=== PATIENT | male | born 1945 | race Caucasian/White ===

== ENCOUNTER 2021-12-06 07:00 | Inpatient (IN) ==
[2021-12-06] MEDS ORDERED: WATER, STERILE FOR INJ 10 ML VIAL ONE (07:02)
[2021-12-06] MEDS ORDERED: LIDOCAINE 1% LOCAL 20 ML VIAL ONE ×2 (07:02→17:00)
[2021-12-06] MEDS ORDERED: VANCOMYCIN HCL 1000MG/20ML VIAL ONE (07:02)
[2021-12-06] MEDS ORDERED: BUPIVACAINE 0.25% 30 ML VIAL ONE (07:02)
[2021-12-06] MEDS ORDERED: ceFAZolin 330 MG/ML 1 GM VIAL ONE (07:31)
[2021-12-06] MEDS ORDERED: fentaNYL citrate 100 MCG/2 ML VIAL ONE (07:32)
[2021-12-06] MEDS ORDERED: MIDAZOLAM HCL 5 MG/ML 1 ML VIAL ONE (07:32)
--- NOTE | 2021-12-06 07:57 | History & Physical Report ---
Date of Service December 06, 2021 Assessment & Plan (1) SSS (sick sinus syndrome): Plan: pt for a dual chamber ppm; re-discussed the procedure and potential risks of the procedure with the pt and consents signed History of Present Illness Chief Complaint: SOB Primary Care Provider: Raphael Garcias MD pt presents for an elective ppm today due to SSS +fatigue, SOB and foggy headedness with decreased activity Allergies Allergy/AdvReac Type Severity Reaction Status Date / Time No Known Allergies Allergy Unverified 01/09/15 17:54 Home Medications Medication Instructions Recorded Confirmed Type Glucosamine-Chondr (boswellia) PO 12/06/21 History calcium citrate 150 mg capsule mg PO 12/06/21 History diclofenac sodium 1 % topical gel 2 g TOPICAL QID 12/06/21 12/06/21 History ergocalciferol (vitamin D2) 10 mcg PO 12/06/21 History (400 unit) tablet geriatric multivitamin-min tab PO 12/06/21 History Most Recent Cardiac Tests: No Data to Display Past Med/Surg History Social History Smoking Status: Former smoker Hx Alcohol Use: Yes Alcohol type: beer Hx Substance Use: No Preferred Language: Singaporean Communication Ability: Effective User Experience Analyst Required: No Beliefs That Will Affect Care: None Current Living Situation: Spouse Other Information That Helps Us Care for You: No Feels Safe at Home: Yes Safety Concerns: Feels Safe At This Time Review of Systems All systems reviewed & are unremarkable except as noted in HPI & below Physical Exam Physical Exam: aaox3, NAD NC/AT, EOMI Supple No JVD Nrl S1/S2, No murmur CTA b/l no w/r/r soft nt/nd no LE edema b/l skin intact no focal deficits Results & Data ([facility]) Vital Signs (Past 12 Hours) Vital Signs Temp Pulse Resp BP Pulse Ox 12/06/21 07:18 36.6 C 45 L 16 142/70 H 98
--- NOTE | 2021-12-06 07:58 | Pre Anesthesia Assessment ---
Date of Service December 06, 2021 Pre Sedation Assessment Vital Signs Temp Pulse Resp BP Pulse Ox 12/06/21 07:18 36.6 C 45 L 16 142/70 H 98 Cardiovascular RRR, no murmur, no edema + bradycardic Respiratory normal respiratory effort, lungs clear to auscultation Pre-Sedation Airway Assessment Smoking Status: Former smoker Hx Sleep Apnea: No Hx Difficult Intubation: No Short, Thick Neck: No Thyromental Distance: < 3.5 Finger Breadths Oral Cavity: + WNL Mallampati Class: II ASA: ASA3 NPO Status Date of Last Intake of Fluids: 12/05/21 Date of Last Intake of Solid Food: 12/05/21 Procedure Planning Contraindications for Sedation: none Current Medications Reviewed: Yes Notes The planned sedation has been discussed with the patient. Informed Consent was obtained. I have identified the patient, determined the appropriateness of sedation and have assessed the patient immediately prior to the procedure. All medicine(s) and interventions are by my order.
--- NOTE | 2021-12-06 09:53 | Post Anesthesia Assessment ---
Date of Service December 06, 2021 Post Sedation Assessment Vital Signs Temp Pulse Resp BP Pulse Ox 12/06/21 07:18 36.6 C 45 L 16 142/70 H 98 Recovery Score Activity: Moves 4 extremities Respiration: Deep Breath/Cough Circulation: +/-20% PreAnes Value Consciousness: Fully Awake Oxygen Saturation: > 92% On Room Air Discharge Sedation Level of Care: Fast Track Phase II Post Sedation Plan On clinical assessment, the patient appears to have tolerated the sedation without complications. Patient is recovering as anticipated. Patient will continue to be monitored by nursing and may be discharged when sedation discharge criteria are met per below protocol. Upon Completions of procedure up to 15 minutes continue every 5 minute vital signs and the P.A.R. score; then discharge to a Phase I or Fast Track to Phase II per the following guidelines: * Discharge Patient to appropriate Phase II area if PAR is 8 or greater or return to pre- procedure baseline. The post - procedure orders will be as directed. * If PAR score is less than 8 or not return to pre-procedure baseline then patient will follow Phase I monitoring till PAR is reached for Phase II. The Phase I may be done in procedure room or may call to secure a Phase I area. * If naloxone or flumazenil are used for reversal, hold in Phase I for continued monitoring from when last reversal dose was given for a minimum of 60 minutes or longer pending the nurse and/or physician discretion of patient condition before discharge to Phase II. Please call the Sedation Physician to re-evaluate and complete post-note for discharge to Phase II area. Do NOT discharge from procedure sedation or Phase 1 until post- sedation evaluation note is complete by procedure /sedation MD Sedation Discharge Instructions to be given to the patient at discharge to home.
--- NOTE | 2021-12-06 09:54 | Operative Report ---
Post Operative Report Pre & Post Diagnosis SSS Operation Date: 12/06/21 08:00 dual chamber ppm HIS bundle EGMs peripheral venogram <No data on this case meets the specified criteria> I identified the patient and participated in the time-out.: Yes Procedure Operation Date: 12/06/21 08:00 <No data on this case meets the specified criteria> Surgeon Julia Henderson, DO Supervisor Dental Laboratory none Estimated Blood Loss 40 Findings Consistent with Post-Op Diagnosis Specimens none Description of Procedure see official report I attest to the content of the Intraoperative Record and any orders documented therein. Any exceptions are noted below.
--- NOTE | 2021-12-06 12:29 | XRay Report ---
SINGLE VIEW CHEST CLINICAL HISTORY: Status post pacemaker implantation. FINDINGS: An AP, portable, upright chest radiograph is compared to study dated 01/09/2015. A 2-lead car diac pacemaker has been placed and partially obscures the left upper chest. Leads project over the ri ght atrial appendage and the right ventricle. The heart is enlarged. The pulmonary vasculature is non congested. Chronic interstitial thickening is similar to previous. The lungs and pleural spaces are o therwise clear. There is a moderate left apical pneumothorax with approximate 4.5 cm of apical pleura l separation. The bony thorax is grossly intact. IMPRESSION: 1. A 2-lead cardiac pacemaker has been implanted as above. 2. There is a moderate left apical pneumothorax. 3. Cardiomegaly without radiographic evidence of congestive failure ACT 112: Negative or not required by law. Electronically signed by: Piter Salazar M.D. 12/06/2021 12:27 PM
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
--- NOTE | 2021-12-06 15:59 | XRay Report ---
XR chest 1V portable HISTORY: 76 years-old Male Left pneumothorax follow-up study in a patient with left-sided pneumothor ax COMPARISON: Chest radiograph of same day at 12:13 PM TECHNIQUE: AP view of the chest FINDINGS: The cardiac silhouette is enlarged. Left subclavian pacer redemonstrated. Large left-sided pneumothor ax is increased in size from the prior study, now with pleural separation of 9.3 cm at the left lung apex, previously 4.6 cm. Left lung volume loss. The right lung is clear. No pleural effusion, airspac e consolidation or overt pulmonary edema. The bones appear grossly intact. IMPRESSION: Large left-sided pneumothorax has increased in size from prior. Findings were discussed with physician assistant product manager Piter Cuevas on 12/06/2021 at 3:55 PM. ACT 112: Negative or not required by law. The above report was generated using voice recognition software. It may contain grammatical, syntax o r spelling errors. Electronically signed by: Ifeanyi Espinoza M.D. 12/06/2021 3:58 PM
[2021-12-06 16:25] LABS: Prothrombin Time 10.9 Seconds (9.0-12.0)
[2021-12-06 16:37] LABS: Basophils # (auto) 0.03 K/uL (0-0.2); Basophils % (auto) 0.3 %; Eosinophils # (auto) 0.12 K/uL (0-0.5); Eosinophils % (auto) 1.1 %; Hematocrit (blood only) 42.5 % (42-52); Hemoglobin 14.5 g/dL (14.0-18.0); Immature Granulocytes # (auto) 0.03 K/uL (0.00-0.02); Immature Granulocytes % (auto) 0.3 %; Lymphocytes # (auto) 1.25 K/uL (1.2-3.4); Lymphocytes % (auto) 11.3 %; Mean Corpuscular Hemoglobin 30.7 pg (25-34); Mean Corpuscular Hgb Conc 34.1 g/dL (32-36); Mean Corpuscular Volume 89.9 fL (80-100); Mean Platelet Volume 12.1 fL (7.4-10.4); Monocytes # (auto) 0.93 K/uL (0.11-0.59); Monocytes % (auto) 8.4 %; Neutrophils # (auto) 8.67 K/uL (1.4-6.5); Neutrophils % (auto) 78.6 %; Platelet Count 209 K/uL (130-400); RDW Coefficient of Variation 13.7 % (11.5-14.5); RDW Standard Deviation 45.7 fL (36.4-46.3); Red Blood Count 4.73 M/uL (4.7-6.1); White Blood Count 11.03 K/uL (4.8-10.8)
--- NOTE | 2021-12-06 17:33 | XRay Report ---
XR chest 1V portable HISTORY: chest tube placement COMPARISON: Chest 12/06/2021. FINDINGS: Interval placement of a left basilar chest tube. The large left pneumothorax has decreased in size. This demonstrates a pleural gap of 3.4 cm, previously measuring 9.3 cm. Left-sided dual-lloyd lesvia pacemaker is again noted. No mediastinal shift. The right lung is clear. There are few left mid t o lower lung zone linear densities suggesting residual atelectasis from reexpansion of the left lung. The heart remains mildly enlarged. IMPRESSION: Interval placement left-sided basilar chest tube with decrease in size in the left pneumothorax as de scribed above. ACT 112: Negative or not required by law. Electronically signed by: Rick Mata M.D. 12/06/2021 5:32 PM
--- NOTE | 2021-12-06 17:51 | Procedure Note ---
Procedure Note Date of Service December 06, 2021 Note PNEUMOTHORAX CATHETER PLACEMENT NOTE: Procedure: Pneumothorax catheter Chest Tube Placement Attending: Dr. Quesada APC: Piter Cuevas PA-C Indication: Enlarging left pneumothorax status post pacemaker placement Anesthesia: 15 mL lidocaine 1% Written consent was obtained by Piter Cuevas PA-C as delegated by Dr. Quesada and placed on the chart. Prior to procedure, chest x-ray films were reviewed by myself and demonstrated a large left pneumothorax greater than 9 cm. A time-out was completed verifying correct patient, procedure, site, positioning, and implant(s) or special equipment which revealed a left-sided cardiac pacemaker. Utilizing bedside ultrasound, chest wall was evaluated for location for optimal chest tube placement. Sliding lung was not identified above the fifth intercostal space. Location between the 5th and 6th left ribs were marked on the skin using gentle pressure with a thermometer probe cover. The left side chest wall was prepped with chlorhexidine and draped in the typical sterile fashion. 8mL of 1% Lidocaine without epinephrine was used to anesthetize the skin down to the dorsal surface. Air return heralded entry into the pleural space. Lidocaine was injected into the pleural space for increased anesthetization for a total of 15 mL of lidocaine. Scalpel was used to make small incision of the superficial tissue, parallel to the direction of the rib anatomy. Introducer needle with overlying catheter was inserted in perpendicular fashion taking care to ride just above the dorsal surface of the rib. Entry into the pleural space was heralded by air return into the syringe while under gentle aspiration. A stopcock was placed on the pigtail catheter and was immediately connected to pre-prepared HOWARD pleur-evac system. Pigtail was sutured securely in place using a 3-0 silk suture and Vaseline gauze was placed around the site and a sterile dressing was applied. Chest tube was placed to [id number] suction. Patient did have a vagal response to the completion of the procedure including diaphoresis and passing nausea. Otherwise, he tolerated the procedure well. There was no change in blood pressure, heart rate, respiratory rate, or oxygenation. SaO2 was above 90% for the entire procedure. Blood Loss: Minimal Complications: None Post procedure Chest X-ray was ordered and reviewed by myself which demonstrated low but adequate placement with a decrease in the pleural space to around 3-1/[address] Quesada was immediately notified by telephone with report of the procedure. Chest x-ray was then confirmed by radiology. The radiological report was reviewed and was consistent with my findings at the time of the placement. Coding CPT Codes Pulmonary/Thoracic - Pulmonary and Thoracic: 70856 Tube thoracostomy ([id number]) Pulmonary/Thoracic - Pulmonary and Thoracic: 87410 US, Chest, real time with imaging documentation ([id number]) [facility] Procedure Codes (Charges) Pulmonary/Thoracic Procedure 1: Pulmonary and Thoracic: 57937 Tube thoracostomy Procedure 2: Pulmonary and Thoracic: 73133 US, Chest, real time with imaging documentation
[2021-12-06] MEDS ORDERED: FLUTICASONE FUROATE 100MCG 14 PUFFS/INHALER INH SCH (21:00)
[2021-12-06] MEDS ORDERED: FLUTICASONE PROP HFA INH 44 MCG INHALER INH SCH (21:00)
[2021-12-07] MEDS ORDERED: ACETAMINOPHEN 325 MG TAB PO PRN (01:59)
--- NOTE | 2021-12-07 07:36 | XRay Report ---
XR chest 1V portable HISTORY: 76 years-old Male Ptx follow-up study in a patient with left-sided pneumothorax. COMPARISON: Chest radiograph 12/06/2021 TECHNIQUE: Portable AP view of the chest FINDINGS: Dual lead left subclavian pacer. The cardiac silhouette is enlarged. A left-sided chest tube projects over the lateral left lung base. There is decreased size of the left apical pneumothorax, now with p leural separation of approximately 5 mm. Mild bibasilar densities suggest atelectasis. Degenerative c hanges of the shoulders and spine. IMPRESSION: Left-sided chest tube in place with tiny residual left apical pneumothorax, decreased in size from prior. ACT 112: Negative or not required by law. The above report was generated using voice recognition software. It may contain grammatical, syntax o r spelling errors. Electronically signed by: Ifeanyi Espinoza M.D. 12/07/2021 7:34 AM
--- NOTE | 2021-12-07 09:20 | Pulmonology Progress Note ---
Date of Service December 07, 2021 Assessment & Plan (1) Pneumothorax, left: (2) S/P placement of cardiac pacemaker: Plan: Attending: Dr. Quesada Impression: 76-year-old male presented for elective pacemaker placement. During the procedure, patient had no complications, no hemodynamic shift, hypoxia, or any distress. Routine chest x-ray performed after the procedure revealed 4.6 cm left pleural separation. Repeat chest x-ray and 3- hour showed pleural separation of 9.5 cm. An 8 Belarusian pneumothorax catheter was placed in the midaxillary line on the left. Repeat chest x-ray this morning shows near resolution of the pneumothorax. Recommendations: 1. Left pneumothorax: * Iatrogenic status post left pacemaker placement. * 8 Belarusian pneumothorax catheter placed in the left mid axillary region late yesterday afternoon with immediate improvement to pneumothorax * Patient placed on suction with pneumothorax catheter last night at -20 mmHg. * Chest x-ray this morning with 5.6 mm of pleural separation * Chest tube was clamped at oh 8:30 AM this morning * Repeat chest x-ray at 11 AM * If no expansion of pneumothorax and no air leak, can remove chest tube * Probable discharge later today from a pulmonary perspective. Thank you for including us in the care of this patient. We will continue to follow along with you. Please feel free to call with any questions. Admission and Anticipated Discharge Date Admission Date: December 06, 2021 Supervising Physician Co-Signing Physician Notes Patient seen with PA-Art. Agree with assessment and plan. Chest tube removed at bedside. Minimal apical pneumothorax seen after clamping the chest tube for 4 hours. Patient informed to avoid lifting any heavy objects over 5 pounds for the next 10 days. Avoid flying in aircraft scuba diving for the next 4 to 6 weeks. Should he have any recurrence of chest pain or severe shortness of breath, he is to go to the ER. Subjective Attending: Dr. Quesada Patient seen and examined in room 240. Patient had iatrogenic pneumothorax yesterday status post pacemaker placement. Repeat chest x-ray showed expanding pneumothorax. An 8 Belarusian pneumothorax catheter was placed last evening and patient was placed on suction at -20 cm of water/millimeters of mercury. Patient did well overnight. On examination this morning, patient has no air leak. Repeat chest x-ray shows near resolution of left pneumothorax. Chest tube is clearly visualized and in place. On examination chest tube is secure. There is no drainage through the dressing. There is no pleural fluid or blood in the Pleur-evac. Patient reports some localized tenderness at the insertion site of the chest tube. He has no shortness of breath. No fever. No chest pain. No nausea or vomiting. He denies any acute changes. Some tenderness at the site of the pacemaker placement. Otherwise no acute complaints. Review of Systems Review of Systems: A total of 10 systems was reviewed and is negative other than as listed above in HPI. Physical Exam Physical Exam: GENERAL : No acute distress. Pleasant. Talkative. No conversational dyspnea EYES: No icterus, gaze conjugate NOSE: No evidence of epistaxis MOUTH: No lesions or candidiasis NECK: Supple LUNGS: CTA B/L, no wheezes, rales or rhonchi. Good breath sounds throughout. Breath sounds are equal bilaterally at the bases and at the apices. HEART: Regular, rate controlled ABDOMEN: Soft, NT, ND, BS Present EXTREMITIES: No LE edema, pedal pulses intact NEURO: A&OX3 Results & Data Results & Data ([facility]) Vital Signs (Past 12 Hours) Vital Signs Temp Pulse Pulse Resp BP BP Pulse Ox 12/07/21 07:35 36.9 C 60 18 133/76 94 12/07/21 03:50 36.9 C 65 16 132/73 96 12/07/21 00:00 60 12/06/21 23:39 36.8 C 64 20 104/64 95 Critical Care Results & Data Vital Signs (Past 12 Hours) Vital Signs Temp Pulse Pulse Resp BP BP Pulse Ox 12/07/21 07:35 36.9 C 60 18 133/76 94 12/07/21 03:50 36.9 C 65 16 132/73 96 12/07/21 00:00 60 12/06/21 23:39 36.8 C 64 20 104/64 95 Lab & Micro Results (Past 24 Hours) RBC 4.73 M/uL (4.7-6.1) 12/06/21 WBC 11.03 K/uL (4.8-10.8) H 12/06/21 Hgb 14.5 g/dL (14.0-18.0) 12/06/21 Hct 42.5 % (42-52) 12/06/21 MCV 89.9 fL (80-100) 12/06/21 MCH 30.7 pg (25-34) 12/06/21 MCHC 34.1 g/dL (32-36) 12/06/21 RDW Standard Deviation 45.7 fL (36.4-46.3) 12/06/21 RDW Coefficient of Variation 13.7 % (11.5-14.5) 12/06/21 Plt Count 209 K/uL (130-400) 12/06/21 MPV 12.1 fL (7.4-10.4) H 12/06/21 Neutrophils (%) (Auto) 78.6 % 12/06/21 Lymphocytes (%) (Auto) 11.3 % 12/06/21 Monocytes # (Auto) 0.93 K/uL (0.11-0.59) H 12/06/21 Eosinophils # (Auto) 0.12 K/uL (0-0.5) 12/06/21 Immature Granulocyte % (Auto) 0.3 % 12/06/21 Neutrophils # (Auto) 8.67 K/uL (1.4-6.5) H 12/06/21 Lymphocytes # (Auto) 1.25 K/uL (1.2-3.4) 12/06/21 Monocytes # (Auto) 0.93 K/uL (0.11-0.59) H 12/06/21 Eosinophils # (Auto) 0.12 K/uL (0-0.5) 12/06/21 Basophils # (Auto) 0.03 K/uL (0-0.2) 12/06/21 Immature Granulocyte # (Auto) 0.03 K/uL (0.00-0.02) H 12/06/21 No Data to Display Prothromb Time International Ratio 1.0 (0.9-1.1) 12/06/21 15:51 12/06/21 Diagnostic Findings (Past 24 Hours) Chest X-Ray 12/06/21 12:00 SINGLE VIEW CHEST CLINICAL HISTORY: Status post pacemaker implantation. FINDINGS: An AP, portable, upright chest radiograph is compared to study dated 01/09/2015. A 2-lead cardiac pacemaker has been placed and partially obscures the left upper chest. Leads project over the right atrial appendage and the right ventricle. The heart is enlarged. The pulmonary vasculature is noncongested. Chronic interstitial thickening is similar to previous. The lungs and pleural spaces are otherwise clear. There is a moderate left apical pneumothorax with approximate 4.5 cm of apical pleural separation. The bony thorax is grossly intact. IMPRESSION: 1. A 2-lead cardiac pacemaker has been implanted as above. 2. There is a moderate left apical pneumothorax. 3. Cardiomegaly without radiographic evidence of congestive failure ACT 112: Negative or not required by law. Electronically signed by: Piter Salazar M.D. 12/06/2021 12:27 PM Chest X-Ray 12/06/21 15:00 XR chest 1V portable HISTORY: 76 years-old Male Left pneumothorax follow-up study in a patient with left-sided pneumothorax COMPARISON: Chest radiograph of same day at 12:13 PM TECHNIQUE: AP view of the chest FINDINGS: The cardiac silhouette is enlarged. Left subclavian pacer redemonstrated. Large left-sided pneumothorax is increased in size from the prior study, now with pleural separation of 9.3 cm at the left lung apex, previously 4.6 cm. Left lung volume loss. The right lung is clear. No pleural effusion, airspace consolidation or overt pulmonary edema. The bones appear grossly intact. IMPRESSION: Large left-sided pneumothorax has increased in size from prior. Findings were discussed with physician admin assistant Piter Cuevas on 12/06/2021 at 3:55 PM. ACT 112: Negative or not required by law. The above report was generated using voice recognition software. It may contain grammatical, syntax or spelling errors. Electronically signed by: Ifeanyi Espinoza M.D. 12/06/2021 3:58 PM Chest X-Ray 12/06/21 17:07 XR chest 1V portable HISTORY: chest tube placement COMPARISON: Chest 12/06/2021. FINDINGS: Interval placement of a left basilar chest tube. The large left pneumothorax has decreased in size. This demonstrates a pleural gap of 3.4 cm, previously measuring 9.3 cm. Left-sided dual-chamber pacemaker is again noted. No mediastinal shift. The right lung is clear. There are few left mid to lower lung zone linear densities suggesting residual atelectasis from reexpansion of the left lung. The heart remains mildly enlarged. IMPRESSION: Interval placement left-sided basilar chest tube with decrease in size in the left pneumothorax as described above. ACT 112: Negative or not required by law. Electronically signed by: Rick Mata M.D. 12/06/2021 5:32 PM Chest X-Ray 12/07/21 08:00 XR chest 1V portable HISTORY: 76 years-old Male Ptx follow-up study in a patient with left-sided pneumothorax. COMPARISON: Chest radiograph 12/06/2021 TECHNIQUE: Portable AP view of the chest FINDINGS: Dual lead left subclavian pacer. The cardiac silhouette is enlarged. A left- sided chest tube projects over the lateral left lung base. There is decreased size of the left apical pneumothorax, now with pleural separation of approximately 5 mm. Mild bibasilar densities suggest atelectasis. Degenerative changes of the shoulders and spine. IMPRESSION: Left-sided chest tube in place with tiny residual left apical pneumothorax, decreased in size from prior. ACT 112: Negative or not required by law. The above report was generated using voice recognition software. It may contain grammatical, syntax or spelling errors. Electronically signed by: Ifeanyi Espinoza M.D. 12/07/2021 7:34 AM I & O Totals 24 Hours 12/06/21 12/07/21 12/08/21 06:59 06:59 06:59 Intake Total 555 / 555 Output Total 600 / 600 Balance -45 / -45 Cumulative 10/24/21 07:52 thru 12/07/21 05:58 Intake Total 555 Output Total 600 Balance -45 RT Ventilator Mngmt (Last Documented) Ventilator Ordered Settings Respiratory Rate 18 12/07/21 07:35 Ventilator - PT Measurements Respiratory Rate 18 PG Care Time/CCT Total # of Minutes Spent Total Time Spent with Patient: Total time spent is greater than 50% in coordination of care (as documented) at patient's floor/unit and/or counseling patient: 30 minutes Coding Level of Care Code 26820 Subseq Hosp Care Lvl 2 Diagnoses Pneumothorax, left J93.9 S/P placement of cardiac pacemaker Z95.0 Time Spent (min) 30
--- NOTE | 2021-12-07 11:58 | XRay Report ---
XR chest 1V portable HISTORY: 76 years-old Male Left pnx/chest tube up study in a patient with left-sided pneumothorax COMPARISON: Chest radiograph of same day at 7:06 AM TECHNIQUE: Portable AP view of the chest FINDINGS: Dual lead left subclavian pacer. The cardiac silhouette is enlarged. A left-sided chest tube projects over the lateral left lung base. There is unchanged size of the left apical pneumothorax with pleura l separation of approximately 5 mm. Mild bibasilar densities suggest atelectasis. Degenerative change s of the shoulders and spine. IMPRESSION: Left-sided chest tube in place with tiny residual left apical pneumothorax. ACT 112: Negative or not required by law. The above report was generated using voice recognition software. It may contain grammatical, syntax o r spelling errors. Electronically signed by: Ifeanyi Espinoza M.D. 12/07/2021 11:57 AM
--- NOTE | 2021-12-07 13:23 | Discharge Summary ---
Date of Service December 07, 2021 Admission HPI Per Admitting Provider pt presents for an elective ppm today due to SSS +fatigue, SOB and foggy headedness with decreased activity Admission Exam Per Admitting Provider aaox3, NAD NC/AT, EOMI Supple No JVD Bradycardic S1/S2, No murmur CTA b/l no w/r/r soft nt/nd no LE edema b/l skin intact no focal deficits Principal Diagnosis Iatrogenic Pneumothorax SSS s/p ppm Discharge Exam aaox3, NAD NC/AT, EOMI Supple No JVD Nrl S1/S2, No murmur CTA b/l no w/r/r soft nt/nd no LE edema b/l skin intact no focal deficits ENMT Mallampati Class: II Respiratory normal respiratory effort, lungs clear to auscultation Cardiovascular RRR, no murmur, no edema Rate/Rhythm: + bradycardic Discharge Data Allergies Allergy/AdvReac Type Severity Reaction Status Date / Time No Known Allergies Allergy Unverified 01/09/15 17:54 Consultations 12/06/21 12:42 Consult Pulmonology Routine Procedures Performed Chest tube on the left Operation Date: 12/06/21 08:00 Actual Procedures p Pacer with A/V Leads (Dual) - Julia Henderson DO s Lead LV (No Priopr Implant) - DO carlita Olivares Angio Extremity Unilateral - Julia Henderson DO Ordered Studies 12/06/21 07:00 EP Lab Images for PACS ONCE 12/06/21 07:02 CL Cath Imgs for PACS use only Routine 12/06/21 16:09 US point of care ultrasound Routine Hospital Course (1) SSS (sick sinus syndrome): pt underwent dual chamber ppm complicated with a left sided PTX that required a chest tube. His ppm was interrogated the day of discharge and was normal functioning. (2) Pneumothorax, left: s/p chest tube; it was removed and post CXR looks good; ok for discharge from pulmonary perspective Total Time Total Time Spent Total Time Spent (In Minutes): 30 Discharge Plan Discharge Items Patient Disposition: Home - Self-Care Reason For Visit: STATUS POST DEVICE IMPLANTATIONS,PNEUMOTHORAX Discharge Diagnosis: SSS Condition on Discharge: Good Activity: As commented below Activity Comment: do not raise the left elbow over the left shoulder for 1 week Lifting: No more than 10 pounds Lifting Comment: do not lift more than 10 pounds with the left arm for 2 weeks Bathing: Keep incision dry Bathing Comment: keep dressing on & dry until wound check next week Sexual Activity: After two weeks Driving/Machine Use: Resume 1 day after discharge Non-emergency contact: Child Care Teacher Call non-emergency contact if: you have any medication questions Follow-up/Referrals: Raphael Garcias MD [Primary Care Provider] - Diet: Heart Healthy [facility] Attending Provider Instructions: Device and wound check at [facility] Next week [facility] Weed Eradicator Provider Instructions: An 8 arabic chest tube was placed to treat your pneumothorax (collapsed lung). On the day of discharge you still had a very small residual separation of the pleural of 5mm. You had no air leak and no further hypoxia and the chest tube was removed without any complication at 12:10pm. You should leave your dressing on for 48 hours. If it falls off, you can cover the site with a band aid. You should avoid immersion of your surgical site in bathtub, hot tub, or other bodies of water for 2 weeks. You should also avoid activities with changes in pressure such as air travel, scuba diving, etc. If you develop sudden shortness of breath or chest pain, you should call 911 and report to the emergency room immediately for a chest xray. There is a small chance that the defect in your pleural lining (the lining around the lug) could still leak air into the space around your lung. You should avoid lifting more that 5 pounds for at least the next two weeks. If you have any question regarding the treatment for your pneumothorax, please feel free to call our office at [phone]. No outpatient follow up visits are needed with our office. Thank you for allowing us to participate in your care. [facility] , Pulmonary Department Pending Studies at Discharge: No Stand-Alone Forms: Anesthesia/Sedation, Adult, My [facility] Medications and DC Order Prescriptions: Continued Glucosamine-Chondr (boswellia) 1 tab PO DAILY RF: 0 geriatric multivitamin-min Tablet 1 tab PO DAILY RF: 0 diclofenac sodium 1 % Gel 2 g TOPICAL DAILY RF: 0 No Action cholecalciferol (vitamin D3) 25 mcg (1,000 unit) Tablet 25 mcg PO DAILY RF: 0 calcium citrate-vitamin D3 315 mg-6.25 mcg (250 unit) Tablet 1 tab PO DAILY RF: 0 Discharge Orders: Discharge Order (Routine); Ordered 12/06/21 Ordered By: Julia Henderson Admission Data Admit Date/Time: 12/06/21 12:43 Attending Provider: Dandre Mayer Admit Provider: Dandre Mayer Primary Care Provider: Raphael Garcias Other Providers: Piter Cuevas ; Germán Quesada ; Mino Moncada ; Carl Song Other Interventions: Discharge Summary Assessment (RN) Last Done: 12/06/21 12:10
--- NOTE | 2021-12-07 13:27 | Cardiology Progress Note ---
Date of Service December 07, 2021 Assessment & Plan (1) Pneumothorax, left: Plan: s/p chest tube removal and post cxr looks good; ok for discharge home from pulmonary perspective (2) SSS (sick sinus syndrome): Plan: ppm interrogated today and normal function; ok for discharge home; pt declines metoprolol it is ok to not be on it. Admission and Anticipated Discharge Date Admission Date: December 06, 2021 Subjective pt feels fine; no SOB ambulated without problems repeat CXR after chest tube removal looked good Review of Systems Review of Systems: All systems reviewed & are unremarkable except as noted in HPI & below Physical Exam Physical Exam: aaox3, NAD NC/AT, EOMI Supple No JVD Nrl S1/S2, No murmur CTA b/l no w/r/r soft nt/nd no LE edema b/l skin intact no focal deficits left pectoral incision intact, no hematoma or ecchymosis Results & Data ([facility]) Vital Signs (Past 12 Hours) Vital Signs Temp Pulse Resp BP Pulse Ox 12/07/21 11:29 36.7 C 61 18 144/75 H 95 12/07/21 07:35 36.9 C 60 18 133/76 94 12/07/21 03:50 36.9 C 65 16 132/73 96 Laboratory Results Abnormal Lab Results 12/06/21 12/06/21 15:51 15:51 WBC 11.03 H RBC 4.73 Hgb 14.5 Hct 42.5 MCV 89.9 MCH 30.7 MCHC 34.1 RDW Std Deviation 45.7 RDW Coeff of Rosa M 13.7 Plt Count 209 MPV 12.1 H Immature Gran % (Auto) 0.3 Neut % (Auto) 78.6 Lymph % (Auto) 11.3 Kidder % (Auto) 8.4 Eos % (Auto) 1.1 Baso % (Auto) 0.3 Neut # (Auto) 8.67 H Lymph # (Auto) 1.25 Kidder # (Auto) 0.93 H Eos # (Auto) 0.12 Baso # (Auto) 0.03 Immature Gran # (Auto) 0.03 H PT 10.9 INR 1.0 Diagnostic Findings repeat CXR post chest tube removal mild small residual ptx Medications Administered Current Inpatient Medications Acetaminophen (Acetaminophen 325 Mg Tab) 650 mg PO Q4H PRN PRN Reason: Pain Stop: 01/06/22 01:58 Last Admin: 12/07/21 02:10 Dose: 650 mg Documented by: Fluticasone Furoate (Fluticasone Furoate 100mcg 14 Puffs/Inhaler) 1 puffs INH HS DANIEL Stop: 01/05/22 20:59 Last Admin: 12/06/21 21:33 Dose: 1 puffs Documented by:
--- NOTE | 2021-12-08 08:56 | Electrocardiogram Report ---
Test Reason : Blood Pressure : / mmHG Vent. Rate : 060 BPM Atrial Rate : 060 BPM P-R Int : 198 ms QRS Dur : 080 ms QT Int : 414 ms P-R-T Axes : 013 028 -02 degrees QTc Int : 414 ms Atrial-paced rhythm Abnormal ECG When compared with ECG of 27-JAN-2014 09:23, Electronic atrial pacemaker has replaced Sinus rhythm T wave amplitude has decreased in Anterolateral leads Confirmed by Melquiades Adrian ([id number]) on 12/08/2021 8:56:07 AM Referred By: Julia Henderson Confirmed By:Melquiades Adrian
--- NOTE | 2021-12-19 11:22 | Operative Report (OR) ---
DATE OF PROCEDURE: 12/06/2021. PREOPERATIVE DIAGNOSIS: Sick sinus syndrome. POSTOPERATIVE DIAGNOSIS: Sick sinus syndrome. PROCEDURE: Dual-chamber rate responsive permanent pacemaker under fluoroscopic guidance along with peripheral venogram and intracardiac electrogram His bundle recording. SURGEON: Julia Henderson DO. EXTRACTION MACHINE OPERATOR: None. ANESTHESIA: Monitored conscious sedation administered under my supervision by Doe Elizabeth. Start time 08:30, end time 09:51. Total of 4 mg of Versed and 100 mcg of fentanyl. INTRAVENOUS FLUIDS: 60 mL. ANTIBIOTICS: 1 g of Ancef. BLOOD LOSS: 40 mL. CONTRAST: 17 mL. COMPLICATIONS: None. CONDITION: Stable. URINE OUTPUT: Not applicable. SPECIMENS: None. FINDINGS: See below. DRAINS: None. INDICATIONS: This is a 76-year-old gentleman with a past medical history for hyperlipidemia, mild aortic stenosis and aortic regurgitation, as well as mitral regurgitation. Carotid artery disease minimally bilaterally on a duplex from 09/2021, history of squamous cell skin cancer. He has had worsening symptoms of his sick sinus syndrome and was recommended a pacemaker. CONSENT: Consent was obtained prior to the patient going into electrophysiology lab. The patient was explained risks, benefits, and alternatives of procedure. Risks include, but not limited to, sudden cardiac , cardiac arrhythmias, cerebrovascular accident, myocardial infarction, injury to the blood vessels, chamber of the heart and lung, bleeding and infection. The patient understood these risks and agreed to the procedure as planned. Informed consent was obtained. DESCRIPTION OF PROCEDURE: The patient was brought into electrophysiology lab in a fasting state. He was connected to continuous cardiac monitoring. A time-out was performed to ensure patient identity and procedure correctly. He was prepped and draped over the left infraclavicular space in normal surgical standard fashion. Monitored conscious sedation was given throughout the procedure for patient's comfort level. Bandana precautions were maintained throughout the procedure. 10 mL of 1% lidocaine-bupivacaine mixture was given in the left deltopectoral groove. An incision was made in the left deltopectoral groove. Blunt dissection was performed down to the pectoralis muscle. Then, using blunt dissection over the pectoralis muscle within the pectoralis fascia, a pacemaker pocket was created. Then, a peripheral venogram was performed to identify the axillary vein. Venous axillary access was attempted, but I was having difficulty, so I then ended up doing a cut down to the cephalic. The cephalic vein was isolated using 0 silk ties and then nicked with an 11 blade and a guidewire was inserted without any resistance. A 7-Ethiopian sheath was inserted over the guidewire without any resistance. Dilator was removed and second guidewire was inserted through the sheath to allow for retained venous access. Sheath was removed, flushed, reinserted over the dilator, then reinserted over one of the guidewires, the guidewire and dilator removed. The His C315 sheath was advanced through the 7-Ethiopian sheath over a Glidewire into the right ventricle. The Glidewire and dilator removed. Then, the left bundle lead was advanced through the His C315 sheath and intracardiac electrogram His bundle recordings were performed, see below for results. Once I found out where the His was, I then moved my camera into [place] 30 and marked where this was on my fluoroscopy screen, then came down about 2 cm from this in a line that would extend out to the apex. We began to position my left bundle lead coming on and pacing in different areas to see if I had a W form pacing pattern in lead V1. Ultimately, I had decent signals so then I moved the camera to [place] 30 and started giving a series of clockwise turns to screw the lead into the septum. I did have to reposition the lead due to just not advancing as well and ultimately though I had a a good spot where it advanced into the septum and I developed a R1 in my V1 pacing complex . I then slit the His C315 sheath under fluoroscopic guidance. A second 7-Ethiopian sheath was inserted over the retained guidewire and the guidewire and dilator removed. The right atrial lead was then advanced into right atrium and positioned in atrial appendage under fluoroscopic guidance. Of note, I did have to reposition it one time, there was adequate pacing and sensing thresholds and no diaphragmatic stimulation with high output pacing. The 7-Ethiopian sheath around the right atrial lead was then peeled away and the lead was fixated to pectoralis muscle using 0 silk suture. The 7-Ethiopian sheath then, around the left bundle lead was peeled away and the lead was fixated to pectoralis muscle using 0 silk suture. The pocket was flushed with copious amounts of vancomycin and saline wash and inspected for hemostasis. Then, the leads were attached to the pulse generator making sure the pins were in appropriate position, passed set screws, and set screws were all tightened. Pulse generator was then placed in the antibiotic pouch followed then by being placed in the pocket, making sure the leads were lying flat beneath the device. The incision was closed in a 3-layer fashion using 2-0 Vicryl interrupted suture followed by 3-0 Vicryl interrupted suture, followed by a 4-0 Monocryl running stitch and Dermabond was applied followed by Telfa and Tegaderm dressing. EQUIPMENT: 1. The pulse generator is a Medtronic Myra XT DR JD Olivo [id number], serial number [id number]. 2. TYRX pouch, reference [id number], lot number [id number] . 3. Right atrial lead, Medtronic 5076-52 cm, serial number [id number]. 4. Left bundle lead, Medtronic 3830-69 cm, serial number [id number]. INTRAOPERATIVE FINDINGS: 1. Intracardiac electrogram His bundle recordings, AH 112 milliseconds, HV 35 milliseconds. 2. Right atrial lead, P waves 4.4 millivolts, impedance 597 ohms, threshold 0.9 volts at 0.4 milliseconds. 3. Left bundle lead, R waves 5.6 millivolts, impedance 1100 ohms, threshold 0.4 volts at 0.4 milliseconds. FINAL MEASUREMENTS THROUGH THE DEVICE. 1. Right atrial lead, P waves 4.3 millivolts, impedance 475 ohms, threshold 0.5 volts at 0.4 milliseconds. 2. Left bundle lead, R waves 5 millivolts, impedance 912 ohms, threshold 0.5 volts at 0.4 milliseconds. IMPRESSION: Successful dual chamber rate responsive permanent pacemaker under fluoroscopic guidance along with peripheral venogram secondary to sick sinus syndrome. PLAN: Monitor the patient post-procedure. A 12-lead ECG, chest x-ray and recheck the device. If everything looks fine, he can go home later that day. He is not to raise the left elbow or left shoulder for 1 month. He cannot lift the left wrist more than 10 pounds with left arm for 2 weeks. He is to keep the dressing on and dry until his wound check next week. Job ID: [id number] [facility]
== END 2021-12-07 14:09 | disposition home or self-care (01) | DRG 243 ==
LOC: EP 07:00 → 2S 12:43

== ENCOUNTER 2024-08-04 17:06 | Inpatient (IN) ==
--- NOTE | 2024-08-04 18:18 | XRay Report ---
Clinical History: Chest pain Technique: A frontal view of the chest was obtained Comparison is made to the prior examination dated 12/07/2021 Findings: There are mild interstitial opacities in the right upper lobe and left lower lobe. The heart size is within normal limits. No left pleural effusion or pneumothorax is seen. There is a small right pleural effusion. No fracture is noted. There is a left chest wall pacemaker device Impression: 1. Small right pleural effusion 2. Possible mild bilateral bronchopneumonia Electronically signed by Franck Mckee 08-04-2024 6:15 PM
[2024-08-04 18:51] LABS: Basophils # (auto) 0.04 K/uL (0.00-0.20); Basophils % (auto) 0.4 %; Eosinophils # (auto) 0.03 K/uL (0.00-0.50); Eosinophils % (auto) 0.3 %; Hematocrit (blood only) 35.5 % (42.0-52.0); Hemoglobin 12.4 g/dl (14.0-18.0); Immature Granulocytes # (auto) 0.04 K/uL (0.01-0.20); Immature Granulocytes % (auto) 0.4 %; Lymphocytes # (auto) 1.05 K/uL (1.20-3.40); Lymphocytes % (auto) 9.6 %; Mean Corpuscular Hemoglobin 28.9 pg (25.0-34.0); Mean Corpuscular Hgb Conc 34.9 g/dL (32.0-36.0); Mean Corpuscular Volume 82.8 fL (80.0-100.0); Monocytes % (auto) 10.1 %; Neutrophils # (auto) 8.65 K/uL (1.40-6.50); Neutrophils % (auto) 79.2 %; Platelet Count 291 K/uL (130-400); RDW Coefficient of Variation 12.8 % (11.5-14.5); Red Blood Count 4.29 M/uL (4.70-6.10); White Blood Count 10.91 K/ul (4.8-10.8)
[2024-08-04 19:06] LABS: Albumin Globulin Ratio 1.1 (0.9-2); Albumin Level 3.7 gm/dl (3.4-5.0); BUN Creatinine Ratio 18.2 (10-20); Bilirubin,Total 0.8 mg/dl (0.2-1.0); Calcium 8.8 mg/dl (8.6-10.3); Creatinine Clr Calc Pharmacy 93.7 ml/min; Globulin 3.5 gm/dl (2.5-4.0); Potassium 4.2 mmol/L (3.5-5.1); Total Protein 7.2 gm/dl (6.0-8.3)
[2024-08-04 19:12] LABS: Troponin I High Sensitivity 39.1 pg/ml (0-20)
[2024-08-04 19:20] LABS: INR 1.1 (0.9-1.1); Partial Thromboplastin Ratio 1.1; Partial Thromboplastin Time 30 Seconds (21-31); Prothrombin Time 11.4 Seconds (9.0-12.0)
[2024-08-04 19:32] LABS: Adenovirus PCR Not Detected (NotDetected); Bordetella parapertussis PCR Not Detected (NotDetected); Bordetella pertussis PCR Not Detected (NotDetected); Chlamydia pneumoniae PCR Not Detected (NotDetected); Coronavirus 229E PCR Not Detected (NotDetected); Coronavirus CoV-2 (COVID19)PCR Not Detected (NotDetected); Coronavirus HKU1 PCR Not Detected (NotDetected); Coronavirus NL63 PCR Not Detected (NotDetected); Coronavirus OC43PCR Not Detected (NotDetected); Human Metapneumovirus PCR Not Detected (NotDetected); Influenza A PCR Not Detected (NotDetected); Influenza B PCR Not Detected (NotDetected); Mycoplasma pneumoniae PCR Not Detected (NotDetected); Parainfluenza Virus 1 PCR Not Detected (NotDetected); Parainfluenza Virus 2 PCR Not Detected (NotDetected); Parainfluenza Virus 3 PCR Not Detected (NotDetected); Parainfluenza Virus 4 PCR Not Detected (NotDetected); Respiratory Syncytial VirusPCR Not Detected (NotDetected); Rhinovirus/Enterovirus PCR Not Detected (NotDetected)
[2024-08-04] MEDS: SODIUM CHLORIDE 0.9% 500 ML IV ONE (19:33)
[2024-08-04 20:19] LABS: Magnesium 1.8 mg/dl (1.7-2.4)
[2024-08-04 20:34] LABS: Thyroid Stimulating Hormone 0.891 uIu/ml (0.300-4.500)
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
[2024-08-04] MEDS: DOXYCYCLINE HYCLATE 100 MG CAP PO STA (21:08)
[2024-08-04] MEDS: cefTRIAXone SODIUM 2,000 MG/50 ML BAG IV STA (21:08)
[2024-08-04] MEDS: ALBUT/IPRATROP 3MG/0.5MG NEB 3 ML VIAL NEB STA (21:09)
--- OUTSIDE RECORDS SUMMARY | 2024-08-04 23:16 | External Medical Summary | Summary of Care ---
Author Name Unknown Organization [facility] Address [address] [place] [address] Phone [phone] Care Team Providers Care Fitness Sales Consultant Name Role Phone Raphael Reed MD Primary Care Provider + Reason for Visit * Reason Comments Follow Up Patient here for a s kin check, hx of NMSC and AK. He is not aware of any new or changing skin lesions. 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 [address] [place] [address] Referral ID Status Reason Start Date Expiration Date Visits Requested Visits Authorized [id number] Authorized Specialty Services Required 01/16/2024 [id number] Encounter Details Date Type Department Care Team (Late st Contact Info) Description 04/28/2024 1:45 PM EDT Office Visit Dermatology State Nicki Ortiz [address] [place] [address] Raphael Cortes MD [address] [facility] [place] [address] Actinic skin damage*; Seborrheic keratoses; Hx of squamous cell carcinoma; Scar; Actinic keratosis; Skin neoplasm Allergies No known active allergiesdocumented as of this encounter (statuses as of 04/28/2024) Medications Medication Sig Dispensed Refills Start Date End Date Status Osxz-Qiybv-KIE-Boswelli a-Vit D (GLUCOSAMINE CHONDROITIN COMPLX) TABS Take by mouth. 05/04/2017 Active Multiple Vitamins-Minerals (MULTIVITAMIN MEN 50+) TABS Take 1 Tab by mouth daily. Active Acetaminophen 500 MG Oral Tablet (TYLENOL) Take 2 Tablets by mouth every 8 hours as needed (pain). 06/29/2020 Active Vitamin D 25 MCG (1000 UT) Oral Tablet Take by mouth. Activ e Calcium Citrate-Vitamin D3 315-6.25 MG-MCG Oral Tablet Take by mouth 1 Tablet daily . Active Rosuvastatin Calcium 10 MG Oral Tablet (Crestor)Indications:Mi xed hyperlipidemia TAKE 1 TABLET BY MOUTH EVERY DAY IN THE MORNING 90 Tablet 1 12/25/2023 Active Sertraline HCl 50 MG Oral Tablet (Zoloft)Indications:Mod erate depressive disorder,KARIME (generalized anxiety disorder) TAKE 1 TABLET BY MOUTH EVERY DAY 90 Tablet 1 02/23/2024 Active Fluorouracil 5 % External Cream (Efudex) Apply thin layer to scalp twice daily for 3 weeks 40 g 04/28/2024 Active documented as of this encounter (statuses as of 04/28/2024) Active Problems Problem Noted Date Diagnosed Date Generalized anxiety disorder 07/11/2023 Moderate depressive disorder 07/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 Sick sinus syndrome 12/16/2021 S/P placement of cardiac pacemaker 12/16/2021 Mild aortic stenosis 07/22/2021 Mild mitral regurgitation 07/22/2021 Mild aortic valve regurgitation 09/01/2019 History of squamous cell carcinoma of skin 06/24 Chronic sinus bradycardia 06/24/2019 Squamous cell carcinoma in s itu (SCCIS) of skin of left cheek 07/11/2018 Hyperlipidemia 05/20/2013 Overview: Diet controlled ICD-10 update of inactive term documented as of this encounter (statuses as of 04/28/2024) Resolved Problems Problem Noted Date Diagnosed Date Resolved Date Encounter for examination fo r normal comparison and control in clinical research program 06/12/2019 09/28/2020 Overview: PERT (Performance of Epi proColon in Repeated Testing in the Intended Use Population) Epi proColon is an FDA approved blood test designed to detect Colon Cancer. The object of this study is to evaluate longitudinal performance of Epi proColon with respect to test positivity, longitudinal adherence to Epi proColon screening, adherence to follow-up colonoscopy and diagnostic yield, as well as assay failure rates. Contacts: PI: Dr. Joyce Bliss-Jacqui Castrejon [facility]- Ofelia Lewis ([phone]) [facility]- Oliva Santacruz ([phone]) [facility]- Melissa Castellon ([phone]) Diagnosis changed due to Research Module. Go to Snapshot for study details. documented as of this encounter (statuses as of 04/28/2024) Immunizations Name Administration Dates Next Due COVID-19 mRNA, LNP-s, No Pre serve, 2-Dose Series (Moderna) 10/03/2020,08/30/2020 DTP Vaccine 01/09/2015 Pneumococcal Conjugate Vacc, 13 Valent (Prevnar) 11/03/2015 Pneumococcal Polysaccharide PPV23 (Pneumovax) RSV Vac., Recomb, Adjuvant, PF,0.5 Ml (Arexvy) 1 Season Influenza, Quad, PF, Adjuvanted, 65+ Yrs, IM (FLUAD) 04/23/2020 Seasonal Influenza, High Dos e, Trivalent, PF, IM (Fluzone HD) 05/03/2022,05/08/2019 Seasonal Influenza, PF, 6 M & above, IM , (FluLaval or Fluzone) 05/06/2018,05/04/2017 Seasonal Influenza, Quadrivalent Hd (Fluzone Hd) 05/09/2023,05/12/2021 Seasonal Influenza, Quadrivalent, No Preserve, I M 05/18/2016,06/04/2015 Seasonal Influenza, Trivalen t, (IIV3), with Preserv, (Fluzone) 05/20/2014,05/20/2013 TDAP (age 10 and older)(Boostrix) 01/25/2023 TDAP, Age 7 and older, IM (Adacel) 10/18/2012 Varicella Zoster Vaccine (Adult) 05/20/2010 Zoster Vaccine Recombinant (Shingrix) 05/06/2019 ,12/26/2018 documented as of this encounter Social History Tobacco Use Types Packs/Day Years Used Date Smoking Tobacco: Former Cigarettes 1 20 0 08/06/1962 - 08/06/1982 Smokeless Tobacco: Never Alcohol Use Standard Drinks/Week Comments Yes 14 (1 standard drink = 0.6 oz pu re alcohol) PHQ-2 Answer Date Recorded PHQ Adult Total Score 0 07/11/2023 Hunger Vital Sign Answer Date Recorded Within the past 12 months, y ou worried that your food would run out before you got the money to buy more. Never true 07/05/20 22 Within the past 12 months, t he food you bought just didn't last and you didn't have money to get more. Never true 07/05/2022 Utilities Answer Date Recorded Do you have trouble paying y our heating, water, or electric bill? (Adult - for ages 18 years and over) Not on file 01/22/2024 Is your family able to pay t he heat, water, or electric bill? (Household - for ages 0-17 years) Not on file 01/22/2024 Does your family have access to good internet? (Household - for ages 0-17 years) Not on file 01/22/2024 Social Connections Answer Date Recorded How often do you feel lonely or isolated from those around you? (Adult - for ages 18 years and over) Not on file 01/22/2024 Sex and Gender Information Value Date Recorded Sex Assigned at Male 06/24/2019 8:12 AM EST Gender Identity Male 06/24/2019 8:12 AM EST Sexual Orientation Straight 06/24/2019 8: 12 AM EST Job Start Date Occupation Industry Not on file Not on file Not on file documented as of this encounter Progress Notes * Raphael Cortes MD - 04/28/2024 1:46 PM EDT SUBJECTIVE: Chief Complaint: Chief Complaint Patient presents with Follow Up Patient here for a skin check, hx of NMSC and AK. He is not aware of any new or changing skin lesions. HPI: Jorge Chaves is a 79 year old male seen for a full skin check for history of nonmelanoma skin cancer. No spots of concern today Originally from [place]. Retired from [employer]. Lived all over the severance DERMATOLOGIC HISTORY: 2016 - SCCis, left cheek Actinic keratoses REVIEW OF SYSTEMS: CONSTITUTIONAL: negative SKIN: No new or changing moles or rashes other than those noted in HPI HEME/LYMPH: No new or enlarging lumps or bumps OBJECTIVE: GEN: Healthy, alert, no distress, appears oriented, pleasant, and cooperative SKIN: Detailed exam of hair, face, trunk, arms, and legs A. Right nasal tip - red/pink papule, telangiectasias - inflammatory? R/o bcc Scalp with diffuse gritty erythematous macules/papules Well-healed scar(s) at primary site(s) without evidence of recurrence Scattered on face, chest, back - diffuse mottled hypopigmented and hyperpigmented macules without significant irregularity. Associated telangiectasias At the trunk and extremities are several scattered mesa/brown hyperkeratotic stuck on appearing waxypapules. ASSESSMENT/PLAN: Skin neoplasm(s) - Shave biopsy of the following lesion(s) A. Right nasal tip - red/pink papule, telangiectasias - inflammatory? R/o bcc Procedure - Tangential biopsy of skin Biopsy by shave was recommended for the lesion(s) noted above to establish and confirm diagnosis. The procedure, risks, benefits, alternatives and expected outcomes were discussed with the patient and consent was obtained. Time out called. Patient identified, procedure verified, site(s) identified and verified. Patient and staff present in agreement. Area prepped with alcohol and anesthetized using 0.5% lidocaine with epinephrine at 1:200,000 concentration. Biopsy of lesion(s) performed. 20% AlCl and bandaging applied. Specimen(s) sent to pathology. Patient instructed in routine post-op care. Actinic Keratoses - The patient was counseled on the premalignant nature of these lesions. - Discussed observation only, cryotherapy and topical Efudex. Patient opted for topical efudex. Will treat with efudex 5% cream twice daily for 3 weeks to be applied to scalp. Patient advised that local skin reactions such as erythema (redness), blistering, irritation, itch, burning, and pain is expected with use of this medication and that individuals with brisk inflammatory response often obtain the best clinical response. Patient to stop if significant ulceration or irritation develops and is intolerable. Scar(s), History of Nonmelanoma Skin Cancer - Well healed scar(s) with no evidence of recurrence - Recommended periodic skin exams and instructed to call clinic if patient notices any changing lesions, including rapid enlargement, changes in color or shape or symptoms, bleeding, or other concerns. The common features and behavior of non-melanoma skin cancers (e.g. basal cell carcinoma/squamouscell carcinoma) as well as the features of melanoma were also reviewed. -Daily sun protection recommended including physical (i.e. clothing) and chemical blockers. Broad spectrum sunscreens with at least SPF 30 for UVA and UVA protection were recommended. Chronic Actinic Damage - Discussed that skin changes are due to chronic sun exposure. - Daily sun protection recommended as discussed above Seborrheic keratoses - The benign nature of these lesions was discussed with the patient and that no treatment is indicated today. Raphael Cortes MD REF: R[address]HA[address] RE[address] [place], [place] [address] (office) [phone] (fax) PCP: RAPHA[address] RE[address] Dr [place] [address] [phone] documented in this encounter Nursing Notes * Nilda Goodrich LPN - 04/28/2024 1:39 PM EDT Chief Complaint Patient presents with Follow Up Patient here for a skin check, hx of NMSC and AK. He is not aware of any new or changing skin lesions. documented in this encounter Plan of Treatment Upcoming Encounters Date Type Department Care Team (Latest Contact Info) Description 05/05/2024 9:30 AM EDT Hospital Encounter ENDO [facility], Endoscopy Room [facility] [address] [place] [id number] Doe Candelaria MD [address] [place] [address] 05/05/2024 9:30 AM EDT - 05/05/2024 10:00 AM EDT Surgery ENDO [facility], Endoscopy Room [facility] [address] [place] [id number] Doe Candelaria MD [address] [place] [address] COLONOSCOPY FLEXIBLE PROXIMAL DIAGNOSTIC 08/27/2024 2:40 PM EST Office Visit General Internal Medicine [facility] [address] [facility] [place] [address] Raphael Reed MD [address] [facility] [place], [place] [address] Scheduled Procedures Name Priority Associated Diagnoses Date/Ti me COLONOSCOPY FLEXIBLE PROXIMAL DIAGNOSTIC History of colonic polyps 05/05/2024 9:30 AM EDT Health Maintenance Due Date Last Done Comments Adult Wellness Visit 04/12/2018 04/12/2017 COVID-19 Vaccine ( season) 2024 09/26/2023, 10/03/2020, 08/30/2020 Influenza Vaccine (FLU shot) (#1) 2024 05/22/2023, 05/09/2023, 05/03/2022, Additional history exists Depression Monitoring 07/11/2024 07/11/2023 DTap/Tdap Vaccines (4 - Td or Tdap) 01/25/2033 01/25/2023, 01/09/2015, 10/18/2012 Pneumococcal Vaccine: 65+ Years Completed 11/03/2015, 10/18/2012 Fecal Occult Blood Test Discontinued 03/01/2017, 07/08 Zoster Vaccines Completed 05/06/2019, 12/05, 05/20/2010 Cologuard Discontinued 10/01/2020, 09/07, 09/28/2020 Colonoscopy Discontinued 10/31/2023, 10/31/2023 Colorectal Cancer Screening Discontinued FOBT ANNUALLY,AGES 18-90 Discontinued 024, 10/31/2023, 03/01/2017, Additional history exists RETIRED - COLONOSCOPY-ANNUAL AGES 18-100 Discontinued 10/31/2023, 10/31/2023 HPV (Gardasil) Vaccine Aged Out No lo nger eligible based on patient's age to complete this topic Hepatitis B Vaccine Aged Out No longe r eligible based on patient's age to complete this topic MENINGOCOCCAL (MENACTRA/MENVEO) Aged Out No longer eligible based on patient's age to complete this topic Sigmoidoscopy Discontinued documented as of this encounter Medical Devices Implanted Type Area Newspaper Deliverer Device Identifier Shelf Expiration Date Model / Serial / Lot Hemostatic Clip Res 235cm - [id number] Implanted:Qty: 2 on 10/31/2023 by Doe Candelaria MD at ENDOSCOPY [facility] [employer] : ENDOSCOPY 02/15/2026 [id number] / / Hemostatic Clip Res 235cm - [id number] Implanted:Qty: 4 on 10/31/2023 by Doe Candelaria MD at ENDOSCOPY [facility] [employer] : ENDOSCOPY 04/02/2026 [id number] / / documented as of this encounter Visit Diagnoses Diagnosis Actinic skin damage- Primary Other dermatitis due to solar radiation Seborrheic keratoses Hx of squamous cell carcinoma Personal history of malignant neoplasm of other site Scar Scar condition and fibrosis of skin Actinic keratosis Skin neoplasm Neoplasm of unspecified nature of bone, soft tissue, and skin History of colonic polyps Personal history of colonic polyps documented in this encounter Care Teams Fitness Sales Consultant Relationship Specialty Start Date End Date Raphael Reed MD [address] [place] [address] PCP - General Internal Medicine 06/17/13 documented as of this encounter
--- OUTSIDE RECORDS SUMMARY | 2024-08-04 23:16 | External Medical Summary ---
Author Name Unknown Address Unknown Organization K01:[facility] [place] [address] [facility] [address] Laboratory Report Ordering Provider Test Date Status JENIFFER KHALIL 08/02/2024 13:14:02 Final Observation Date Value Abnormality Reference (Units ) Status Adenovirus DNA [Presence] in Nasopharynx by KENNY with non-probe detection 08/02/2024 13:14:02 Negative Negative Final Human coronavirus 229E RNA [Presence] in Nasopharynx by KENNY with non-probe detection 08/02/2024 13:14:02 Negative Negative Final Human coronavirus HKU1 RNA [Presence] in Nasopharynx by KENNY with non-probe detection 08/02/2024 13:14:02 Negative Negative Final Human coronavirus NL63 RNA [Presence] in Nasopharynx by KENNY with non-probe detection 08/02/2024 13:14:02 Negative Negative Final Human coronavirus OC43 RNA [Presence] in Nasopharynx by KENNY with non-probe detection 08/02/2024 13:14:02 Negative Negative Final SARS-CoV-2 (COVID-19) RNA [Presence] in Nasopharynx by KENNY with non-probe detection 08/02/2024 13:14:02 Negative Negative Final Human metapneumovirus RNA [Presence] in Nasopharynx by KENNY with non-probe detection 08/02/2024 13:14:02 Negative Negative Final Rhinovirus+Enterovirus RNA [Presence] in Nasopharynx by KENNY with non-probe detection 08/02/2024 13:14:02 Negative Negative Final Influenza virus A RNA [Presence] in Nasopharynx by KENNY with non-probe detection 08/02/2024 13:14:02 Negative Negative Final Influenza virus B RNA [Presence] in Nasopharynx by KENNY with non-probe detection 08/02/2024 13:14:02 Negative Negative Final Parainfluenza virus 1 RNA [Presence] in Nasopharynx by KENNY with non-probe detection 08/02/2024 13:14:02 Negative Negative Final Parainfluenza virus 2 RNA [Presence] in Nasopharynx by KENNY with non-probe detection 08/02/2024 13:14:02 Negative Negative Final Parainfluenza virus 3 RNA [Presence] in Nasopharynx by KENNY with non-probe detection 08/02/2024 13:14:02 Negative Negative Final Parainfluenza virus 4 RNA [Presence] in Nasopharynx by KENNY with non-probe detection 08/02/2024 13:14:02 Negative Negative Final Respiratory syncytial virus RNA [Presence] in Nasopharynx by KENNY with non-probe detection 08/02/2024 13:14:02 Negative Negative Final Bordetella pertussis.pertussis toxin promoter region [Presence] in Nasopharynx by KENNY with non-probe detection 08/02/2024 13:14:02 Negative Negative Final Chlamydophila pneumoniae DNA [Presence] in Nasopharynx by KENNY with non-probe detection 08/02/2024 13:14:02 Negative Negative Final Mycoplasma pneumoniae DNA [Presence] in Nasopharynx by KENNY with non-probe detection 08/02/2024 13:14:02 Negative Negative Final Bordetella parapertussis [id number] DNA [Presence] in Nasopharynx by KENNY with non-probe detection 08/02/2024 13:14:02 Negative Negative Final The primers that detect Rhin ovirus may cross react with some Enterorviruses. The validation of bronchial specimens, tracheal aspirates, and throats for this assay was developed and performance characteristics determined by [employer]. The validation of alternate specimen types has not been cleared or approved by the U.S. Food and Drug Administration (FDA). It has been determined that such clearance or approval is not necessary. Performing Location [facility] [place] [facility] [address] [facility] [address] [address]
--- OUTSIDE RECORDS SUMMARY | 2024-08-04 23:16 | External Medical Summary | Summary of Care ---
Author Name Unknown Organization [facility] Address [address] [place] [address] Phone [phone] Care Team Providers Care Batching Operator Name Role Phone Raphael Garcias MD Primary Care Provider + Reason for Visit * Reason Comments Cold Symptoms Encounter Details Date Type Department Care Team (Latest Contact Info) Description 08/02/2024 1:00 PM EST Convenient Care Visit [facility] [address] [place] [address] Aurora Bell PA-C [address] [place] [address] LRTI (lower respiratory tract infection)*; Acute cough Allergies No known active allergiesdocumented as of this encounter (statuses as of 08/02/2024) Medications Rsun-Wyjvc-VGN-Emory swellia-Vit D (GLUCOSAMINE CHONDROITIN COMPLX) TABS Take by mouth. 017 Active Multiple Vitamins-Minerals (MULTIVITAMIN MEN 50+) TABS Take 1 Tab by mouth daily. Active Acetaminophen 500 MG Oral Tablet (TYLENOL) Take 2 Tablets by mouth every 8 hours as needed (pain). 020 Active Vitamin D 25 MCG (1000 UT) Oral Tablet Take by mouth. Activ e Calcium Citrate-Vitamin D3 315-6.25 MG-MCG Oral Tablet Take by mouth 1 Tablet daily . Active Sertraline HCl 50 MG Oral Tablet (Zoloft)Indicatio ns:Moderate depressive disorder,KARIME (generalized anxiety disorder) TAKE 1 TABLET BY MOUTH EVERY DAY 90 Tablet 1 Active Fluorouracil 5 % External Cream (Efudex) Apply thin layer to scalp twice daily for 3 weeks 40 g Active Additional Information Patient not taking.Reported on 05/05/2024 Rosuvastatin Calcium 10 MG Oral Tablet (Crestor)Indicati ons:Mixed hyperlipidemia TAKE 1 TABLET BY MOUTH EVERY DAY IN THE MORNING 90 Tablet 3 Active Benzonatate 100 MG Oral Capsule (Tessalon Perles)Indication s:Acute cough Take 1 Capsule by mouth 3 times a day as needed for Cough. Do not cut, crush, or chew. 50 Capsule 1 Active predniSONE 20 MG Oral Tablet (Deltasone)Indica tions:LRTI (lower respiratory tract infection) Take 1 Tablet by mouth in the morning for 7 days. 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 Contacts: PI: Dr. Joyce Castrejon [facility]- Ofelia eLwis ([phone]) [facility]- Oliva Santacruz ([phone]) [facility]- Melissa Castellon ([phone]) Diagnosis changed due to Research Module. Go to Snapshot for study details. documented as of this encounter (statuses as of 08/02/2024) Immunizations Name Administration Dates Next Due COVID-19 mRNA, LNP-s, No Pre serve, 2-Dose Series (Moderna) 10/03/2020,08/30/2020 DTP Vaccine 01/09/2015 Pneumococcal Conjugate Vacc, 13 Valent (Prevnar) 11/03/2015 Pneumococcal Polysaccharide PPV23 (Pneumovax) RSV Vac., Recomb, Adjuvant, PF,0.5 Ml (Arexvy) 1 Season Influenza, Quad, PF, Adjuvanted, 65+ Yrs, IM (FLUAD) 04/23/2020 Seasonal Influenza Vac., MDV, IM, 0.5 mL (Fluzon e) 05/20/2014,05/20/2013 Seasonal Influenza, High Dos e, Trivalent, PF, IM (Fluzone HD) 05/03/2022,05/08/2019 Seasonal Influenza, PF, 6 M & above, IM , (FluLaval or Fluzone) 05/06/2018,05/04/2017 Seasonal Influenza, Quadrivalent Hd (Fluzone Hd) 05/09/2023,05/12/2021 Seasonal Influenza, Quadrivalent, No Preserve, I M 05/18/2016,06/04/2015 TDAP (age 10 and older)(Boostrix) 01/25/2023 TDAP, Age 7 and older, IM (Adacel) 10/18/2012 Varicella Zoster Vaccine (Adult) 05/20/2010 Zoster Vaccine Recombinant (Shingrix) 05/06/2019 ,12/26/2018 documented as of this encounter Social History Tobacco Use Types Packs/Day Years Used Date Smoking Tobacco: Former Cigarettes 1 20 0 08/06/1962 - 08/06/1982 Smokeless Tobacco: Never Tobacco Cessation:Counseling Given: Yes Alcohol Use Standard Drinks/Week Comments Yes 14 [...] money to get more. Never true 07/05/2022 Sex and Gender Information Value Date Recorded Sex Assigned at Male 06/24/2019 8:12 AM EST Legal Sex Male 9:38 AM EDT Gender Identity Male 06/24/2019 8:12 AM EST Sexual Orientation Straight 06/24/2019 8: 12 AM EST Occupation Industry Job Start Date Job End Date retired Not on file Not on file Not on file [facility] [employer] Not on file Not on file Not on file documented as of this encounter Last Filed Vital Signs Vital Sign Reading Time Taken Comments Blood Pressure 134/80 08/02/2024 12:44 PM EST Pulse 72 08/02/2024 12:44 PM EST Temperature 37.2 C (98.9 F) 08/02/2024 12:[address] Respiratory Rate 16 08/02/2024 12:44 PM EST Oxygen Saturation 98% 08/02/2024 12:44 PM EST Inhaled Oxygen Concentration - - Weight 83.5 kg (184 lb) 08/02/2024 12:44 PM EST Height - - Body Mass Index 27.17 05/05/2024 9:01 AM EDT documented in this encounter Patient Instructions * Patient Instructions* Aurora Bell PA-C - 08/02/2024 1:12 PM EST Discussed this is viral infection and will need to treat symptoms, let it run its course, Discussedacetaminophen motrin toggle Fluids, time Can take a few days but sometimes up to a couple weeks and mild cough can last even longer If symptoms worsen a lot, any SOB, wheezing, return, if severe, go to ER documented in this encounter Progress Notes * Aurora Bell PA-C - 08/02/2024 12:55 PM EST Subjective: Nursing Notes: Leda Fabby Howell, SONYA 08/02/24 1300 Signed Jorge Chaves is a 79 year old male who presents to clinic today for... Main Symptoms: uri symptoms for two weeks, coughing to point of pain, headache and body aches. Did home covid test, was negative. How long: two weeks Tried: tylenol, otc congestion med Pt accompanied by: spouse Sx are cold and severe cough symptoms x 2 weeks for a few days then resoivled then symptoms came back on [place] but this time cough is worsening to point of chest pain, negative covid test 2 weeksago and yesterday Chest congestion is the worse, greenish yellow and sxs x 3 weeks SOB at times, Hard to do PT now due to having had Lyme Dx: legs are weak Traveled recently for a week over [place], returned yesteday no sick contacts at home. Sig med hx/risk factors: multiple cardiac issues had flu shot this year. Review of Systems Constitutional: Positive for activity change, appetite change and fatigue. Negative for fever. HENT: Positive for congestion, postnasal drip, rhinorrhea and sore throat (raw). Negative for ear pain, sinus pressure, sinus pain and voice change. Eyes: Negative for discharge and redness. Respiratory: Positive for cough, chest tightness, shortness of breath and wheezing (occ). Increased respiration Cardiovascular: Negative for chest pain. Gastrointestinal: Positive for diarrhea (a little). Negative for abdominal pain, nausea and vomiting. Musculoskeletal: Positive for myalgias. Negative for arthralgias, neck pain and neck stiffness. Allergic/Immunologic: Negative for environmental allergies. Neurological: Positive for headaches. Negative for dizziness. Hematological: Negative for adenopathy. 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 Multiple Vitamins-Minerals (MULTIVITAMIN MEN 50+) TABS Take 1 Tab by mouth daily. Vitamin D 25 MCG (1000 UT) Oral Tablet Take by mouth. Calcium Citrate-Vitamin D3 315-6.25 MG-MCG Oral Tablet Take by mouth 1 Tablet daily . Sertraline HCl 50 MG Oral Tablet (Zoloft) TAKE 1 TABLET BY MOUTH EVERY DAY 90 Tablet 1 Rosuvastatin Calcium 10 MG Oral Tablet (Crestor) TAKE 1 TABLET BY MOUTH EVERY DAY IN THE MORNING 90Tablet 3 predniSONE 20 MG Oral Tablet (Deltasone) Take 1 Tablet by mouth in the morning for 7 days. 7 Tablet0 Benzonatate 100 MG Oral Capsule (Tessalon Perles) Take 1 Capsule by mouth 3 times a day as needed for Cough. Do not cut, crush, or chew. 50 Capsule 1 Acetaminophen 500 MG Oral Tablet (TYLENOL) Take 2 Tablets by mouth every 8 hours as needed (pain). Fluorouracil 5 % External Cream (Efudex) Apply thin layer to scalp twice daily for 3 weeks (Patientnot taking: Reported on 05/05/2024) 40 g 0 No current facility-administered medications for this visit. Past Medical History: Diagnosis Date Chronic sinus bradycardia 06/24/2019 History of squamous cell carcinoma of skin 06/24/2019 Hyperlipidemia LDL goal < 130 05/20/2013 Diet controlled Mild aortic stenosis 07/22/2021 Mild aortic valve regurgitation 09/01/2019 Mild mitral regurgitation 07/22/2021 S/P placement of cardiac pacemaker 12/16/2021 Past Surgical History: Procedure Laterality Date COLONOSCOPY, DIAGNOSTIC (RECTUM) 10/31/2023 biopsies show adenomatous polyps/recall 6 months/COLONOSCOPY FLEXIBLE PROXIMAL DIAGNOSTIC performedby Doe Candelaria MD at ENDOSCOPY [facility] COLONOSCOPY, DIAGNOSTIC (RECTUM) 05/05/2024 diverticulosis/hemorrhoids/biopsies show adenoamtous, hyperplastic polyps/recall 5 years/COLONOSCOPY FLEXIBLE PROXIMAL DIAGNOSTIC performed by Doe Candelaria MD at ENDOSCOPY [facility] EXTRACTION,ERUPTED TOOTH OR EXPOSED ROOT 02/2020 Dr. Engroff PACEMAKER INSERTION PER 12/06/2021 VASECTOMY 08/06/1982 Review of patient's allergies indicates: No Known Allergies Objective: BP 134/80 | Pulse 72 | Temp 37.2 C (98.9 F) | Resp 16 | Wt 83.5 kg (184 lb) | SpO2 98% | BMI 27.17 kg/m | BSA 2.02 m Physical Exam Constitutional: Appearance: Normal appearance. He is normal weight. HENT: Head: Normocephalic. Right Ear: Tympanic membrane, ear canal and external ear normal. Left Ear: Tympanic membrane, ear canal and external ear normal. Nose: Rhinorrhea present. No congestion. Mouth/Throat: Pharynx: No oropharyngeal exudate or posterior oropharyngeal erythema. Eyes: Extraocular Movements: Extraocular movements intact. Conjunctiva/sclera: Conjunctivae normal. Cardiovascular: Rate and Rhythm: Normal rate and regular rhythm. Heart sounds: Normal heart sounds. Pulmonary: Effort: Pulmonary effort is normal. Breath sounds: Normal breath sounds. No wheezing or rhonchi. Comments: Cough noted, no wheezing or rhonchi noted today Musculoskeletal: General: Normal range of motion. Cervical back: Normal range of motion. No rigidity or tenderness. No muscular tenderness. Lymphadenopathy: Cervical: Cervical adenopathy present. Skin: Findings: No rash. Neurological: Mental Status: He is alert and oriented to person, place, and time. Psychiatric: Mood and Affect: Mood normal. Thought Content: Thought content normal. Judgment: Judgment normal. ASSESSMENT/PLAN: LRTI (lower respiratory tract infection) (Primary) - RESPIRATORY PATHOGEN PANEL, PCR - predniSONE 20 MG Oral Tablet (Deltasone); Take 1 Tablet by mouth in the morning for 7 days. - XR CHEST 2 VIEWS Acute cough - RESPIRATORY PATHOGEN PANEL, PCR - Benzonatate 100 MG Oral Capsule (Tessalon Perles); Take 1 Capsule by mouth 3 times a day as needed for Cough. Do not cut, crush, or chew. Patient Instructions Discussed this is viral infection and will need to treat symptoms, let it run its course, Discussedacetaminophen motrin toggle Fluids, time Can take a few days but sometimes up to a couple weeks and mild cough can last even longer If symptoms worsen a lot, any SOB, wheezing, return, if severe, go to ER Return instruction reviewed with pt in detail. Reasons to report to the ED were also reviewed. Voiced understanding Advised to follow up if no improvement in 3-5days. Aurora Bell PA-C documented in this encounter Nursing Notes * Fabby Tompkins LPN - 08/02/2024 12:43 PM EST Jorge Chaves is a 79 year old male who presents to clinic today for... Main Symptoms: uri symptoms for two weeks, coughing to point of pain, headache and body aches. Did home covid test, was negative. How long: two weeks Tried: tylenol, otc congestion med Pt accompanied by: spouse documented in this encounter Miscellaneous Notes * Addendum Note - Aurora Bell PA-C - 08/02/2024 1:55 PM ESTAddended by: AURORA BELL on: 08/02/2024 01:55 PM Modules accepted: Orders documented in this encounter Plan of Treatment Upcoming Encounters Date Type Department Care Team (Late st Contact Info) Description 08/27/2024 2:40 PM EST Office Visit General Internal Medicine [facility] [address] [place] [address] Raphael Garcias MD [address] [place] [address] Pending Results Name Type Priority Associated Diagnoses Date /Time RESPIRATORY PATHOGEN PANEL, PCR Lab Routine Acute cough LRTI (lower respiratory tract infection) 08/02/2024 1:14 PM EST Scheduled Procedures Name Priority Associated Diagnoses Date/Ti me COLONOSCOPY FLEXIBLE PROXIMA L DIAGNOSTIC Recall History of colonic polyps Health Maintenance Due Date Last Done Comments Adult Wellness Visit 04/12/2018 04/12/2017 Depression Monitoring 07/11/2024 07/11/2023 Colonoscopy 05/05/2029 05/05/2024, 04/08, 10/31/2023, Additional history exists DTap/Tdap Vaccines (4 - Td or Tdap) 01/25/2033 01/25/2023, 01/09/2015, 10/18/2012 Pneumococcal Vaccine: 50+ Years Completed 11/03/2015, 10/18/2012 Fecal Occult Blood Test Discontinued 03/01/2017, 07/08 Zoster Vaccines Completed 05/06/2019, 12/05, 05/20/2010 Cologuard Discontinued 10/01/2020, 09/07, 09/28/2020 COVID-19 Vaccine Completed 04/02/2024, , 10/03/2020, Additional history exists Influenza Vaccine (FLU shot) Completed 04/02/2024, 05/22/2023, 05/09/2023, Additional history exists FOBT ANNUALLY,AGES 18-90 Discontinued 024, 05/05/2024, 10/31/2023, Additional history exists RETIRED - COLONOSCOPY-ANNUAL AGES 18-100 Discontinued 05/05/2024, 05/05/2024, 10/31/2023, Additional history exists HPV (Gardasil) Vaccine Aged Out No lo nger eligible based on patient's age to complete this topic Hepatitis B Vaccine Aged Out No longe r eligible based on patient's age to complete this topic MENINGOCOCCAL (MENACTRA/MENVEO) Aged Out No longer eligible based on patient's age to complete this topic documented as of this encounter Medical Devices Implanted Type Area Weather Anchor Device Identifier Shelf Expiration Date Model / Serial / Lot Hemostatic Clip Res 235cm - [id number] Implanted:Qty: 2 on 10/31/2023 by Doe Candelaria MD at ENDOSCOPY [facility] : ENDOSCOPY 02/15/2026 [id number] / / Hemostatic Clip Res 235cm - [id number] Implanted:Qty: 4 on 10/31/2023 by Doe Candelaria MD at [facility] : ENDOSCOPY 04/02/2026 [id number] / / documented as of this encounter Visit Diagnoses Diagnosis LRTI (lower respiratory tract infection)- Primary Other diseases of respiratory system, not elsewhere classified Acute cough documented in this encounter Additional Health Concerns Infection Onset Date Last Indicated Resolved Time Respiratory Rule-Out 08/02/2024 08/02/2024 documented as of this encounter Care Teams Batching Operator Relationship Specialty Start Date End Date Raphael Garcias MD [address] [place] [address] PCP - General Internal Medicine 06/17/13 documented as of this encounter"
--- OUTSIDE RECORDS SUMMARY | 2024-08-04 23:16 | External Medical Summary | Summary of Care ---
Author Name Unknown Organization [facility] Address [address] [place] [address] Phone [phone] Care Team Providers Care Consulting Database Administrator Name Role Phone Raphael Garcias MD Primary Care Provider + Reason for Visit * Reason Comments Cold Symptoms Encounter Details Date Type Department Care Team (Latest Contact Info) Description 08/02/2024 1:00 PM EST Convenient Care Visit [facility] [address] [place] [address] Aurora Bell PA-C [address] [place] [address] LRTI (lower respiratory tract infection)*; Acute cough Allergies No known active allergiesdocumented as of this encounter (statuses as of 08/02/2024) Medications Ousl-Kagcx-COA-Emory swellia-Vit D (GLUCOSAMINE CHONDROITIN COMPLX) TABS Take [...] failure rates. Contacts: PI: Dr. Joyce Castrejon [facility]- Ofelia Lewis ([phone]) [facility]- Oliva Santacruz ([phone]) [facility]- Melissa Castellon ([phone]) Diagnosis changed due to Research Module. Go [...] file Not on file Not on file [facility] [employer] Not on file Not on file [...] then resoivled then symptoms came back on [place] but this time cough is worsening to point of chest pain, negative covid test 2 weeksago and yesterday Chest congestion is the worse, greenish yellow and sxs x 3 weeks SOB at times, Hard to do PT now due to having had Lyme Dx: legs are weak Traveled recently for a week over [place], returned yesteday no sick contacts at home. [...] Current Outpatient Medications Medication Sig Dispense Refill Xzxf-Ygdsl-WFS-Boswellia-Vit D (GLUCOSAMINE CHONDROITIN COMPLX) TABS Take by [...] DIAGNOSTIC performedby Doe Candelaria MD at ENDOSCOPY [facility] COLONOSCOPY, DIAGNOSTIC (RECTUM) 05/05/2024 diverticulosis/hemorrhoids/biopsies show adenoamtous, hyperplastic polyps/recall 5 years/COLONOSCOPY FLEXIBLE PROXIMAL DIAGNOSTIC performed by Doe Candelaria MD at ENDOSCOPY [facility] EXTRACTION,ERUPTED TOOTH OR EXPOSED ROOT 02/2020 [...] PM EST Office Visit General Internal Medicine [facility] [address] [place] [address] Raphael Garcias MD [address] [facility] [place] [address] Pending Results Name Type Priority Associated Diagnoses [...] this encounter Medical Devices Implanted Type Area Dinkey Locomotive Operator Device Identifier Shelf Expiration Date Model / Serial / Lot Hemostatic Clip Res 235cm - [id number] Implanted:Qty: 2 on 10/31/2023 by Doe Candelaria MD at [facility]COPY [facility] : ENDOSCOPY 02/15/2026 [id number] / / Hemostatic Clip Res 235cm - [id number] Implanted:Qty: 4 on 10/31/2023 by Doe Candelaria MD at [facility]COPY [facility] : ENDOSCOPY 04/02/2026 [id number] / / documented as of this encounter Visit Diagnoses Diagnosis LRTI (lower respiratory tract infection)- Primary Other diseases of respiratory system, not elsewhere classified Acute cough documented in this encounter Additional Health Concerns Infection Onset Date Last Indicated Resolved Time Respiratory Rule-Out 08/02/2024 08/02/2024 documented as of this encounter Care Teams Consulting Database Administrator Relationship Specialty Start Date End Date Raphael Garcias MD [address] [facility] [place] [address] PCP - General Internal Medicine 06/17/13 documented as of this encounter"
--- OUTSIDE RECORDS SUMMARY | 2024-08-04 23:16 | External Medical Summary ---
Author Name Unknown Address Unknown Organization [id number] [address] [place] [address] Laboratory Report Ordering Provider Test Date Status BRIANNA ARTEAGA 06/25/2024 07:25:55 Final Observation Date Value Abnormality Reference (Units ) Status WBC, Total 06/25/2024 07:25:55 5.19 4.00-10.8 0 (K/uL) Final RBC 06/25/2024 07:25:55 4.84 4.50-5.25 (M/uL) Final Hemoglobin 06/25/2024 07:25:55 14.5 14.0-16.8 (g/dL) Final HCT 06/25/2024 07:25:55 42.9 40.0-48.4 (%) Final MCV 06/25/2024 07:25:55 88.6 82.0-99.5 (fL) Final MCH 06/25/2024 07:25:55 30.0 27.0-34.0 (pg) Final MCHC 06/25/2024 07:25:55 33.8 32.0-36.0 (g/dL) Final RDW 06/25/2024 07:25:55 14.8 11.5-15.5 (%) Final Platelets 06/25/2024 07:25:55 215 140-400 (K /uL) Final MPV 06/25/2024 07:25:55 11.5 6.6-11.1 ( fL) Final Performing Location [facility] [address] [place] [id number]
--- OUTSIDE RECORDS SUMMARY | 2024-08-04 23:16 | External Medical Summary ---
Author Name Unknown Address Unknown Organization [facility] [address] [place] [address] Laboratory Report Ordering Provider Test Date Status BRIANNA ARTEAGA 06/25/2024 07:25:55 Final Observation Date Value Abnormality Reference (Units ) Status SYNC LEUKOCYTES IN BLOOD BY AUTOMATED COUNT 06/25/2024 07:25:55 5.19 4.00-10.80 (K/uL) Final Segs 06/25/2024 07:25:55 49.7 40.0-75.0 (%) Final Lymphs % 06/25/2024 07:25:55 31.6 18.0-42.0 (%) Final Monos 06/25/2024 07:25:55 11.9 Above high normal 1.0-11.0 (%) Final Eosinophils 06/25/2024 07:25:55 6.0 0.0-6.0 (%) Final Basos 06/25/2024 07:25:55 0.8 0.0-2.0 (%) Final Absolute Segs 06/25/2024 07:25:55 2.58 1.80-7.70 (K/uL) Final Lymphs, absolute 06/25/2024 07:25:55 1.64 1.00-4.80 (K/ul) Final Monos, Abs 06/25/2024 07:25:55 0.62 0.00-1.10 (K/uL) Final Eos, Abs 06/25/2024 07:25:55 0.31 0.00-0.70 (K/uL) Final Basos, Abs 06/25/2024 07:25:55 0.04 0.00-0.20 (K/uL) Final Performing Location [facility] [address] [place] [address]
--- OUTSIDE RECORDS SUMMARY | 2024-08-04 23:16 | External Medical Summary | Summary of Care ---
Author Name Unknown Organization [facility] Address [address] [place] [address] Phone [phone] Care Team Providers Care Mint Machine Operator Name Role Phone Raphael Garcias MD [...] of squamous cell carcinoma of skin Raphael Garcias MD [address] [facility] [address] [facility] [place] [address] Referral ID Status Reason Start Date Expiration Date Visits Requested Visits Authorized [id number] Authorized Specialty Services Required 01/16/[phone] Encounter Details Date Type Department Care Team (Late st Contact Info) Description 04/28/2024 1:45 PM EDT Office Visit Dermatology State Nicki Ortiz [address] [place] [address] Raphael White MD [address] [facility] [place] [address] Actinic skin damage*; Seborrheic keratoses; Hx of squamous cell carcinoma; Scar; Actinic keratosis; Skin neoplasm Allergies No known active allergiesdocumented as of this encounter (statuses as of 04/28/2024) Medications Medication Sig Dispensed Refills Start Date End Date Status Khvj-Rjrob-FAS-Boswelli a-Vit D (GLUCOSAMINE CHONDROITIN COMPLX) TABS Take [...] rates. Contacts: PI: Dr. Joyce Bliss-Jacqui Castrejon [facility]- Ofelia Lewis ([phone]) [facility]- Oliva Santacruz ([phone]) [facility]- Melissa Castellon ([phone]) Diagnosis changed due to Research Module. Go [...] of this encounter Progress Notes * Raphael White MD - 04/28/2024 1:46 PM EDT SUBJECTIVE: [...] No spots of concern today Originally from [place]. Retired from [employer]. 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 Raphael White MD REF: RAPHAEL GARCIAS Dr [place], [place] [address] (office) [phone] (fax) PCP: RAPHAEL GARCIAS Dr [place] [address] [phone] documented in this encounter Nursing Notes * Nilda Goodrich LPN - 04/28/2024 1:39 PM EDT Chief Complaint Patient presents with Follow Up Patient here for a skin check, hx of NMSC and AK. He is not aware of any new or changing skin lesions. documented in this encounter Miscellaneous Notes * Addendum Note - Raphael White MD - 04/28/2024 3:39 PM EDTAddended by: RAPHAEL WHITE on: 04/28/2024 03:39 PM Modules accepted: Orders documented in this encounter Plan of Treatment Upcoming Encounters Date Type Department Care Team (Latest Contact Info) Description 05/05/2024 9:30 AM EDT Hospital Encounter ENDO [facility], Endoscopy Room [facility] [address] [place] [phone] Doe Candelaria MD [address] [place] [address] 05/05/2024 9:30 AM EDT - 05/05/2024 10:00 AM EDT Surgery ENDO [facility], Endoscopy Room [facility] [address] [place] [id number] Doe Candelaria MD [address] [place] [address] COLONOSCOPY FLEXIBLE PROXIMAL DIAGNOSTIC 08/27/2024 2:40 PM EST Office Visit General Internal Medicine State Nicki Ortiz [address] [place] [address] Raphael Garcias MD [address] [facility] [place] [address] Pending Results Name Type Priority Associated Diagnoses Date /Time SURGICAL PATHOLOGY Pathology Routine Skin neoplasm 04/28/2024 3:38 PM EDT Scheduled Procedures Name Priority Associated Diagnoses Date/Ti me COLONOSCOPY FLEXIBLE PROXIMAL DIAGNOSTIC History of colonic polyps 05/05/2024 9:30 AM EDT Health Maintenance Due Date Last Done Comments Adult Wellness Visit 04/12/2018 04/12/2017 COVID-19 Vaccine (4 - season) 2024 09/26/2023, 10/03/2020, 08/30/2020 Influenza Vaccine [...] this encounter Medical Devices Implanted Type Area Barge Hand Device Identifier Shelf Expiration Date Model / Serial / Lot Hemostatic Clip Res 235cm - [id number] Implanted:Qty: 2 on 10/31/2023 by Doe Candelaria MD at ENDOSCOPY [facility] : ENDOSCOPY 02/15/2026 [id number] / / Hemostatic Clip Res 235cm - [id number] Implanted:Qty: 4 on 10/31/2023 by Doe Candelaria MD at ENDOSCOPY [facility] : ENDOSCOPY 04/02/2026 [id number] / / documented as of this encounter [...] polyps documented in this encounter Care Teams Mint Machine Operator Relationship Specialty Start Date End Date Raphael Garcias MD 200 [place] [address] PCP - General Internal Medicine 06/17/13 documented as of this encounter
--- OUTSIDE RECORDS SUMMARY | 2024-08-04 23:16 | External Medical Summary | Summary of Care ---
Author Name Unknown Organization [facility] Address [address] [place] [address] Phone [phone] Care Team Providers Care Agency Owner Name Role Phone Raphael Garcias MD Primary Care Provider + Reason for Visit * Auth/Cert Specialty Diagnoses / Procedures Referred By Michell chiang Referred To Contact Diagnoses History of colonic polyps History of colonic polyps [Z86.010] Procedures COLONOSCOPY, DIAGNOSTIC (RECTUM) COLONOSCOPY FLEXIBLE PROXIMAL DIAGNOSTIC Doe Candelaria MD [address] [place] [address] End[facility] [address] [place] [phone] Referral ID Status Reason Start Date Expiration Date Visits Re quested Visits Authorized [id number] Encounter Details Date Type Department Care Team (Latest Contact Info) Description 05/05/2024 8:46 AM EDT - 05/05/2024 11:10 AM EDT Hospital Encounter ENDO [facility], Endoscopy Room [facility] [address] [place] [phone] Doe Candelaria MD [address] [place] [address] Colonoscopy Discharge Disposition: Home - Self Care Allergies No known active allergiesdocumented as of this encounter (statuses as of 05/05/2024) Medications Medication Sig Dispensed Refills Start Date End Date Status Ntws-Ofdnz-XFK-Boswel kerri-Vit D (GLUCOSAMINE CHONDROITIN COMPLX) TABS Take by mouth. 05/04/2017 Active Multiple Vitamins-Minerals (MULTIVITAMIN MEN 50+) TABS Take 1 Tab by mouth daily. Active Acetaminophen 500 MG Oral Tablet (TYLENOL) Take 2 Tablets by mouth every 8 hours as needed (pain). 06/29/2020 Active Vitamin D 25 MCG (1000 UT) Oral Tablet Take by mouth. Active Calcium Citrate-Vitamin D3 315-6.25 MG-MCG Oral Tablet Take by mouth 1 Tablet daily . Active Rosuvastatin Calcium 10 MG Oral Tablet (Crestor)Indications: Mixed hyperlipidemia TAKE 1 TABLET BY MOUTH EVERY DAY IN THE MORNING 90 Tablet 1 12/25/2023 Active Sertraline HCl 50 MG Oral Tablet (Zoloft)Indications:M oderate depressive disorder,KARIME (generalized anxiety disorder) TAKE 1 TABLET BY MOUTH EVERY DAY 90 Tablet 1 02/23/2024 Active Fluorouracil 5 % External Cream (Efudex) Apply thin layer to scalp twice daily for 3 weeks 40 g 04/28/2024 Active Additional Information Patient not taking.Reported on 05/05/2024 documented as of this encounter (statuses as of 05/05/2024) Active Problems Problem Noted Date Diagnosed Date [...] as of this encounter (statuses as of 05/05/2024) Resolved Problems Problem Noted Date Diagnosed Date [...] rates. Contacts: PI: Dr. Joyce Bliss-Jacqui Castrejon [facility]- Ofelia Lewis ([phone]) [facility]- Oliva Santacruz ([phone]) [facility]- Melissa Castellon ([phone]) Diagnosis changed due to Research Module. Go to Snapshot for study details. documented as of this encounter (statuses as of 05/05/2024) Immunizations Name Administration Dates Next Due COVID-19 [...] Sign Reading Time Taken Comments Blood Pressure 134/86 05/05/2024 10:42 AM EDT Pulse 62 05/05/2024 10:42 AM EDT Temperature 36.2 C (97.2 F) 05/05/2024 10:42 AM E DT Respiratory Rate 18 05/05/2024 10:42 AM EDT Oxygen Saturation 100% 05/05/2024 10:42 AM EDT Inhaled Oxygen Concentration - - Weight 78 kg (172 lb) 05/05/2024 9:01 AM EDT Height 175.3 cm (5' 9") 05/05/2024 9:01 AM EDT Body Mass Index 25.4 05/05/2024 9:01 AM EDT documented in this encounter H&P Notes * Doe Candelaria MD - 05/05/2024 10:02 AM EDT Endoscopy Pre-Procedure Assessment Name: Jorge Chaves Date: 05/05/2024 Time: 10:02 AM Procedure: Colonoscopy; with Indication(s) of colon polyp surveillance Endoscopy Pre-Procedure Assessment: Prior to the procedure, the patient was identified. The patient's history, medications and allergies were reviewed as per the Anesthesia Assessment. The patient is competent. The risks and benefits of the proposed procedure and the planned sedation were discussed with the patient. All questions were answered and informed consent for the procedure was obtained. This patient has undergone a preprocedural evaluation. A determination has been made to proceed with the planned procedure under [facility] procedural guidelines and the [facility] Non-Emergent, Elective Medical Services and Treatment Recommendations (published on 11-11-19). The community and hospital prevalence of COVID-19 has been discussed as well as this patient's specific risks associated with SARS-CoV-19 infection. Based upon the clinical acuity and patient-specific care considerations, this procedure is deemed a Tier II - Intermediate acuity treatment or service with either progression or the threat of progressive disease related to the delay in treatment. Not providing the service has the potential for increasing morbidity or mortality. BP 153/94 | Pulse 66 | Temp 35.9 C (96.6 F) (Tympanic) | Resp 17 | Ht 1.753 m (5' 9") | Wt 78 kg (172 lb) | SpO2 99% | BMI 25.40 kg/m | BSA 1.95 m Prior to Admission medications Medication Sig Last Dose Discont. Sertraline HCl 50 MG Oral Tablet (Zoloft) TAKE 1 TABLET BY MOUTH EVERY DAY 05/04/2024 Rosuvastatin Calcium 10 MG Oral Tablet (Crestor) TAKE 1 TABLET BY MOUTH EVERY DAY IN THE MORNING 05/04/2024 Acetaminophen 500 MG Oral Tablet (TYLENOL) Take 2 Tablets by mouth every 8 hours as needed (pain). Past Week Multiple Vitamins-Minerals (MULTIVITAMIN MEN 50+) TABS Take 1 Tab by mouth daily. 05/03/2024 Sxmw-Tccls-GTI-Boswellia-Vit D (GLUCOSAMINE CHONDROITIN COMPLX) TABS Take by mouth. 05/03/2024 Fluorouracil 5 % External Cream (Efudex) Apply thin layer to scalp twice daily for 3 weeks Patient not taking: Reported on 05/05/2024 Not Taking Calcium Citrate-Vitamin D3 315-6.25 MG-MCG Oral Tablet Take by mouth 1 Tablet daily . Over 30 Days Vitamin D 25 MCG (1000 UT) Oral Tablet Take by mouth. Patient not taking: Reported on 04/29/2024 Not Taking Review of patient's allergies indicates: No Known Allergies Physical Exam: Mental Status Examination: alert and oriented. General: nad, calm Airway Examination: normal oropharyngeal airway and neck mobility. CV: no JVD Respiratory Examination: symmetrical excursion Abd:soft/ntd ASA Grade: III - A patient with severe systemic disease. After reviewing the risks and benefits, the patient was deemed in satisfactory condition to undergothe procedure. The anesthesia plan was to use general anesthesia. Doe Candelaria MD 05/05/2024 documented in this encounter Procedure Notes * Raphael Garcias MD - 05/05/2024 9:47 AM EDTAssociated Order(s): COLONOSCOPY [facility] Patient Name: Jorge Chaves Procedure Date: 05/05/2024 9:47 AM Date of : 1945 Admit Type: Outpatient Note Status: Finalized Date of : 1945 Admit Type: Outpatient Age: 79 Room: [facility] 2 Gender: Male Note Status: Finalized Procedure: Colonoscopy Indications: High risk colon cancer surveillance: Personal history of adenoma (10 mm or greater in size) Providers: Doe Candelaria MD (Doctor) Referring MD: Raphael Garcias MD (Referring MD) Medicines: Propofol per Anesthesia Complications: No immediate complications. Estimated blood loss: None. Procedure: Pre-Anesthesia Assessment: - - Prior to the procedure, a History and Physical was performed, patient medications, allergies and sensitivities were reviewed. The patient's tolerance of previous anesthesia was reviewed. See [facility] for further details. - The risks, benefits, and alternatives of the procedure including the sedation options and risks were discussed with the patient. All questions were answered and informed consent was obtained. - Patient identification and proposed procedure were verified prior to the procedure by the physician and the nurse. The procedure was verified in the procedure room. - See [facility] for documentation of the pre-procedure assessment including ASA status. - After I obtained informed consent, the scope was carefully and meticulously passed under direct vision only when the lumen was definitively identified. CO2 insufflation was utilized throughout the entire procedure exclusively. After I obtained informed consent, the scope was passed under direct vision. All instruments were visually inspected immediately before and after removal from the patient to ensure they are fully intact. Throughout the procedure, the patient's blood pressure, pulse, and oxygen saturations were monitored continuously. The colonoscopy was performed without difficulty. The patient tolerated the procedure well. The quality of the bowel preparation was good. The [id number] Colonoscope ([id number]) was introduced through the anus and advanced to the cecum, identified by appendiceal orifice and ileocecal valve. Findings & Specimens: The terminal ileum appeared normal. A 1 mm polyp was found in the ascending colon. The polyp was sessile. The polyp was removed with a jumbo cold forceps. Resection and retrieval were complete. The pathology specimen was placed into Bottle Number 1. A 3 mm polyp was found in the rectum. The polyp was sessile. The polyp was removed with a cold snare. Resection and retrieval were complete. The pathology specimen was placed into Bottle Number 2. Multiple small-mouthed diverticula were found in the sigmoid colon. Internal hemorrhoids were found during retroflexion. The exam was otherwise without abnormality on direct and retroflexion views. Impression: - The examined portion of the ileum was normal. - One 1 mm polyp in the ascending colon, removed with a jumbo cold forceps. Resected and retrieved. - One 3 mm polyp in the rectum, removed with a cold snare. Resected and retrieved. - Diverticulosis in the sigmoid colon. - Internal hemorrhoids. - The examination was otherwise normal on direct and retroflexion views. Recommendation: - Discharge patient to home (with escort). - Repeat colonoscopy for surveillance based on pathology results. - Return to referring physician as previously scheduled. - Patient has a contact number available for emergencies. The signs and symptoms of potential delayed complications were discussed with the patient. Return to normal activities tomorrow. Written discharge instructions were provided to the patient. Doe Candelaria MD 05/05/2024 10:24:22 AM This report has been signed electronically. documented in this encounter Nursing Notes * Deb Andrea RN - 05/05/2024 11:09 AM EDT Patient is alert, pain free, passing flatus and tolerating po fluids prior to discharge. Patient has been visited by Dr. Candelaria. Patient has received and demonstrates understanding of discharge instructions. Patient is transported via walking to private auto accompanied by endo staff. * Deb Andrea RN - 05/05/2024 10:27 AM EDT Patient drowsy but easily awakens tolerated anesthesia and procedure well. * Jeremy Pemberton RN - 05/05/2024 10:25 AM EDT See anesthesia record for medication administered during procedure. Jeremy Pemberton RN Specimen(s) and location(s) verified with physician post procedure 10:25 AM Jeremy Pemberton RN Pt jose elias colonoscopy w/ polypectomies well. No Abd pressure applied to assist w/ advancement of the scope. Abd soft post proc. To recovery lying on L side. Pre cleaning of scope at the bedside started by field support technician. * Nina Snachez RN - 05/05/2024 8:54 AM EDT The following pt discharge instructions reviewed with pt prior to prodedure: No driving today. No alcohol today. No signing of legal documents. Rest as much as possible today and can return to normal activities tomorrow. No operating any heavy equipment today. Diet as tolerated. Pt verbalized understanding. documented in this encounter Plan of Treatment Upcoming Encounters Date Type Department Care Team (Late st Contact Info) Description 08/27/2024 2:40 PM EST Office [facility] [address] [facility] [place] [place] [address] Raphael Garcias MD [address] [facility] [address] Pending Results Name Type Priority Associated Diagnoses Date /Time SURGICAL PATHOLOGY Pathology Routine History of colonic polyps 05/05/2024 10:25 AM EDT Scheduled Orders Name Type Priority Associated Diagnoses Orde r Schedule SURGICAL PATHOLOGY Pathology Routine History of colonic polyps Release Upon Ordering for 1 Occurrences starting 05/05/2024, 1 completed Scheduled Procedures Name Priority Associated Diagnoses Date/Ti me COLONOSCOPY FLEXIBLE PROXIMAL DIAGNOSTIC History of colonic polyps 05/05/2024 10:01 AM EDT Health Maintenance Due Date Last [...] Cologuard Discontinued 10/01/2020, 09/07, 09/28/2020 Colonoscopy Discontinued 05/05/2024, 10/05, 10/31/2023 Colorectal Cancer Screening Discontinued FOBT ANNUALLY,AGES 18-90 Discontinued 024, 10/31/2023, 10/31/2023, Additional history exists RETIRED - COLONOSCOPY-ANNUAL AGES 18-100 Discontinued 05/05/2024, 10/31/2023, 10/31/2023 HPV (Gardasil) Vaccine Aged Out No lo nger eligible based on patient's age to complete this topic Hepatitis B Vaccine Aged Out No longe r eligible based on patient's age to complete this topic MENINGOCOCCAL (MENACTRA/MENVEO) Aged Out No longer eligible based on patient's age to complete this topic Sigmoidoscopy Discontinued documented as of this encounter Medical Devices Implanted Type Area Head Of Quality Device Identifier Shelf Expiration Date Model / Serial / Lot Hemostatic Clip Res 235cm - [id number] Implanted:Qty: 2 on 10/31/2023 by Doe Candelaria MD at ENDOSCOPY [facility] : ENDOSCOPY 02/15/2026 [id number] / / Hemostatic Clip Res 235cm - [id number] Implanted:Qty: 4 on 10/31/2023 by Doe Candelaria MD at ENDOSCOPY [facility] : ENDOSCOPY 04/02/2026 [id number] / / documented as of this encounter Procedures Procedure Name Priority Date/Time Associated Diagnosis Comments COLONOSCOPY 05/05/2024 9:47 AM EDT documented in this encounter Results * COLONOSCOPY (05/05/2024 9:47 AM EDT) 05/05/2024 9:47 AM EDT Narrative Procedure Note Raphael Garcias MD - 05/05/2024 9:47 AM EDT [facility] Patient Name: Jorge Chaves Procedure Date: 05/05/2024 9:47 AM Date of : 1945 Admit Type: Outpatient Note Status:Finalized Date of : 1945 Admit Type: Outpatient Age: 79 Room: [facility] 2 Gender: Male Note Status: Finalized Procedure: Colonoscopy Indications: High risk colon cancer surveillance: Personalhistory of adenoma (10 mm or greater in size) Providers: Doe Candelaria MD (Doctor) Referring MD: Raphael Garcias MD (Referring MD) Medicines: Propofol per Anesthesia Complications: No immediate complications. Estimated blood loss:None. Procedure: Pre-Anesthesia Assessment: - - Prior to the procedure, a History and Physicalwas performed, patient medications, allergies and sensitivities were reviewed. Thepatient's tolerance of previous anesthesia was reviewed. See [facility] for furtherdetails. - The risks, benefits, and alternatives of theprocedure including the sedation options and risks were discussed with the patient.All questions were answered and informed consent was obtained. - Patient identification and proposed procedurewere verified prior to the procedure by the physician and the nurse. The procedure wasverified in the procedure room. - See [facility] for documentation of the pre-procedureassessment including ASA status. - After I obtained informed consent, the scope wascarefully and meticulously passed under direct vision only when the lumen wasdefinitively identified. CO2 insufflation was utilized throughout the entire procedureexclusively. After I obtained informed consent, the scope waspassed under direct vision. All instruments were visually inspected immediatelybefore and after removal from the patient to ensure they are fully intact. Throughout the procedure, the patient's bloodpressure, pulse, and oxygen saturations were monitored continuously. The colonoscopy wasperformed without difficulty. The patient tolerated the procedure well. The qualityof the bowel preparation was good. The [id number] Colonoscope ([id number]) was introducedthrough the anus and advanced to the cecum, identified by appendiceal orifice andileocecal valve. Findings & Specimens: The terminal ileum appeared normal. A 1 mm polyp was found in the ascending colon. The polyp was sessile.The polyp was removed with a jumbo cold forceps. Resection and retrieval were complete. Thepathology specimen was placed into Bottle Number 1. A 3 mm polyp was found in the rectum. The polyp was sessile. Thepolyp was removed with a cold snare. Resection and retrieval were complete. The pathology specimen wasplaced into Bottle Number 2. Multiple small-mouthed diverticula were found in the sigmoid colon. Internal hemorrhoids were found during retroflexion. The exam was otherwise without abnormality on direct and retroflexionviews. Impression: - The examined portion of the ileum was normal. - One 1 mm polyp in the ascending colon, removedwith a jumbo cold forceps. Resected and retrieved. - One 3 mm polyp in the rectum, removed with a coldsnare. Resected and retrieved. - Diverticulosis in the sigmoid colon. - Internal hemorrhoids. - The examination was otherwise normal on directand retroflexion views. Recommendation: - Discharge patient to home (with escort). - Repeat colonoscopy for surveillance based onpathology results. - Return to referring physician as previouslyscheduled. - Patient has a contact number available foremergencies. The signs and symptoms of potential delayed complications were discussed withthe patient. Return to normal activities tomorrow. Written discharge instructionswere provided to the patient. Doe Candelaria MD 05/05/2024 10:24:22 AM This report has been signed electronically. Raphael Garcias MD [facility] documented in this encounter Visit Diagnoses Diagnosis History of colonic polyps Personal history of colonic polyps documented in this encounter Administered Medications Inactive Administered Medications - up to 3 most recent administrations Medication Order MAR Action Action Date Dose Rate Site isolyte-S pH 7.4 infusion Intravenous, at 100 mL/hr, Plasma-LYTE 148, isolyte-S, and isolyte-S pH 7.4 are considered equivalent - including for MAR barcode scanning., PRN, Starting on Sun05/05/24 at 0852, Until Sun05/05/24 at 1151, Pre-Op Restarted 05/05/2024 10:25 AM EDT Continue from Pre-Op 05/05/2024 9:58 AM EDT 100 mL/hr New Bag 05/05/2024 9:11 AM EDT 100 mL/hr documented in this encounter Active and Recently Administered Medications Times are shown in EDT. PRN Medication Order 05/03/2024 05/04/2024 05/05/2024 isolyte-S pH 7.4 infusion Intravenous, at 100 mL/hr, Plasma-LYTE 148, isolyte-S, and isolyte-S pH 7.4 are considered equivalent - including for MAR barcode scanning., PRN, Starting on Sun05/05/24 at 0852, Until Sun05/05/24 at 1151, Pre-Op 0911 (New Bag - Prov ider: Nina Sanchez RN)0958 (Continue from Pre-Op - Provider: Zhanna Ruby CRNA)1024 (Paused - Provider: Zhanna Ruby CRNA - Comment: Switch to gravity)1025 (Restarted - Provider: Zhanna Ruby CRNA) documented in this encounter Care Teams Agency Owner Relationship Specialty Start Date End Date Raphael Garcias MD [address] [facility] [place] [address] PCP - General Internal Medicine 06/17/13 documented as of this encounter
--- OUTSIDE RECORDS SUMMARY | 2024-08-04 23:16 | External Medical Summary | Summary of Care ---
Author Name Unknown Organization [facility] Address [address] [place] [address] Phone [phone] Care Team Providers Care Alignment Technician Name Role Phone Raphael Reed MD Primary Care Provider + Reason for Visit * Reason Comments eRx-Medication Refill Encounter Details Date Type Department Care Team (Late st Contact Info) Description 06/18/2024 Refill General Internal Medicine [facility] [place] 200 [facility] [place] [address] Raphael Reed MD 200 [place] [address] Mixed hyperlipidemia Allergies No known active allergiesdocumented as of this encounter (statuses as of 06/19/2024) Medications Tiey-Nnakv-ZKR-Emory swellia-Vit D (GLUCOSAMINE CHONDROITIN COMPLX) TABS Take [...] twice daily for 3 weeks 40 g 024 Active Additional Information Patient not taking.Reported on 05/05/2024 Rosuvastatin Calcium 10 MG Oral Tablet (Crestor)Indicati ons:Mixed hyperlipidemia TAKE 1 TABLET BY MOUTH EVERY DAY IN THE MORNING 90 Tablet 3 Active Rosuvastatin Calcium 10 MG Oral Tablet (Crestor)Indicati ons:Mixed hyperlipidemia TAKE 1 TABLET BY MOUTH EVERY DAY IN THE MORNING 90 Tablet 1 024 2023 Discontinued documented as of this encounter (statuses as of 06/19/2024) Active Problems Problem Noted Date Diagnosed Date [...] as of this encounter (statuses as of 06/19/2024) Resolved Problems Problem Noted Date Diagnosed Date [...] failure rates. Contacts: PI: Dr. Joyce Castrejon [facility]- Ofelia Lewis ([phone]) [facility]- Oliva Martineztodd ([phone]) [facility]- Melissa Castellon ([phone]) Diagnosis changed due to Research Module. Go to Snapshot for study details. documented as of this encounter (statuses as of 06/19/2024) Immunizations Name Administration Dates Next Due COVID-19 [...] file Not on file Not on file [facility] Not on file Not on file Not on file documented as of this encounter Miscellaneous Notes * Telephone Encounter - Shelbie Ramírez RPh - 06/19/2024 1:42 PM EST Signed Prescriptions: Disp Refills Rosuvastatin Calcium 10 MG Oral Tablet (Cr*90 Tab*3 Sig: TAKE 1 TABLET BY MOUTH EVERY DAY IN THE MORNINGAuthorizing Provider: RAPHAEL REED User: SHELBIE RAMÍREZ documented in this encounter Plan of Treatment Upcoming Encounters Date Type Department Care Team (Late st Contact Info) Description 08/27/2024 2:40 PM EST Office Visit General Internal Medicine State Nicki Ortiz [address] [place] [address] Raphael Reed MD 200 [place] [facility] [place] [address] Scheduled Procedures Name Priority Associated Diagnoses Date/Ti [...] this encounter Medical Devices Implanted Type Area Communications Tower Climber Device Identifier Shelf Expiration Date Model / Serial / Lot Hemostatic Clip Res 235cm - [id number] Implanted:Qty: 2 on 10/31/2023 by Doe Candelaria MD at ENDOSCOPY [facility] [employer] : ENDOSCOPY 02/15/2026 [id number] / / Hemostatic Clip Res 235cm - [id number] Implanted:Qty: 4 on 10/31/2023 by Doe Candelaria MD at ENDOSCOPY [facility] [employer] : ENDOSCOPY 04/02/2026 [id number] / / documented as of this encounter Visit Diagnoses Diagnosis Mixed hyperlipidemia documented in this encounter Care Teams Alignment Technician Relationship Specialty Start Date End Date Raphael Reed MD 200 [place] [address] PCP - General Internal Medicine 06/17/13 documented as of this encounter
--- OUTSIDE RECORDS SUMMARY | 2024-08-04 23:16 | External Medical Summary | Summary of Care ---
Author Name Unknown Organization [facility] Address [address] [place] [address] Phone [phone] Care Team Providers Care Lung Puller Name Role Phone Raphael Garcias MD Primary Care Provider + Encounter Details Date Type Department Care Team (Late st Contact Info) Description 05/07/2024 Result Scan Unspecified Department Julia Henderson, DO 400 [facility] [place] [id number] <No scans attached> Allergies No known active allergiesdocumented as of this encounter (statuses as of 05/07/2024) Medications Medication Sig Dispensed Refills Start Date End Date Status Lslv-Fbvwx-HLK-Boswel kerri-Vit D (GLUCOSAMINE CHONDROITIN COMPLX) TABS Take [...] as of this encounter (statuses as of 05/07/2024) Active Problems Problem Noted Date Diagnosed Date [...] as of this encounter (statuses as of 05/07/2024) Resolved Problems Problem Noted Date Diagnosed Date [...] failure rates. Contacts: PI: Dr. Joyce Castrejon [facility]- Ofelia Lewis ([phone]) [facility]- Oliva Santacruz ([phone]) [facility] Chaudhrys [facility]- Melissa Castellon ([phone]) Diagnosis changed due to Research Module. Go to Snapshot for study details. documented as of this encounter (statuses as of 05/07/2024) Immunizations Name Administration Dates Next Due COVID-19 [...] on file documented as of this encounter Plan of Treatment Upcoming Encounters Date Type Department Care Team (Late st Contact Info) Description 08/27/2024 2:40 PM EST Office Visit General Internal Medicine [place] [address] [place] [address] Raphael Garcias MD 200 [facility] [place] [address] Health Maintenance Due Date Last Done Comments Adult Wellness Visit 04/12/2018 04/12/2017 COVID-19 Vaccine (2023- season) 2024 09/26/2023, 10/03/2020, 08/30/2020 Influenza Vaccine [...] this encounter Medical Devices Implanted Type Area District Loss Prevention Manager Device Identifier Shelf Expiration Date Model / Serial / Lot Hemostatic Clip Res 235cm - [id number] Implanted:Qty: 2 on 10/31/2023 by Doe Candelaria MD at ENDOSCOPY [facility] [employer] : ENDOSCOPY 02/15/2026 [id number] / / Hemostatic Clip Res 235cm - [id number] Implanted:Qty: 4 on 10/31/2023 by Doe Candelaria MD at ENDOSCOPY [facility] : ENDOSCOPY 04/02/2026 [id number] / / documented as of this encounter Procedures Procedure Name Priority Date/Time Associated Diagnosis Comments CARDIOLOGY SCANNED RESULT 05/07/2024 documented in this encounter Results * CARDIOLOGY SCANNED RESULT (05/07/2024) 05/07/2024 Julia Henderson DO OTHER documented in this encounter Care Teams Lung Puller Relationship Specialty Start Date End Date Raphael Garcias MD 200 [facility] [place] [address] PCP - General Internal Medicine 06/17/13 documented as of this encounter
--- OUTSIDE RECORDS SUMMARY | 2024-08-04 23:17 | External Medical Summary | Summary of Care ---
Author Name Unknown Organization [facility] Address [address] [place] [address] Phone [phone] Care Team Providers Care Cuprous Chloride Helper Name Role Phone Raphael Reed MD Primary Care Provider + Reason for Visit * Reason Comments eRx-Medication Refill Encounter Details Date Type Department Care Team (Late st Contact Info) Description 02/23/2024 Refill General Internal Medicine [facility] 200 [facility] [place] [address] Raphael Reed MD 200 [facility] [place] [address] Moderate depressive disorder; KARIME (generalized anxiety disorder) Allergies No known active allergiesdocumented as of this encounter (statuses as of 02/23/2024) Medications Medication Sig Dispensed Refills Start Date End Date Status Dkxl-Qggbv-XTT-Boswe llia-Vit D (GLUCOSAMINE CHONDROITIN COMPLX) TABS Take by [...] Active Rosuvastatin Calcium 10 MG Oral Tablet (Crestor)Indications :Mixed hyperlipidemia TAKE 1 TABLET BY MOUTH EVERY DAY IN THE MORNING 90 Tablet 1 12/25/2023 Active Sertraline HCl 50 MG Oral Tablet (Zoloft)Indications: Moderate depressive disorder,KARIME (generalized anxiety disorder) TAKE 1 TABLET BY MOUTH EVERY DAY 90 Tablet 1 02/23/2024 Active Sertraline HCl 50 MG Oral Tablet (Zoloft)Indications: Moderate depressive disorder,KARIME (generalized anxiety disorder) 1 pill by mouth daily 90 Tablet 1 07/11/2023 4 Discontinued documented as of this encounter (statuses as of 02/23/2024) Active Problems Problem Noted Date Diagnosed Date [...] as of this encounter (statuses as of 02/23/2024) Resolved Problems Problem Noted Date Diagnosed Date [...] PI: Dr. Joyce Castrejon [facility]- Ofelia Lewis ([phone]) [facility]- Oliva Santacruz ([phone]) [facility]- Melissa Castellon ([phone]) Diagnosis changed due to Research Module. Go to Snapshot for study details. documented as of this encounter (statuses as of 02/23/2024) Immunizations Name Administration Dates Next Due COVID-19 mRNA, LNP-s, No Pre serve, 2-Dose Series (Moderna) 10/03/2020,08/30/2020 DTP Vaccine 01/09/2015 Pneumococcal Conjugate Vacc, 13 Valent (Prevnar) 11/03/2015 Pneumococcal Polysaccharide PPV23 (Pneumovax) RSV Vac., Recomb, Adjuvant, PF,0.5 Ml (Arexvy) 1 Season Influenza, Quad, PF, Adjuvanted, 65+ Yrs, IM (FLUAD) 04/23/2020 Seasonal Influenza, PF, 6 M & above, IM , (FluLaval or Fluzone) 05/06/2018,05/04/2017 Seasonal Influenza, Quadrivalent Hd (Fluzone Hd) 05/09/2023,05/12/2021 Seasonal Influenza, Quadrivalent, No Preserve, I M 05/18/2016,06/04/2015 Seasonal Influenza, Split, IIV3, With Preserve, Inj 05/20/2014,05/20/2013 Seasonal Influenza, Trivalen t, High Dose, No Preserve, IM 05/03/2022,05/08/2019 TDAP (age 10 and older)(Boostrix) 01/25/2023 TDAP, [...] encounter Miscellaneous Notes * Telephone Encounter - Glenn Stroud RPh - 02/23/2024 10:08 AM EDTSigned Prescriptions: Disp Refills Sertraline HCl 50 MG Oral Tablet (Zoloft) 90 Tab*1 Sig: TAKE 1 TABLET BY MOUTH EVERY DAYAuthorizing Provider: RAPHAEL REED User: GLENN STROUD documented in this encounter Plan of Treatment Upcoming Encounters Date Type Department Care Team (Latest Contact Info) Description 04/28/2024 1:45 PM EDT Office Visit Dermatology [place] Nicki Ortiz [address] [place] [address] Raphael Cortes MD [address] [place] [address] 05/05/2024 9:30 AM EDT Hospital Encounter ENDO [facility], Endoscopy Room [facility] [address] [place] [phone] Doe Candelaria MD [address] [place] [address] 05/05/2024 9:30 AM EDT - 05/05/2024 10:00 AM EDT Surgery ENDO [facility], Endoscopy Room [facility] [address] [place] [address] Doe Candelaria MD [address] [place] [address] COLONOSCOPY FLEXIBLE PROXIMAL DIAGNOSTIC 08/27/2024 2:40 PM EST Office Visit General Internal Medicine [facility] 200 [facility] [address] Raphael Reed MD 200 [facility] [place] [address] Scheduled Procedures Name Priority Associated Diagnoses Date/Ti me COLONOSCOPY FLEXIBLE PROXIMAL DIAGNOSTIC History of colonic polyps 05/05/2024 9:30 AM EDT Health Maintenance Due Date Last Done Comments COVID-19 Vaccine ( - 2022- season) 2024 09/26/2023, 10/03/2020, 08/30/2020 Influenza Vaccine (FLU shot) (#1) 2024 05/22/2023, 05/09/2023, 05/03/2022, Additional history exists Depression Monitoring 07/11/2024 07/11/2023 DTaP,Tdap,and Td Vaccines (4 - Td or Tdap) 01/25/2033 [...] this encounter Medical Devices Implanted Type Area Blemish Remover Device Identifier Shelf Expiration Date Model / Serial / Lot Hemostatic Clip Res 235cm - [id number] Implanted:Qty: 2 on 10/31/2023 by Doe Candelaria MD at ENDOSCOPY [facility] : ENDOSCOPY 02/15/2026 [id number] / / Hemostatic Clip Res 235cm - [id number] Implanted:Qty: 4 on 10/31/2023 by Doe Candelaria MD at ENDOSCOPY [facility] : ENDOSCOPY 04/02/2026 [id number] / / documented as of this encounter Visit Diagnoses Diagnosis Moderate depressive disorder Depressive disorder, not elsewhere classified KARIME (generalized anxiety disorder) Generalized anxiety disorder History of colonic polyps Personal history of colonic polyps documented in this encounter Care Teams Cuprous Chloride Helper Relationship Specialty Start Date End Date Raphael Reed MD [address] [place] [address] PCP - General Internal Medicine 06/17/13 documented as of this encounter
--- OUTSIDE RECORDS SUMMARY | 2024-08-04 23:17 | External Medical Summary | Summary of Care ---
Author Name Unknown Organization [facility] Address [address] [place] [address] Phone [phone] Care Team Providers Care Supervisor Hydrochloric Area Name Role Phone Raphael Garcias MD Primary Care Provider + Encounter Details Date Type Department Care Team (Late st Contact Info) Description 03/23/2024 Result Scan Unspecified Department Julia Henderson, DO [address] [facility] [id number] <No scans attached> Allergies No known active allergiesdocumented as of this encounter (statuses as of 03/23/2024) Medications Medication Sig Dispensed Refills Start Date End Date Status Lfjb-Bwzaf-DVI-Boswelli a-Vit D (GLUCOSAMINE CHONDROITIN COMPLX) TABS Take [...] EVERY DAY 90 Tablet 1 02/23/2024 Active documented as of this encounter (statuses as of 03/23/2024) Active Problems Problem Noted Date Diagnosed Date [...] as of this encounter (statuses as of 03/23/2024) Resolved Problems Problem Noted Date Diagnosed Date [...] rates. Contacts: PI: Dr. Joyce Bliss-Jacqui Castrejon [facility]- Ofelia Lewis ([phone]) [facility]- Oliva Santacruz ([phone]) [facility]- Melissa Castellon ([phone]) Diagnosis changed due to Research Module. Go to Snapshot for study details. documented as of this encounter (statuses as of 03/23/2024) Immunizations Name Administration Dates Next Due COVID-19 [...] 04/28/2024 1:45 PM EDT Office Visit Dermatology [place] 200 [facility] [place] [address] Raphael Cortes MD 200 [facility] [place] [address] 05/05/2024 9:30 AM EDT Hospital Encounter ENDO [facility], Endoscopy Room [facility] [address] [place] [phone] Doe Candelaria MD [address] [place] [address] 05/05/2024 9:30 AM EDT - 05/05/2024 10:00 AM EDT Surgery ENDO [facility], Endoscopy Room [facility] [address] [place] [phone] Doe Candelaria MD [address] [place] [address] COLONOSCOPY FLEXIBLE PROXIMAL DIAGNOSTIC 08/27/2024 2:40 PM EST Office Visit General Internal Medicine [place] 200 [facility] [place] [address] Raphael Garcias MD 200 [facility] [place] [address] Scheduled Procedures Name Priority Associated Diagnoses Date/Ti me COLONOSCOPY FLEXIBLE PROXIMAL DIAGNOSTIC History of colonic polyps 05/05/2024 9:30 AM EDT Health Maintenance Due Date Last Done Comments Adult Wellness Visit 04/12/2018 04/12/2017 COVID-19 Vaccine (4 - 2022- season) 2024 09/26/2023, 10/03/2020, 08/30/2020 [...] this encounter Medical Devices Implanted Type Area Manager Traffic Device Identifier Shelf Expiration Date Model / Serial / Lot Hemostatic Clip Res 235cm - [id number] Implanted:Qty: 2 on 10/31/2023 by oDe Candelaria MD at ENDOSCOPY [facility] : ENDOSCOPY 02/15/2026 [id number] / / Hemostatic Clip Res 235cm - [id number] Implanted:Qty: 4 on 10/31/2023 by Doe Candelaria MD at ENDOSCOPY [facility] [employer] : ENDOSCOPY 04/02/2026 [id number] / / documented as of this encounter Procedures Procedure Name Priority Date/Time Associated Diagnosis Comments CARDIOLOGY SCANNED RESULT 03/23/2024 documented in this encounter Results * CARDIOLOGY SCANNED RESULT (03/23/2024) 03/23/2024 Julia WEEKS documented in this encounter Care Teams Supervisor Hydrochloric Area Relationship Specialty Start Date End Date Raphael Garcias MD 200 [facility], [place] [phone] PCP - General Internal Medicine 06/17/13 documented as of this encounter
--- OUTSIDE RECORDS SUMMARY | 2024-08-04 23:17 | External Medical Summary | Summary of Care ---
Author Name Unknown Organization [facility] Address [address] [place] [address] Phone [phone] Care Team Providers Care Testing Tech Name Role Phone Raphael Garcias MD Primary Care Provider + Reason for Visit * Reason Onset Date Comments Appointment 02/15/2024 [facility] appointment Encounter Details Date Type Department Care Team (Late st Contact Info) Description 02/15/2024 Telephone Cardiology, [facility] 132 [place] [address] [facility] 132 [place] [address] Appointment ([facility] appointment ) Allergies No known active allergiesdocumented as of this encounter (statuses as of 02/15/2024) Medications Medication Sig Dispensed Refills Start Date End Date Status Ponv-Ouwca-PGY-Boswelli a-Vit D (GLUCOSAMINE CHONDROITIN COMPLX) TABS Take [...] (Zoloft)Indications:Mod erate depressive disorder,KARIME (generalized anxiety disorder) 1 pill by mouth daily 90 Tablet 1 07/11/2023 Active Rosuvastatin Calcium 10 MG Oral Tablet (Crestor)Indications:Mi xed hyperlipidemia TAKE 1 TABLET BY MOUTH EVERY DAY IN THE MORNING 90 Tablet 1 12/25/2023 Active documented as of this encounter (statuses as of 02/15/2024) Active Problems Problem Noted Date Diagnosed Date [...] as of this encounter (statuses as of 02/15/2024) Resolved Problems Problem Noted Date Diagnosed Date [...] PI: Dr. Joyce Castrejon [facility]- Ofelia Lewis ([phone]) [facility]- Oliva Santacruz ([phone]) [facility]- Melissa Castellon ([phone]) Diagnosis changed due to Research Module. Go to Snapshot for study details. documented as of this encounter (statuses as of 02/15/2024) Immunizations Name Administration Dates Next Due COVID-19 [...] encounter Miscellaneous Notes * Telephone Encounter - Angelic Marin LPN - 02/15/2024 1:15 PM EDT [employer] message sent to patient regarding cancellation of [facility] appointment 03/07/2024,. Patient is monitored remotely. IOC not indicated at this time. documented in this encounter Plan of Treatment Upcoming Encounters Date Type Department Care Team (Latest Contact Info) Description 03/07/2024 10:00 AM EDT Cardiac Studies Cardiology, [facility] 132 [facility] [place] [address] [facility] 132 [facility] [place] [address] 04/28/2024 1:45 PM EDT Office Visit Dermatology [place] [address] [place] [address] Raphael Cortes MD [address] [place] [address] 05/05/2024 9:30 AM EDT Hospital Encounter ENDO [facility], Endoscopy Room [facility] 132 [facility] [place] [phone] Doe Candelaria MD [address] [place] [address] 05/05/2024 9:30 AM EDT - 05/05/2024 10:00 AM EDT Surgery ENDO [facility], Endoscopy Room [facility] [address] [place] [phone] Doe Candelaria MD [address] [place] [address] COLONOSCOPY FLEXIBLE PROXIMAL DIAGNOSTIC 08/27/2024 2:40 PM EST Office Visit General Internal Medicine [facility] [place] 200 [facility] [place] [address] Raphael Garcias MD 200 [facility] [place] [address] Scheduled Procedures Name Priority Associated Diagnoses Date/Ti me COLONOSCOPY FLEXIBLE PROXIMAL DIAGNOSTIC History of colonic polyps 05/05/2024 9:30 AM EDT Health Maintenance Due Date Last Done Comments COVID-19 Vaccine (2022- season) 2024 09/26/2023, 10/03/2020, 08/30/2020 Influenza Vaccine [...] this encounter Medical Devices Implanted Type Area Animal Taxonomist Device Identifier Shelf Expiration Date Model / Serial / Lot Hemostatic Clip Res 235cm - [id number] Implanted:Qty: 2 on 10/31/2023 by Doe Candelaria MD at ENDOSCOPY [facility] : ENDOSCOPY 02/15/2026 [id number] / / Hemostatic Clip Res 235cm - [id number] Implanted:Qty: 4 on 10/31/2023 by Doe Candelaria MD at ENDOSCOPY [facility] : ENDOSCOPY 04/02/2026 [id number] / / documented as of this encounter Care Teams Testing Tech Relationship Specialty Start Date End Date Raphael Garcias MD 200 [place] [address] PCP - General Internal Medicine 06/17/13 documented as of this encounter
[2024-08-04] MEDS ORDERED: AMPICILLIN/SULBACTAM SOD 3,000 MG/100 ML BAG IV STA (23:25)
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
--- NOTE | 2024-08-04 23:38 | CT Scan Report ---
Exam(s): CT HEAD Without Contrast EXAM: CT Head Without Intravenous Contrast CLINICAL HISTORY: Reason for exam: stone, hyponatremia, htn. TECHNIQUE: Axial computed tomography images of the head/brain without intravenous contrast. CTDI is 36.18 mGy and DLP is 624.41 mGy-cm. Automated exposure control was utilized for the study. A dose lowering technique was utilized adhering to the principles of ALARA. COMPARISON: MRI brain 01/29/14 FINDINGS: Brain: Age-related parenchymal volume loss. Mild chronic small vessel ischemic change. Dominguez-white matter differentiation maintained. No hemorrhage, mass effect, parenchymal edema, or midline shift. Ventricles: Unremarkable. No hydrocephalus. Bones/joints: Unremarkable. No acute fracture. Soft tissues: Unremarkable. Vasculature: Intracranial atherosclerosis. Sinuses: Trace thickening in the ethmoids. Mastoid air cells: Unremarkable as visualized. No mastoid effusion. IMPRESSION: No acute intracranial process. Electronically signed by: Janie Joseph M.D. 08/04/24 23:38 PM
[2024-08-04] MEDS ORDERED: Ativan IV Alcohol Withdrawal--Active Protocol IV PRN (23:48)
[2024-08-04] MEDS ORDERED: GABAPENTIN 1200MG ALCOHOL WITHDRAWAL LOAD PO STA (23:48)
[2024-08-04] MEDS ORDERED: LORazepam 2 MG/1 ML VIAL IV PRN ×3 (23:48)
[2024-08-04] MEDS ORDERED: PROMETHAZINE 6.25 MG/50.25 ML BAG IV PRN (23:50)
[2024-08-04 23:56] LABS: Appearance Urine Clear (Clear); Bacteria Urine Automated None Seen (None Seen); Bilirubin Urine Negative (Negative); Blood Urine Trace (Negative); Cast Urine Automated 0-2 /lpf (0-2); Color Urine Yellow; Epithelial Cell Urine Auto 0-2 /hpf (0-2); Glucose Urine UA Negative (Negative); Ketones Urine 3+ (Negative); Leukocyte Esterase Urine Negative (Negative); Nitrite Urine Negative (Negative); Protein Urine 2+ (Negative); Specific Gravity Urine 1.024 (1.000-1.030); Urobilinogen Urine Negative (Negative); WBC Urine Automated 0-5 /hpf (0-5)
[2024-08-05 00:32] LABS: Adenovirus F 40/41 PCR Not Detected (NotDetected); Astrovirus PCR Not Detected (NotDetected); Campylobacter PCR Not Detected (NotDetected); Cryptosporidium PCR Not Detected (NotDetected); Cyclospora cayetanensis PCR Not Detected (NotDetected); Entamoeba histolytica PCR Not Detected (NotDetected); Enteroaggregative E.coli(EAEC) Not Detected (NotDetected); Enteropathogenic E.coli (EPEC) Not Detected (NotDetected); Enterotoxigenic E.coli (ETEC) Not Detected (NotDetected); Giardia lamblia PCR Not Detected (NotDetected); Norovirus GI/GII PCR Not Detected (NotDetected); Plesiomonas shigelloides PCR Not Detected (NotDetected); Rotavirus A PCR Not Detected (NotDetected); Salmonella PCR Not Detected (NotDetected); Sapovirus PCR Not Detected (NotDetected); Shiga-like Toxin E.coli (STEC) Not Detected (NotDetected); Shigella/Enteroinvasive E.coli Not Detected (NotDetected); Vibrio cholerae PCR Not Detected (NotDetected); Vibrio species PCR Not Detected (NotDetected); Yersinia enterocolitica PCR Not Detected (NotDetected)
--- OUTSIDE RECORDS SUMMARY | 2024-08-05 00:42 | External Medical Summary | Summary of Care ---
Author Name Unknown Organization [facility] Address [address] [place] [address] Phone [phone] Care Team Providers Care Cloth Stock Sorter Name Role Phone Raphael Garcias MD Primary Care Provider + Encounter Details Date Type Department Care Team (Late st Contact Info) Description 08/04/2024 12:40 PM EST Telemedicine [facility] [address] [place] [phone] Michael Cardenas MD [address], [place] [id number] Bronchitis, complicated* Allergies No known active allergiesdocumented as of this encounter (statuses as of 08/04/2024) Medications Ieam-Xiqqn-MTG-Rickey wellia-Vit D (GLUCOSAMINE CHONDROITIN COMPLX) TABS Take by mouth. 05/04/20 17 Active Multiple Vitamins-Minerals (MULTIVITAMIN MEN 50+) TABS Take 1 Tab by mouth daily. Active Acetaminophen 500 MG Oral Tablet (TYLENOL) Take 2 Tablets by mouth every 8 hours as needed (pain). 06/29/20 20 Active Vitamin D 25 MCG (1000 UT) Oral Tablet Take by mouth. Activ e Calcium Citrate-Vitamin D3 315-6.25 MG-MCG Oral Tablet Take by mouth 1 Tablet daily . Active Sertraline HCl 50 MG Oral Tablet (Zoloft)Indication s:Moderate depressive disorder,KARIME (generalized anxiety disorder) TAKE 1 TABLET BY MOUTH EVERY DAY 90 Tablet 1 02/23/20 24 Active Fluorouracil 5 % External Cream (Efudex) Apply thin layer to scalp twice daily for 3 weeks 40 g 04/28/20 24 Active Additional Information Patient not taking.Reported on 05/05/2024 Rosuvastatin Calcium 10 MG Oral Tablet (Crestor)Indicatio ns:Mixed hyperlipidemia TAKE 1 TABLET BY MOUTH EVERY DAY IN THE MORNING 90 Tablet 3 06/19/20 24 Active Benzonatate 100 MG Oral Capsule (Tessalon Perlbelen)Indications :Acute cough Take 1 Capsule by mouth 3 times a day as needed for Cough. Do not cut, crush, or chew. 50 Capsule 1 08/02/20 24 Active Doxycycline Hyclate 100 MG Oral CapsuleIndications :Bronchitis, complicated Take 1 Capsule by mouth in the morning and 1 Capsule before bedtime. Do all this for 10 days. Until gone.. 20 Capsule 08/04/20 24 025 Active documented as of this encounter (statuses as of 08/04/2024) Active Problems Problem Noted Date Diagnosed Date [...] as of this encounter (statuses as of 08/04/2024) Resolved Problems Problem Noted Date Diagnosed Date [...] PI: Dr. Joyce Bliss-Jacqui Castrejon CRC- Ofelia Brasherkim ([phone]) [facility] CRC- Oliva Santacruz ([phone]) [facility] CRC- Melissa Castellon ([phone]) Diagnosis changed due to Research Module. Go to Snapshot for study details. documented as of this encounter (statuses as of 08/04/2024) Immunizations Name Administration Dates Next Due COVID-19 [...] file Not on file Not on file fed government Not on file Not on file Not on file documented as of this encounter Progress Notes * Michael Cardenas MD - 08/04/2024 12:57 PM EST Patient location: HOME. I was in a hospital or clinic location. After connecting through televideo,patient was verified with two unique identifiers. Patient (or authorized legal accounts receivable representative) was then informed that this was a Telemedicine visit and being conducted confidentially over secure lines. Methods to assure confidentiality were taken. Patient acknowledged consent and understanding of pr ivacy and security of the Telemedicine visit. The patient agreed to participate. Subjective: Jorge Chaves is a 79 year old male. No chief complaint on file. HPI: 79-year-old seen via video because of systems in worsening cough. His symptoms began 2 weeks ago with a cough and sore throat. After about a week symptoms were notably improved but not resolved.He traveled to [place] between July 23 and July 31. Because of worsening symptoms he was seen at Urgent Care 2 days ago. PCR respiratory panel was completely negative - negative for influenza, COVID 18, RSV as well as other respiratory pathogens. Now notes some generalized weakness and decreased appetite. He has some watery diarrhea. Some short of breath with activity (including walking in his home) although not short of breath at rest. He is not aware of fever. Patient Active Problem List Diagnosis Hyperlipidemia Squamous [...] Current Outpatient Medications Medication Sig Dispense Refill Fpbs-Qprfw-VYE-Boswellia-Vit D (GLUCOSAMINE CHONDROITIN COMPLX) TABS Take by mouth. Multiple Vitamins-Minerals (MULTIVITAMIN MEN 50+) TABS Take 1 Tab by mouth daily. Acetaminophen 500 MG Oral Tablet (TYLENOL) Take 2 Tablets by mouth every 8 hours as needed (pain). Vitamin D 25 MCG (1000 UT) Oral Tablet Take by mouth. Calcium Citrate-Vitamin D3 315-6.25 MG-MCG Oral Tablet Take by mouth 1 Tablet daily . Sertraline HCl 50 MG Oral Tablet (Zoloft) TAKE 1 TABLET BY MOUTH EVERY DAY 90 Tablet 1 Fluorouracil 5 % External Cream (Efudex) Apply thin layer to scalp twice daily for 3 weeks (Patientnot taking: Reported on 05/05/2024) 40 g 0 Rosuvastatin Calcium 10 MG Oral Tablet (Crestor) TAKE 1 TABLET BY MOUTH EVERY DAY IN THE MORNING 90Tablet 3 Benzonatate 100 MG Oral Capsule (Tessalon Perles) Take 1 Capsule by mouth 3 times a day as needed for Cough. Do not cut, crush, or chew. 50 Capsule 1 No current facility-administered medications for this visit. Review of patient's allergies indicates: No Known Allergies Objective: There were no vitals taken for this visit. Physical Exam: CONST: alert, pleasant, no acute distress ASSESSMENT/PLAN: Probable complicated bronchitis although pneumonia certainly a possibility. Stressed the importanceof staying well hydrated. Given diarrhea and addition of doxycycline, he is to eliminate dairy products as much as possible. Switch to low-fiber diet till diarrhea improved. Add doxycycline 100 mg twice a day for 10 days Chest x-ray to be done [facility] Emergency Room if he develops fever 101 or higher or shortness of breath at rest. Addendum: CXR not read by radiology but my interpretation: diffuse vascular congestion vs patchy infiltrates/ borderline to slight cardiomegaly. I spoke with Pt and and recommended he go to [facility] ER for further eval.and treatment They agree to go. Michael Cardenas MD documented in this encounter Plan of Treatment Upcoming Encounters Date Type Department Care Team (Late st Contact Info) Description 08/27/2024 2:40 PM EST Office Visit General Internal Medicine [facility] [place] [address] [facility] [place], [place] [address] Raphael Garcias MD [address] [facility] [place], [place] [address] Pending Results Name Type Priority Associated Diagnoses Date /Time XR CHEST 2 VIEWS Medical Imaging Routine Bronchitis, complicated 08/04/2024 1:55 PM EST Scheduled Orders Name Type Priority Associated Diagnoses Orde r Schedule XR CHEST 2 VIEWS Medical Imaging Routine Bronchitis, complicated Expected: 08/04/2024, Expires: 09/04/2024 Scheduled Procedures Name Priority Associated Diagnoses Date/Ti [...] this encounter Medical Devices Implanted Type Area Chisel Trimmer Device Identifier Shelf Expiration Date Model / Serial / Lot Hemostatic Clip Res 235cm - [id number] Implanted:Qty: 2 on 10/31/2023 by Doe Candelaria MD at ENDOSCOPY [facility] [employer] : ENDOSCOPY 02/15/2026 [id number] / / Hemostatic Clip Res 235cm - [id number] Implanted:Qty: 4 on 10/31/2023 by Doe Candelaria MD at ENDOSCOPY [facility] [employer] : ENDOSCOPY 04/02/2026 [id number] / / documented as of this encounter Visit Diagnoses Diagnosis Bronchitis, complicated- Primary Bronchitis, not specified as acute or chronic documented in this encounter Care Teams Cloth Stock Sorter Relationship Specialty Start Date End Date Raphael Garcias MD [address] [place] [address] PCP - General Internal Medicine 06/17/13 documented as of this encounter
--- OUTSIDE RECORDS SUMMARY | 2024-08-05 00:42 | External Medical Summary | Summary of Care ---
Author Name Unknown Organization [facility] Address [address] [place] [address] Phone [phone] Care Team Providers Care Motel Food Service Supervisor Name Role Phone Raphael Garcias MD Primary Care Provider + Encounter Details Date Type Department Care Team (Late st Contact Info) Description 08/04/2024 12:40 PM EST Telemedicine [facility] [address] [place] [phone] Michael Cardenas MD [address] [place], [place] [phone] Bronchitis, complicated* Allergies No known active allergiesdocumented as of this encounter (statuses as of 08/04/2024) Medications Vxqk-Wkgqr-SSG-Rickey wellia-Vit D (GLUCOSAMINE CHONDROITIN COMPLX) TABS Take [...] Dr. Joyce Bliss-Jacqui Castrejon CRC- Ofelia Brasherkim ([phone]) [facility] CRC- Oliva Santacruz ([phone]) [facility] CRC- Melissa Castellon ([phone]) Diagnosis changed due to Research Module. Go [...] two unique identifiers. Patient (or authorized legal energy conservation representative) was then informed that this was [...] notably improved but not resolved.He traveled to [place] between July 23 and July 31. Because of worsening symptoms he was seen at Urgent Care 2 days ago. PCR respiratory panel was completely negative - negative for influenza, COVID 18, RSV as well as other respiratory pathogens. Now notes some generalized weakness and decreased appetite. He has some watery diarrhea. Some short of breath with activity although not short of breath at rest. [...] Current Outpatient Medications Medication Sig Dispense Refill Ockl-Uvuan-DEL-Boswellia-Vit D (GLUCOSAMINE CHONDROITIN COMPLX) TABS Take by [...] 10 days Chest x-ray to be done [facility] Emergency Room if he develops fever 101 or higher or shortness of breath at rest. Michael Cardenas MD documented in this encounter Plan of Treatment Upcoming Encounters Date Type Department Care Team (Late st Contact Info) Description 08/04/2024 1:40 PM EST Laboratory Laboratory, [facility] [place] [address] [place] [phone] Kendrick Racquel Berta [address] [place] [address] Arrived 08/27/2024 2:40 PM EST Office Visit General Internal Medicine [facility] [place] [address] [facility] [place] [address] Raphael Garcias MD [address] [facility] [place] [address] Scheduled Orders Name Type Priority Associated Diagnoses [...] this encounter Medical Devices Implanted Type Area National Dedicated Truck Driver Device Identifier Shelf Expiration Date Model / Serial / Lot Hemostatic Clip Res 235cm - [id number] Implanted:Qty: 2 on 10/31/2023 by Doe Candelaria MD at ENDOSCOPY [facility] [employer] : ENDOSCOPY 02/15/2026 [id number] / / Hemostatic Clip Res 235cm - [id number] Implanted:Qty: 4 on 10/31/2023 by Doe Candelaria MD at ENDOSCOPY [facility] [employer] : ENDOSCOPY 04/02/2026 [id number] / / documented as of this encounter Visit Diagnoses Diagnosis Bronchitis, complicated- Primary Bronchitis, not specified as acute or chronic documented in this encounter Care Teams Motel Food Service Supervisor Relationship Specialty Start Date End Date Raphael Garcias MD [address] [place] [address] PCP - General Internal Medicine 06/17/13 documented as of this encounter
--- OUTSIDE RECORDS SUMMARY | 2024-08-05 00:42 | External Medical Summary | Summary of Care ---
Author Name Unknown Organization [facility] Address [address] [place] [address] Phone [phone] Care Team Providers Care Metallurgical Analyst Name Role Phone Raphael Garcias MD Primary Care Provider + Reason for Visit * Reason Comments Outpatient Testing Encounter Details Date Type Department Care Team (Late st Contact Info) Description 08/04/2024 1:40 PM EST Laboratory Laboratory, [facility] [address] [place] [id number] [facility] [address] [place] [address] Arrived Allergies No known active allergiesdocumented as of this encounter (statuses as of 08/04/2024) Medications Zlia-Yapyv-IOC-Rickey wellia-Vit D (GLUCOSAMINE CHONDROITIN COMPLX) TABS Take [...] PI: Dr. Joyce Bliss-Jacqui Castrejon CRC- Ofelia Joshua ([phone]) [facility] CRC- Oliva Santacruz ([phone]) [facility] CRC- Melissa Castellon ([phone]) Diagnosis changed due to Research Module. Go [...] Office Visit General Internal Medicine [facility] [address] [address] [place] [address] Raphael Garcias MD [address] [facility] [place] [address] Scheduled Procedures Name Priority Associated Diagnoses Date/Ti [...] this encounter Medical Devices Implanted Type Area Household Assistant Device Identifier Shelf Expiration Date Model / Serial / Lot Hemostatic Clip Res 235cm - [id number] Implanted:Qty: 2 on 10/31/2023 by Doe Candelaria MD at END[facility]COPY [facility] : ENDOSCOPY 02/15/2026 [id number] / / Hemostatic Clip Res 235cm - [id number] Implanted:Qty: 4 on 10/31/2023 by Doe Candelaria MD at ENDOSCOPY [facility] : ENDOSCOPY 04/02/2026 [id number] / / documented as of this encounter Care Teams Metallurgical Analyst Relationship Specialty Start Date End Date Raphael Garcias MD [address] [place] [address] PCP - General Internal Medicine 06/17/13 documented as of this encounter
[2024-08-05] MEDS ORDERED: ACETAMINOPHEN 325 MG TAB PO PRN (00:57)
[2024-08-05 01:02] LABS: Hematocrit (blood only) 34.3 % (42.0-52.0); Reticulocyte % 0.93 % (0.50-2.00); Reticulocytes # 0.04 10^6/uL (0.020-0.100)
[2024-08-05 01:39] LABS: Ferritin 386.9 ng/ml (8-388)
[2024-08-05] MEDS: ACETAMINOPHEN 325 MG TAB PO STA (01:57)
[2024-08-05] MEDS: THIAMINE HCL 100 MG in SYRINGE 9 ML IV STA (01:58)
[2024-08-05] MEDS ORDERED: BENZONATATE 100 MG CAPSULE PO PRN (02:17)
[2024-08-05 02:43] LABS: Folate (Folic Acid),Ser orPlas 19.06 ng/ml (>5.38)
[2024-08-05] MEDS: AMPICILLIN/SULBACTAM SOD 3,000 MG/100 ML BAG IV SCH (02:45)
[2024-08-05] MEDS: FUROSEMIDE INJ 20 MG/2 ML VIAL IV ONE (03:04)
[2024-08-05] MEDS: GABAPENTIN 600 MG TAB PO STA (03:10)
[2024-08-05 05:00] LABS: Basophils # (auto) 0.04 K/uL (0.00-0.20); Basophils % (auto) 0.5 %; Eosinophils # (auto) 0.03 K/uL (0.00-0.50); Eosinophils % (auto) 0.3 %; Hemoglobin 11.3 g/dl (14.0-18.0); Immature Granulocytes # (auto) 0.05 K/uL (0.01-0.20); Immature Granulocytes % (auto) 0.6 %; Lymphocytes # (auto) 0.99 K/uL (1.20-3.40); Lymphocytes % (auto) 11.2 %; Mean Corpuscular Hgb Conc 35.3 g/dL (32.0-36.0); Mean Corpuscular Volume 82.3 fL (80.0-100.0); Mean Platelet Volume 10.9 fL (9.4-12.4); Monocytes # (auto) 0.99 K/uL (0.11-0.59); Monocytes % (auto) 11.2 %; Neutrophils # (auto) 6.72 K/uL (1.40-6.50); Neutrophils % (auto) 76.2 %; Platelet Count 284 K/uL (130-400); RDW Coefficient of Variation 13.1 % (11.5-14.5); RDW Standard Deviation 39.2 fL (36.4-46.3); Red Blood Count 3.89 M/uL (4.70-6.10); White Blood Count 8.82 K/ul (4.8-10.8)
[2024-08-05 05:18] LABS: BUN Creatinine Ratio 17.1 (10-20); Calcium 8.1 mg/dl (8.6-10.3); Creatinine Clr Calc Pharmacy 88.4 ml/min; Potassium 3.7 mmol/L (3.5-5.1)
[2024-08-05] MEDS: TRIMETHOPRIM/POLYMYXIN B OPB SCH (06:04)
[2024-08-05] MEDS: LORazepam 2 MG/1 ML VIAL IV STA (06:05)
[2024-08-05] MEDS: THIAMINE HCL 100 MG TAB PO SCH (09:30)
[2024-08-05] MEDS: ENOXAPARIN INJ 40 MG/0.4 ML SYR SQ SCH (09:30)
[2024-08-05] MEDS: GABAPENTIN 600 MG TAB PO SCH ×2 (09:30→23:35)
[2024-08-05] MEDS: ROSUVASTATIN CALCIUM 10 MG TAB PO SCH (09:30)
[2024-08-05] MEDS: FOLIC ACID 1 MG TAB PO SCH (09:30)
[2024-08-05] MEDS: DOXYCYCLINE HYCLATE 100 MG CAP PO SCH (09:30)
[2024-08-05] MEDS: CEROVITE ADV FORMULA TAB PO SCH (09:30)
[2024-08-05] MEDS: MULTIVITAMIN TAB PO SCH (09:30)
--- NOTE | 2024-08-05 10:08 | Electrocardiogram Report ---
Test Reason : Blood Pressure : */* mmHG Vent. Rate : 71 BPM Atrial Rate : 72 BPM P-R Int : 148 ms QRS Dur : 82 ms QT Int : 406 ms P-R-T Axes : 47 6 0 degrees QTcB Int : 441 ms Normal sinus rhythm with sinus arrhythmia atrial-paced complexes Normal ECG When compared with ECG of 06-Dec-2021 11:12, T wave amplitude has increased in Anterior leads Confirmed by Srinath South ([id number]) on 08/05/2024 10:07:59 AM Referred By: REFERRED SELF Confirmed By: Srinath South
--- NOTE | 2024-08-05 12:20 | Cardiology Consultation ---
Date of Consultation August 05, 2024 Assessment & Plan (1) Acute heart failure with preserved ejection fraction: (2) Pneumonia: (3) Acute hyponatremia: Patient with moderate to borderline severe aortic valve stenosis, preserved LVEF. Presentation suggestive of bilateral pneumonia with superimposed volume overload, hyponatremia. Repeat sodium level was obtained about 30 minutes ago and will await the results before consideration of an additional dose of furosemide. Diuretic therapy indicated especially in the setting of needing IV antibiotics, both do not want to correct this too fast. The patient's troponin is mildly elevated with flat trend x 2 measurements. Will obtain a third measurement. No indication for systemic anticoagulation with heparin at this point. History of Present Illness Attending Physician: Raúl Mena MD History of Present Illness Jorge Chaves is a 79 year old seen in cardiology consultation per the request of Dr Estrella for the evaluation of congestive heart failure. The patient describes having had a cough for the last 2 weeks and then developed shortness of breath of 2 days duration. He had been referred by his primary care provider for an outpatient chest x-ray yesterday that was suggestive of pulmonary edema and he was therefore referred to the hospital for further evaluation. Repeat chest x-ray at this institution revealed a small right pleural effusion and possible bilateral bronchopneumonia. He was also found to be hyponatremic and had complained of a headache. A CT of the brain was unremarkable for acute pathology. The patient received furosemide 20 mg IV x 1 administered at just after 2 AM this morning and is also received antibiotic therapy with Unasyn and doxycycline. During my assessment the patient was comfortable without acute complaint. He denies any symptoms to suggest angina. Past Medical / Cardiac History: Sick sinus syndrome prompting implantation of dual-chamber Medtronic permanent pacemaker on 12/06/2021, most recent remote interrogation performed 05/03/2024 at which time the patient was atrial paced 86% the time, right ventricular paced 0.05% the time, no recent atrial fibrillation episodes, generator longevity 11.58 years Aortic stenosis Dyslipidemia Allergies Allergy/AdvReac Type Severity Reaction Status Date / Time No Known Allergies Allergy Unverified 08/04/24 20:09 Home Medications Medication Instructions Recorded Confirmed Type calcium 315 mg (as 1 tab PO DAILY 12/06/21 08/04/24 History citrate)-vitamin D3 6.25 mcg (250 unit) tablet cholecalciferol (vitamin D3) 25 25 mcg PO DAILY 12/06/21 08/04/24 History mcg (1,000 unit) tablet acetaminophen 500 mg tablet 1,000 mg PO Q8 PRN Pain 08/04/24 08/04/24 History benzonatate 100 mg capsule 100 mg PO TID PRN Cough 08/04/24 08/04/24 History doxycycline hyclate 100 mg capsule 100 mg PO AMHS 08/04/24 08/04/24 History glucosamine 375 hb-mbbelukiv-fwx 1 tab PO UD 08/04/24 08/04/24 History no1 500 mg-C 15 mg-srini 0.5 mg tablet (Sczbdyremxt-Ieubycnvinf-FLV Complex) otpffkydvzgt-bjh-cgrkk acid-vit 1 tab PO DAILY 08/04/24 08/04/24 History K-lycop 400 mcg-20 mcg-370 mcg tablet (Men's 50 Plus Multivitamin) rosuvastatin 10 mg tablet 10 mg PO QAM 08/04/24 08/04/24 History sertraline 50 mg tablet 50 mg PO QAM 08/04/24 08/04/24 History Patient History Medical History Pneumothorax, left S/P pacemaker placement Surgical History S/P placement of cardiac pacemaker Placed 12/06/2021. Medtronic Dual lead. Model Myra XT MRI. SN: [id number] Social History Smoking Status: Former smoker Cigarettes Per Day: 20; Second Hand Exposure: Yes; Do You Dip or Chew Tobacco: No; Hx Alcohol Use: Yes Alcohol type: hard liquor Hx Substance Use: No Preferred Language: [place] Communication Ability: Effective Market Research Analyst Required: No Beliefs That Will Affect Care: None marital status: Current Living Situation: Spouse Current Living Situation Comment: with How many Children do You have: 3 Other Information That Helps Us Care for You: No Feels Safe at Home: Yes Safety Concerns: Feels Safe At This Time Assistive Devices: None Review of Systems Review of Systems: All systems reviewed & are unremarkable except as noted in HPI & below Physical Exam Physical Exam: General: no acute distress and stated age Eyes: conjunctiva are pink and non-injected, sclera clear Neck: normal jugular venous pulse, no hepatojugular reflux Chest: normal shape and normal respiratory effort Lungs:Mildly reduced breath sounds in the bases Cardiac Exam: - regular heart sounds,1/6 systolic murmur Abdomen: abdomen soft, non-tender, no abnormal masses and no hepatosplenomegaly Musculoskeletal: no gait disturbance, no weakness Extremities: no edema and no cyanosis Neuro:awake, conversant, follows commands, no focal motor deficits Psych: appropriate affect and insight. Results & Data Vital Signs (Past 12 Hours) Vital Signs Temp Pulse Pulse Resp BP BP Pulse Ox 08/05/24 12:03 66 08/05/24 11:09 64 08/05/24 11:00 36.6 C 88 19 119/78 98 08/05/24 10:06 67 08/05/24 09:12 71 08/05/24 08:03 67 08/05/24 07:40 122/75 08/05/24 07:39 75 08/05/24 07:15 74 08/05/24 07:00 36.7 C 79 18 122/75 97 08/05/24 06:00 69 20 97 08/05/24 05:00 78 16 99 08/05/24 04:00 68 19 93 08/05/24 03:10 36.9 C 73 20 150/80 H 95 08/05/24 03:08 150/80 H 08/05/24 03:03 84 25 H 08/05/24 02:00 73 20 93 08/05/24 01:18 72 21 92 08/05/24 01:15 76 08/05/24 01:00 08/05/24 01:00 36.8 C 72 22 163/81 H 94 08/05/24 00:56 163/81 H 08/05/24 00:43 81 18 153/90 H 95 08/05/24 00:40 153/90 H 08/05/24 00:30 94 H 29 H O2 Del Method 08/05/24 12:03 08/05/24 11:09 08/05/24 11:00 Room Air 08/05/24 10:06 08/05/24 09:12 08/05/24 08:03 08/05/24 07:40 08/05/24 07:39 08/05/24 07:15 08/05/24 07:00 Room Air 08/05/24 06:00 08/05/24 05:00 08/05/24 04:00 08/05/24 03:10 Room Air 08/05/24 03:08 08/05/24 03:03 08/05/24 02:00 08/05/24 01:18 08/05/24 01:15 08/05/24 01:00 Room Air 08/05/24 01:00 Room Air 08/05/24 00:56 08/05/24 00:43 Room Air 08/05/24 00:40 08/05/24 00:30 Laboratory Results Cardiac Enzymes 08/04/24 08/04/24 08/05/24 Range/Units 18:30 20:48 00:30 AST 37 (13-39) U/L Troponin I High Sens 39.1 H 31.5 H (0-20) pg/ml B-Natriuretic Peptide 701 H (0-100) pg/ml Coagulation 08/04/24 08/05/24 Range/Units 18:30 00:30 PT 11.4 (9.0-12.0) Seconds APTT 30 (21-31) Seconds B-Natriuretic Peptide 701 H (0-100) pg/ml CBC 08/04/24 08/05/24 08/05/24 Range/Units 18:30 00:30 04:30 WBC 10.91 H 8.82 (4.8-10.8) K/ul RBC 4.29 L 3.89 L (4.70-6.10) M/uL Hgb 12.4 L 12.0 L 11.3 L (14.0-18.0) g/dl Hct 35.5 L 34.3 L 32.0 L (42.0-52.0) % Plt Count 291 284 (130-400) K/uL Neut # (Auto) 8.65 H 6.72 H (1.40-6.50) K/uL Lymph # (Auto) 1.05 L 0.99 L (1.20-3.40) K/uL Dade # (Auto) 1.10 H 0.99 H (0.11-0.59) K/uL Eos # (Auto) 0.03 0.03 (0.00-0.50) K/uL Baso # (Auto) 0.04 0.04 (0.00-0.20) K/uL Comprehensive Metabolic Panel 08/04/24 08/05/24 08/05/24 Range/Units 18:30 00:30 04:30 Sodium 122 L 124 L 123 L (136-145) mmol/L Potassium 4.2 3.7 (3.5-5.1) mmol/L Chloride 89 L 91 L (98-107) mmol/L Carbon Dioxide 22 21 (21-32) mmol/L BUN 12 12 (6-23) mg/dl Creatinine 0.66 0.70 (0.6-1.4) mg/dl Glucose 98 91 (70-99(Fasting)) mg/dl Calcium 8.8 8.1 L (8.6-10.3) mg/dl AST 37 (13-39) U/L ALT 34 (7-52) U/L Alkaline Phosphatase 59 (34-104) U/L Total Protein 7.2 (6.0-8.3) gm/dl Albumin 3.7 (3.4-5.0) gm/dl Intake and Output 08/04/24 08/05/24 08/05/24 22:59 06:59 14:59 Intake Total 550 / 650 100 / 650 100 / 100 Output Total 550 / 550 Balance 550 / 100 -450 / 100 100 / 100 Intake: IV 550 / 650 100 / 650 100 / 100 Ampicillin/Sulbactam Sod 3,000 100 / 100 100 / 100 mg In 100 ml @ 200 mls/hr IV Q6H [facility] Rx#:[id number] Sodium Chloride 0.9% 500 ml @ 500 / 500 999 mls/hr IV .Q31M ONE Rx#: [id number] cefTRIAXone SODIUM 2,000 mg In 50 / 50 50 ml @ 100 mls/hr IV NOW STA Rx#:[id number] Output: Urine 550 / 550 Other: Weight 84.5 kg 82.327 kg Weight Measurement Method Chair Scale Built in [facility] Diagnostic Findings EKG performed at 08/04/2024 at 1835 revealed sinus rhythm with sinus arrhythmia at 71 bpm Echocardiogram performed 08/05/2024: mild concentric left ventricular hypertrophy, LVEF in the range of 55 to 60%, moderate aortic valve calcification, moderate to borderline severe aortic stenosis is present with peak continuous-wave Doppler velocity obtained from the right sternal border, 4 m/s and velocities as obtained from the other imaging perspective in the range of 3.6 to 3.7 m/s. Mild aortic valve regurgitation present Paired to the previous echocardiogram performed as an outpatient within the [facility] system dated 01/22/2023 the severity of the aortic valve stenosis has progressed.
--- NOTE | 2024-08-05 13:16 | Hospitalist Progress Note ---
Date of Service August 05, 2024 Assessment & Plan (1) SOB (shortness of breath): Plan: Shortness of breath Multifactorial: Subacute CHF Community-acquired pneumonia/possible aspiration, no sepsis for now Has been on intravenous Unasyn and Oral doxycycline Gram stain of the sputum showed rare epithelial cells and many gram-positive cocci and moderate gram-negative bacilli and the final culture is pending Blood cultures were not taken The patient is clinically much better and will continue with current antibiotic Acute heart failure with preserved EF History of borderline severe aortic valve stenosis SSS status post PPM Valvular heart disease (moderate , trace AR) ECHO of the Heart showed - concentric LVH, LV systolic function is normal with EF 55 to 60%, aortic valve is moderately calcified with borderline severe aortic stenosis Mild aortic regurgitation Appreciate cardiology input and recommendation Received intravenous furosemide 20 mg on admission and holding it for now in case sodium level is overcorrected Will decrease fluid intake to 1.5 L Situational hypertension, possible chronic BP elevation given LVH on last echo Troponin elevation secondary to illness Doubt any ACS Blood pressure is controlled with current medication Acute hyponatremia Hypoosmolar hyponatremia secondary to diarrheal illness, pneumonia, alcohol abuse contributory Low sodium likely due to alcohol abuse and also contributed by recent diarrhea Could be secondary to pneumonia as well with component of SIADH Sodium level has not improved remains at 123 Will hold antidepressant medicine for now Will monitor PRP History of alcohol abuse Has been on gabapentin protocol for possible withdrawal Does not have any tremors or any other withdrawal symptoms at this time Has history of essential tremor New onset anemia, possibly dilutional, no overt source of bleeding for now, FOBT done at the ER was negative Will monitor CBC Anxiety/mood disorder Past tobacco abuse DVT prophylaxis. Artem subcu Full code Text document was generated using [employer] voice recognition software. It may contain grammatical or spelling errors. Kindly contact undersigned for clarification of any documentation item in question. Admission and Anticipated Discharge Date Admission Date: August 04, 2024 Subjective 08/05/2024 The patient was seen and examined in ICU He has been feeling much better today and denies any chest pain, palpitation or shortness of breath Remains weak His cough is better and no fever and or chills Review of Systems Review of Systems: All systems reviewed and are unremarkable except as noted below Physical Exam Physical Exam: Lying in bed without any acute distress Constitutional: well developed, well nourished, + ill appearing and average body habitus Eyes: PERRL, conjunctivae normal, anicteric sclerae ENMT: external ear and nose normal, oropharynx normal Neck: trachea midline, no thyromegaly Respiratory: + respiratory distress ( minimal distres s at rest) Auscultation: + diminished lung sounds and + crackles ( Bibasilar crackles) Cardiovascular: Rate/Rhythm: regular rate and regular rhythm; not tachycardic Heart Sounds: normal S1 and normal S2; no murmur Extremities: no edema Gastrointestinal (Abdomen): Inspection/Auscultation: normal bowel sounds; abdomen not distended Percussion/Palpation: abdomen soft; abdomen nontender Musculoskeletal: No acute arthritis involving any of the joint Neurologic: normal touch/pain/proprioception and moves all extremities; no focal motor deficits Psychiatric: A+Ox3, euthymic affect Lymphatic: no cervical or axillary lymphadenopathy Results & Data Results & Data Vital Signs (Past 12 Hours) Vital Signs Temp Pulse Pulse Resp BP BP Pulse Ox 08/05/24 12:03 66 08/05/24 11:09 64 08/05/24 11:00 36.6 C 88 19 119/78 98 08/05/24 10:06 67 08/05/24 09:12 71 08/05/24 08:03 67 08/05/24 07:40 122/75 08/05/24 07:39 75 08/05/24 07:15 74 08/05/24 07:00 36.7 C 79 18 122/75 97 08/05/24 06:00 69 20 97 08/05/24 05:00 78 16 99 08/05/24 04:00 68 19 93 08/05/24 03:10 36.9 C 73 20 150/80 H 95 08/05/24 03:08 150/80 H 08/05/24 03:03 84 25 H 08/05/24 02:00 73 20 93 08/05/24 01:18 72 21 92 O2 Del Method 08/05/24 12:03 08/05/24 11:09 08/05/24 11:00 Room Air 08/05/24 10:06 08/05/24 09:12 08/05/24 08:03 08/05/24 07:40 08/05/24 07:39 08/05/24 07:15 08/05/24 07:00 Room Air 08/05/24 06:00 08/05/24 05:00 08/05/24 04:00 08/05/24 03:10 Room Air 08/05/24 03:08 08/05/24 03:03 08/05/24 02:00 08/05/24 01:18 Laboratory Results Short CBC 08/04/24 08/05/24 08/05/24 Range/Units 18:30 00:30 04:30 WBC 10.91 H 8.82 (4.8-10.8) K/ul Hgb 12.4 L 12.0 L 11.3 L (14.0-18.0) g/dl Hct 35.5 L 34.3 L 32.0 L (42.0-52.0) % Plt Count 291 284 (130-400) K/uL BMP 08/04/24 08/05/24 08/05/24 18:30 00:30 04:30 Sodium 122 L 124 L 123 L Potassium 4.2 3.7 Chloride 89 L 91 L Carbon Dioxide 22 21 BUN 12 12 Creatinine 0.66 0.70 Glucose 98 91 Calcium 8.8 8.1 L Liver Function 08/04/24 Range/Units 18:30 Total Bilirubin 0.8 (0.2-1.0) mg/dl AST 37 (13-39) U/L ALT 34 (7-52) U/L Alkaline Phosphatase 59 (34-104) U/L Albumin 3.7 (3.4-5.0) gm/dl Urine 08/04/24 Range/Units 21:49 Urine Color Yellow Urine Appearance Clear (Clear) Urine pH 6.0 (4.5-7.5) Ur Specific Hagerman 1.024 (1.000-1.030) Urine Protein 2+ H (Negative) Urine Glucose (UA) Negative (Negative) Medications Administered Current Inpatient Medications Acetaminophen (Acetaminophen 325 Mg Tab) 650 mg PO Q4H PRN PRN Reason: Pain or Fever Stop: 09/04/24 00:56 Benzonatate (Benzonatate 100 Mg Capsule) 100 mg PO TID PRN PRN Reason: Cough Stop: 09/04/24 02:16 Doxycycline Hyclate (Doxycycline Hyclate 100 Mg Cap) 100 mg PO BID DANIEL Stop: 08/10/24 08:59 Last Admin: 08/05/24 09:30 Dose: 100 mg Enoxaparin Sodium (Enoxaparin Inj 40 Mg/0.4 Ml Syr) 40 mg SQ QAM [facility] Stop: 09/04/24 08:59 Last Admin: 08/05/24 09:30 Dose: 40 mg Folic Acid (Folic Acid 1 Mg Tab) 1 mg PO QAM [facility] Stop: 09/04/24 08:59 Last Admin: 08/05/24 09:30 Dose: 1 mg Gabapentin (Gabapentin 600 Mg Tab) 600 mg PO Q6H DANIEL Stop: 08/05/24 15:01 Last Admin: 08/05/24 09:30 Dose: 600 mg Gabapentin (Gabapentin 600 Mg Tab) 600 mg PO Q8H [facility] Stop: 08/06/24 15:01 Gabapentin (Gabapentin 600 Mg Tab) 600 mg PO Q12H [facility] Stop: 08/07/24 15:01 Gabapentin (Gabapentin 600 Mg Tab) 600 mg PO Q24H [facility] Stop: 08/08/24 15:01 Promethazine HCl (Phenergan) 6.25 mg in 50.25 mls @ 201 mls/hr IV Q6H PRN PRN Reason: Nausea And Vomiting Stop: 09/03/24 23:49 Ampicillin Sodium/Sulbactam Sodium (Unasyn) 3,000 mg in 100 mls @ 200 mls/hr IV Q6H [facility] Stop: 08/10/24 02:59 Last Infusion: 08/05/24 12:19 Dose: Infused Lorazepam (Lorazepam 2 Mg/1 Ml Vial) 1 mg IV UD PRN; Protocol PRN Reason: EtOH Withdrawal AWSS Score 6,7 Stop: 09/03/24 23:47 Lorazepam (Lorazepam 2 Mg/1 Ml Vial) 2 mg IV UD PRN; Protocol PRN Reason: EtOH Withdrawal AWSS Score 8,9 Stop: 09/03/24 23:47 Lorazepam (Lorazepam 2 Mg/1 Ml Vial) 3 mg IV ONCE PRN; Protocol PRN Reason: EtOH Withdrawal AWSS Score 10+ Multivitamins (Multivitamin Tab) 1 tab PO QAM [facility] Stop: 09/04/24 08:59 Last Admin: 08/05/24 09:30 Dose: 1 tab Multivitamins/Minerals (Cerovite Adv Formula Tab) 1 tab PO DAILY [facility] Stop: 09/04/24 08:59 Last Admin: 08/05/24 09:30 Dose: 1 tab Oxycodone HCl (Oxycodone Hcl Ir 5 Mg Tab (Immediate Release)) 5 mg PO Q4H PRN PRN Reason: Pain Stop: 08/18/24 23:49 Polymyxin/Trimethoprim Sulfate (Trimethoprim/Polymyxin B) 1 drops OPB Q4H [facility] Stop: 08/12/24 05:59 Last Admin: 08/05/24 09:30 Dose: 1 drops Rosuvastatin Calcium (Rosuvastatin Calcium 10 Mg Tab) 10 mg PO QAM [facility] Stop: 09/04/24 08:59 Last Admin: 08/05/24 09:30 Dose: 10 mg Thiamine HCl (Thiamine Hcl 100 Mg Tab) 100 mg PO QAM [facility] Stop: 09/04/24 08:59 Last Admin: 08/05/24 09:30 Dose: 100 mg
[2024-08-05] MEDS ORDERED: GABAPENTIN 600 MG TAB PO SCH (20:00)
[2024-08-06 04:51] LABS: Basophils # (auto) 0.06 K/uL (0.00-0.20); Basophils % (auto) 0.6 %; Eosinophils # (auto) 0.06 K/uL (0.00-0.50); Eosinophils % (auto) 0.6 %; Hematocrit (blood only) 33.7 % (42.0-52.0); Hemoglobin 11.7 g/dl (14.0-18.0); Immature Granulocytes # (auto) 0.07 K/uL (0.01-0.20); Immature Granulocytes % (auto) 0.6 %; Lymphocytes # (auto) 1.35 K/uL (1.20-3.40); Lymphocytes % (auto) 12.5 %; Mean Corpuscular Hemoglobin 28.8 pg (25.0-34.0); Mean Corpuscular Hgb Conc 34.7 g/dL (32.0-36.0); Mean Platelet Volume 10.7 fL (9.4-12.4); Monocytes # (auto) 1.15 K/uL (0.11-0.59); Monocytes % (auto) 10.6 %; Neutrophils # (auto) 8.15 K/uL (1.40-6.50); Neutrophils % (auto) 75.1 %; Platelet Count 288 K/uL (130-400); RDW Coefficient of Variation 13.2 % (11.5-14.5); RDW Standard Deviation 40.3 fL (36.4-46.3); Red Blood Count 4.06 M/uL (4.70-6.10); White Blood Count 10.84 K/ul (4.8-10.8)
[2024-08-06 05:08] LABS: BUN Creatinine Ratio 10.3 (10-20); Creatinine Clr Calc Pharmacy 71.1 ml/min; Magnesium 1.8 mg/dl (1.7-2.4); Phosphorus 3.5 mg/dl (2.5-4.9); Potassium 3.6 mmol/L (3.5-5.1)
[2024-08-06] MEDS: FUROSEMIDE INJ 20 MG/2 ML VIAL IV ONE (10:36)
[2024-08-06] MEDS: POTASSIUM CHLORIDE CRTAB 20 MEQ TABCR PO STA (10:36)
[2024-08-06] MEDS: oxyCODONE HCL IR 5 MG TAB (IMMEDIATE RELEASE) PO PRN (12:26)
--- NOTE | 2024-08-06 13:07 | Hospitalist Progress Note ---
Date of Service August 06, 2024 Assessment & Plan (1) SOB (shortness of breath): Plan: Shortness of breath Multifactorial: Subacute CHF Community-acquired pneumonia/possible aspiration, no sepsis for now Has been on intravenous Unasyn and Oral doxycycline Gram stain of the sputum showed rare epithelial cells and many gram-positive cocci and moderate gram-negative bacilli and the final culture is pending Blood cultures were not taken The patient is clinically much better and will continue with current antibiotic Has been feeling much better still has minimal cough and requiring 2 L to maintain saturation Acute heart failure with preserved EF History of borderline severe aortic valve stenosis SSS status post PPM Valvular heart disease (moderate , trace AR) ECHO of the Heart showed - concentric LVH, LV systolic function is normal with EF 55 to 60%, aortic valve is moderately calcified with borderline severe aortic stenosis Mild aortic regurgitation Appreciate cardiology input and recommendation Received intravenous furosemide 20 mg on admission and holding it for now in case sodium level is overcorrected Will decrease fluid intake to 1.5 L Denies any shortness of breath at rest or with minimal exertion Awaiting cardiology reevaluation Situational hypertension, possible chronic BP elevation given LVH on last echo Troponin elevation secondary to illness Doubt any ACS Blood pressure is controlled with current medication Acute hyponatremia Hypoosmolar hyponatremia secondary to diarrheal illness, pneumonia, alcohol abuse contributory Low sodium likely due to alcohol abuse and also contributed by recent diarrhea Could be secondary to pneumonia as well with component of SIADH Sodium level has not improved remains at 123 Will hold antidepressant medicine for now Will monitor PRP-sodium level has gone up to 129 Will continue to restrict fluid intake to 1.5 L and monitor PRP History of alcohol abuse Has been on gabapentin protocol for possible withdrawal Does not have any tremors or any other withdrawal symptoms at this time Has history of essential tremor No signs and or symptoms of acute withdrawal New onset anemia, possibly dilutional, no overt source of bleeding for now, FOBT done at the ER was negative Will monitor CBC Anxiety/mood disorder Past tobacco abuse DVT prophylaxis. Lovenox subcu Full code Text document was generated using [employer] voice recognition software. It may contain grammatical or spelling errors. Kindly contact undersigned for clarification of any documentation item in question. Admission and Anticipated Discharge Date Admission Date: August 04, 2024 Subjective 08/05/2024 The patient was seen and examined in ICU He has been feeling much better today and denies any chest pain, palpitation or shortness of breath Remains weak His cough is better and no fever and or chills 08/06/2024 The patient was seen and examined in ICU with telemetry status He has been feeling much better Has minimal cough but no other symptoms Noted to have erythematous rash involving both the flank area likely secondary to pressure from the without any break in the skin Review of Systems Review of Systems: All systems reviewed and are unremarkable except as noted below Physical Exam Physical Exam: Lying in bed without any acute distress Constitutional: well developed, well nourished, + ill appearing and average body habitus Eyes: PERRL, conjunctivae normal, anicteric sclerae ENMT: external ear and nose normal, oropharynx normal Neck: trachea midline, no thyromegaly Respiratory: + respiratory distress ( minimal distres s at rest) Auscultation: + diminished lung sounds and + crackles ( Bibasilar crackles) Cardiovascular: Rate/Rhythm: regular rate and regular rhythm; not tachycardic Heart Sounds: normal S1 and normal S2; no murmur Extremities: no edema Gastrointestinal (Abdomen): Inspection/Auscultation: normal bowel sounds; abdomen not distended Percussion/Palpation: abdomen soft; abdomen nontender Neurologic: normal touch/pain/proprioception and moves all extremities; no focal motor deficits Psychiatric: A+Ox3, euthymic affect Lymphatic: no cervical or axillary lymphadenopathy Results & Data Results & Data Vital Signs (Past 12 Hours) Vital Signs Temp Pulse Resp BP Pulse Ox O2 Del Method O2 Flow Rate 08/06/24 08:00 70 20 08/06/24 07:06 63 27 H 08/06/24 06:06 60 16 96 08/06/24 05:03 61 18 98 08/06/24 04:18 64 18 95 08/06/24 02:42 37 C 72 19 139/72 97 Nasal Cannula 2 Laboratory Results Short CBC 08/06/24 Range/Units 04:14 WBC 10.84 H (4.8-10.8) K/ul Hgb 11.7 L (14.0-18.0) g/dl Hct 33.7 L (42.0-52.0) % Plt Count 288 (130-400) K/uL BMP 08/05/24 08/06/24 12:08 04:14 Sodium 125 L 129 L Potassium 3.6 Chloride 95 L Carbon Dioxide 25 BUN 9 Creatinine 0.87 Glucose 97 Calcium 8.0 L Medications Administered Current Inpatient Medications Acetaminophen (Acetaminophen 325 Mg Tab) 650 mg PO Q4H PRN PRN Reason: Pain or Fever Stop: 09/04/24 00:56 Benzonatate (Benzonatate 100 Mg Capsule) 100 mg PO TID PRN PRN Reason: Cough Stop: 09/04/24 02:16 Doxycycline Hyclate (Doxycycline Hyclate 100 Mg Cap) 100 mg PO BID [facility] Stop: 08/10/24 08:59 Last Admin: 08/06/24 10:04 Dose: 100 mg Enoxaparin Sodium (Enoxaparin Inj 40 Mg/0.4 Ml Syr) 40 mg SQ QAM [facility] Stop: 09/04/24 08:59 Last Admin: 08/06/24 10:05 Dose: 40 mg Folic Acid (Folic Acid 1 Mg Tab) 1 mg PO QAM [facility] Stop: 09/04/24 08:59 Last Admin: 08/06/24 10:05 Dose: 1 mg Gabapentin (Gabapentin 600 Mg Tab) 600 mg PO Q8H [facility] Stop: 08/06/24 15:01 Last Admin: 08/06/24 10:02 Dose: 600 mg Gabapentin (Gabapentin 600 Mg Tab) 600 mg PO Q12H [facility] Stop: 08/07/24 15:01 Gabapentin (Gabapentin 600 Mg Tab) 600 mg PO Q24H [facility] Stop: 08/08/24 15:01 Promethazine HCl (Phenergan) 6.25 mg in 50.25 mls @ 201 mls/hr IV Q6H PRN PRN Reason: Nausea And Vomiting Stop: 09/03/24 23:49 Ampicillin Sodium/Sulbactam Sodium (Unasyn) 3,000 mg in 100 mls @ 200 mls/hr IV Q6H [facility] Stop: 08/10/24 02:59 Last Infusion: 08/06/24 12:52 Dose: Infused Lorazepam (Lorazepam 2 Mg/1 Ml Vial) 1 mg IV UD PRN; Protocol PRN Reason: EtOH Withdrawal AWSS Score 6,7 Stop: 09/03/24 23:47 Lorazepam (Lorazepam 2 Mg/1 Ml Vial) 2 mg IV UD PRN; Protocol PRN Reason: EtOH Withdrawal AWSS Score 8,9 Stop: 09/03/24 23:47 Lorazepam (Lorazepam 2 Mg/1 Ml Vial) 3 mg IV ONCE PRN; Protocol PRN Reason: EtOH Withdrawal AWSS Score 10+ Multivitamins (Multivitamin Tab) 1 tab PO QAM [facility] Stop: 09/04/24 08:59 Last Admin: 08/06/24 10:05 Dose: 1 tab Multivitamins/Minerals (Cerovite Adv Formula Tab) 1 tab PO DAILY [facility] Stop: 09/04/24 08:59 Last Admin: 08/06/24 10:06 Dose: 1 tab Oxycodone HCl (Oxycodone Hcl Ir 5 Mg Tab (Immediate Release)) 5 mg PO Q4H PRN PRN Reason: Pain Stop: 08/18/24 23:49 Last Admin: 08/06/24 12:26 Dose: 5 mg Polymyxin/Trimethoprim Sulfate (Trimethoprim/Polymyxin B) 1 drops OPB Q4H [facility] Stop: 08/12/24 05:59 Last Admin: 08/06/24 10:36 Dose: 1 drops Rosuvastatin Calcium ([facility]atin Cal[facility] 10 Mg Tab) [facility] Stop: 09/04/24 08:59 Last Admin: 08/06/24 10:05 Dose: 10 mg Thiamine HCl (Thiamine Hcl 100 Mg Tab) [facility] Stop: 09/04/24 08:59 Last Admin: 08/06/24 10:06 Dose: 100 mg
--- NOTE | 2024-08-06 13:54 | Cardiology Progress Note ---
Date of Service August 06, 2024 Assessment & Plan (1) Acute heart failure with preserved ejection fraction: (2) Pneumonia: (3) Acute hyponatremia: (4) Aortic stenosis: Plan * He still there another week and next weekend mild troponin elevation, flat trend, consistent with CHF * Proceed with another dose of furosemide 20 mg x 1 along with potassium supplementation * Consider changing antibiotic regimen to 1 that requires less IV fluid as the Unasyn includes 100 mL of fluid every 6 hours * Continue subcutaneous Lovenox for DVT prophylaxis. * Posthospitalization, will proceed with ongoing workup of aortic valve stenosis. Admission and Anticipated Discharge Date Admission Date: August 04, 2024 Subjective Return to [employer] patient seen in cardiology follow-up. States he is feeling better. Telemetry reveals sinus rhythm in the 60s. Physical Exam Physical Exam: General: no acute distress and stated age Eyes: conjunctiva are pink and non-injected, sclera clear Neck: normal jugular venous pulse, no hepatojugular reflux Chest: normal shape and normal respiratory effort Lungs:Mildly reduced breath sounds in the bases Cardiac Exam: - regular heart sounds,1/6 systolic murmur Abdomen: abdomen soft, non-tender, no abnormal masses and no hepatosplenomegaly Musculoskeletal: no gait disturbance, no weakness Extremities: no edema and no cyanosis Neuro:awake, conversant, follows commands, no focal motor deficits Psych: appropriate affect and insight. Results & Data Vital Signs (Past 12 Hours) Vital Signs Temp Pulse Resp BP Pulse Ox O2 Del Method O2 Flow Rate 08/06/24 08:00 65 08/06/24 08:00 70 20 08/06/24 07:06 63 27 H 08/06/24 06:06 60 16 96 08/06/24 05:03 61 18 98 08/06/24 04:18 64 18 95 08/06/24 02:42 37 C 72 19 139/72 97 Nasal Cannula 2 Laboratory Results CBC 08/06/24 Range/Units 04:14 WBC 10.84 H (4.8-10.8) K/ul RBC 4.06 L (4.70-6.10) M/uL Hgb 11.7 L (14.0-18.0) g/dl Hct 33.7 L (42.0-52.0) % Plt Count 288 (130-400) K/uL Neut # (Auto) 8.15 H (1.40-6.50) K/uL Lymph # (Auto) 1.35 (1.20-3.40) K/uL [place] # (Auto) 1.15 H (0.11-0.59) K/uL Eos # (Auto) 0.06 (0.00-0.50) K/uL Baso # (Auto) 0.06 (0.00-0.20) K/uL Comprehensive Metabolic Panel 08/06/24 Range/Units 04:14 Sodium 129 L (136-145) mmol/L Potassium 3.6 (3.5-5.1) mmol/L Chloride 95 L (98-107) mmol/L Carbon Dioxide 25 (21-32) mmol/L BUN 9 (6-23) mg/dl Creatinine 0.87 (0.6-1.4) mg/dl Glucose 97 (70-99(Fasting)) mg/dl Calcium 8.0 L (8.6-10.3) mg/dl Intake and Output 08/05/24 08/06/24 08/06/24 22:59 06:59 14:59 Intake Total 200 / 670 220 / 670 100 / 100 Output Total 650 / 1150 Balance -450 / -480 220 / -480 100 / 100 Intake: IV 200 / 400 100 / 400 100 / 100 Ampicillin/Sulbactam Sod 3,000 200 / 400 100 / 400 100 / 100 mg In 100 ml @ 200 mls/hr IV Q6H [facility] Rx#:[id number] Oral 120 / 270 Output: Urine 650 / 1150 Other: # Unmeasured Voids 1 2 Weight 82.69 kg Weight Measurement Method Built in [facility] Diagnostic Findings EKG performed 08/04/2024 and interpret independently revealed atrial paced rhythm at 71 bpm, no significant repolarization abnormalities. Echocardiogram performed 06/05/2024: Mild concentric left ventricular hypertrophy Moderate to borderline severe aortic valve stenosis
[2024-08-06] MEDS ORDERED: GABAPENTIN 600 MG TAB PO SCH (23:45)
[2024-08-07] MEDS: GABAPENTIN 600 MG TAB PO SCH (02:47)
[2024-08-07 07:26] LABS: Basophils # (auto) 0.08 K/uL (0.00-0.20); Basophils % (auto) 0.9 %; Eosinophils # (auto) 0.28 K/uL (0.00-0.50); Eosinophils % (auto) 3.3 %; Hemoglobin 11.6 g/dl (14.0-18.0); Immature Granulocytes % (auto) 1.2 %; Lymphocytes # (auto) 1.35 K/uL (1.20-3.40); Lymphocytes % (auto) 15.8 %; Mean Corpuscular Hgb Conc 34.1 g/dL (32.0-36.0); Mean Platelet Volume 10.7 fL (9.4-12.4); Monocytes % (auto) 10.6 %; Neutrophils # (auto) 5.81 K/uL (1.40-6.50); Neutrophils % (auto) 68.2 %; Platelet Count 299 K/uL (130-400); RDW Coefficient of Variation 13.2 % (11.5-14.5); RDW Standard Deviation 41.2 fL (36.4-46.3); White Blood Count 8.52 K/ul (4.8-10.8)
[2024-08-07 08:06] LABS: BUN Creatinine Ratio 11.1 (10-20); Calcium 8.1 mg/dl (8.6-10.3); Creatinine Clr Calc Pharmacy 76.4 ml/min; Magnesium 1.9 mg/dl (1.7-2.4); Potassium 3.9 mmol/L (3.5-5.1)
[2024-08-07 10:35] VITALS: RESP 16; TEMP 97.7
--- NOTE | 2024-08-07 12:42 | Hospitalist Progress Note ---
Date of Service August 07, 2024 Assessment & Plan (1) SOB (shortness of breath): Plan: Shortness of breath Multifactorial: Subacute CHF Community-acquired pneumonia/possible aspiration, no sepsis for now Has been on intravenous Unasyn and Oral doxycycline Gram stain of the sputum showed rare epithelial cells and many gram-positive cocci and moderate gram-negative bacilli and the final culture is pending Blood cultures were not taken The patient is clinically much better and will continue with current antibiotic Has been feeling much better still has minimal cough and requiring 2 L to maintain saturation Denies any respiratory symptoms and has been saturating normally on room air without any evidence of shortness of breath with exertion He will be discharged home this afternoon Will finish the course of antibiotic with Augmentin and doxycycline for the next 6 days Acute heart failure with preserved EF History of borderline severe aortic valve stenosis SSS status post PPM Valvular heart disease (moderate , trace AR) ECHO of the Heart showed - concentric LVH, LV systolic function is normal with EF 55 to 60%, aortic valve is moderately calcified with borderline severe aortic stenosis Mild aortic regurgitation Appreciate cardiology input and recommendation Received intravenous furosemide 20 mg on admission and holding it for now in case sodium level is overcorrected Will decrease fluid intake to 1.5 L Denies any shortness of breath at rest or with minimal exertion Awaiting cardiology reevaluation Situational hypertension, possible chronic BP elevation given LVH on last echo Troponin elevation secondary to illness Doubt any ACS Blood pressure is controlled with current medication Blood pressure is controlled with current medications Acute hyponatremia Hypoosmolar hyponatremia secondary to diarrheal illness, pneumonia, alcohol abuse contributory Low sodium likely due to alcohol abuse and also contributed by recent diarrhea Could be secondary to pneumonia as well with component of SIADH Sodium level has not improved remains at 123 Will hold antidepressant medicine for now Will monitor PRP-sodium level has gone up to 129 Will continue to restrict fluid intake to 1.5 L and monitor PRP Sodium level is 133 today and is expected to improve further History of alcohol abuse Has been on gabapentin protocol for possible withdrawal Does not have any tremors or any other withdrawal symptoms at this time Has history of essential tremor No signs and or symptoms of acute withdrawal Will continue with folic acid and thiamine and does not have any symptoms of withdrawal New onset anemia, possibly dilutional, no overt source of bleeding for now, FOBT done at the ER was negative Will monitor CBC Anxiety/mood disorder Past tobacco abuse DVT prophylaxis. Lovenox subcu Full code Text document was generated using [employer] voice recognition software. It may contain grammatical or spelling errors. Kindly contact undersigned for clarification of any documentation item in question. Admission and Anticipated Discharge Date Admission Date: August 04, 2024 Subjective 08/05/2024 The patient was seen and examined in ICU He has been feeling much better today and denies any chest pain, palpitation or shortness of breath Remains weak His cough is better and no fever and or chills 08/06/2024 The patient was seen and examined in ICU with telemetry status He has been feeling much better Has minimal cough but no other symptoms Noted to have erythematous rash involving both the flank area likely secondary to pressure from the without any break in the skin 08/07/2024 Patient was seen and examined in telemetry unit in presence of the He has been having some cough but denies any other symptoms Has been ambulating without any difficulties His sodium level has been almost normalized Review of Systems Review of Systems: All systems reviewed and are unremarkable except as noted below Physical Exam Physical Exam: Lying in bed without any acute distress Constitutional: well developed, well nourished, + ill appearing and average body habitus Eyes: PERRL, conjunctivae normal, anicteric sclerae ENMT: external ear and nose normal, oropharynx normal Neck: trachea midline, no thyromegaly Respiratory: + respiratory distress ( minimal distres s at rest) Auscultation: + diminished lung sounds and + crackles ( Bibasilar crackles) Cardiovascular: Rate/Rhythm: regular rate and regular rhythm; not tachycardic Heart Sounds: normal S1 and normal S2; no murmur Extremities: no edema Gastrointestinal (Abdomen): Inspection/Auscultation: normal bowel sounds; abdomen not distended Percussion/Palpation: abdomen soft; abdomen nontender Neurologic: normal touch/pain/proprioception and moves all extremities; no focal motor deficits Psychiatric: A+Ox3, euthymic affect Lymphatic: no cervical or axillary lymphadenopathy Results & Data Results & Data Vital Signs (Past 12 Hours) Vital Signs Temp Pulse Pulse Resp BP Pulse Ox O2 Del Method 08/07/24 10:34 36.5 C 60 16 153/68 H 95 Room Air 08/07/24 07:46 36.6 C 62 18 132/75 93 Room Air 08/07/24 06:05 83 08/07/24 02:48 64 135/76 97 Room Air Laboratory Results Short CBC 08/07/24 Range/Units 06:32 WBC 8.52 (4.8-10.8) K/ul Hgb 11.6 L (14.0-18.0) g/dl Hct 34.0 L (42.0-52.0) % Plt Count 299 (130-400) K/uL BMP 08/07/24 06:32 Sodium 133 L Potassium 3.9 Chloride 99 Carbon Dioxide 28 BUN 9 Creatinine 0.81 Glucose 94 Calcium 8.1 L Medications Administered Current Inpatient Medications Acetaminophen (Acetaminophen 325 Mg Tab) 650 mg PO Q4H PRN PRN Reason: Pain or Fever Stop: 09/04/24 00:56 Amoxicillin/Clavulanate Potassium (Amoxicillin/Clavulanate 875 Mg Tab) 1 tab PO BIDM [facility]; Protocol Stop: 08/12/24 16:59 Benzonatate (Benzonatate 100 Mg Capsule) 100 mg PO TID PRN PRN Reason: Cough Stop: 09/04/24 02:16 Doxycycline Hyclate (Doxycycline Hyclate 100 Mg Cap) 100 mg PO BID [facility] Stop: 08/10/24 08:59 Last Admin: 08/07/24 09:18 Dose: 100 mg Enoxaparin Sodium (Enoxaparin Inj 40 Mg/0.4 Ml Syr) 40 mg SQ QAM [facility] Stop: 09/04/24 08:59 Last Admin: 08/07/24 09:20 Dose: 40 mg Folic Acid (Folic Acid 1 Mg Tab) 1 mg PO QAM [facility] Stop: 09/04/24 08:59 Last Admin: 08/07/24 09:18 Dose: 1 mg Gabapentin (Gabapentin 600 Mg Tab) 600 mg PO Q12H [facility] Stop: 08/07/24 15:01 Last Admin: 08/07/24 02:47 Dose: 600 mg Gabapentin (Gabapentin 600 Mg Tab) 600 mg PO Q24H [facility] Stop: 08/08/24 15:01 Promethazine HCl (Phenergan) 6.25 mg in 50.25 mls @ 201 mls/hr IV Q6H PRN PRN Reason: Nausea And Vomiting Stop: 09/03/24 23:49 Ampicillin Sodium/Sulbactam Sodium (Unasyn) 3,000 mg in 100 mls @ 200 mls/hr IV Q6H [facility] Stop: 08/10/24 02:59 Last Infusion: 08/07/24 10:37 Dose: Infused Lorazepam (Lorazepam 2 Mg/1 Ml Vial) 1 mg IV UD PRN; Protocol PRN Reason: EtOH Withdrawal AWSS Score 6,7 Stop: 09/03/24 23:47 Lorazepam (Lorazepam 2 Mg/1 Ml Vial) 2 mg IV UD PRN; Protocol PRN Reason: EtOH Withdrawal AWSS Score 8,9 Stop: 09/03/24 23:47 Lorazepam (Lorazepam 2 Mg/1 Ml Vial) 3 mg IV ONCE PRN; Protocol PRN Reason: EtOH Withdrawal AWSS Score 10+ Multivitamins (Multivitamin Tab) 1 tab PO QAM [facility] Stop: 09/04/24 08:59 Last Admin: 08/07/24 09:18 Dose: 1 tab Multivitamins/Minerals (Cerovite Adv Formula Tab) 1 tab PO DAILY [facility] Stop: 09/04/24 08:59 Last Admin: 08/07/24 09:18 Dose: 1 tab Oxycodone HCl (Oxycodone Hcl Ir 5 Mg Tab (Immediate Release)) 5 mg PO Q4H PRN PRN Reason: Pain Stop: 08/18/24 23:49 Last Admin: 08/06/24 12:26 Dose: 5 mg Polymyxin/Trimethoprim Sulfate (Trimethoprim/Polymyxin B) 1 drops OPB Q4H [facility] Stop: 08/12/24 05:59 Last Admin: 08/07/24 09:17 Dose: 1 drops Rosuvastatin Calcium (Rosuvastatin Calcium 10 Mg Tab) 10 mg PO [facility] Stop: 09/04/24 08:59 Last Admin: 08/07/24 09:19 Dose: 10 mg Thiamine HCl ([facility] Hcl 100 Mg Tab) [facility] Stop: 09/04/24 08:59 Last Admin: 08/07/24 09:19 Dose: 100 mg
[2024-08-07 14:54] VITALS: PULSE 61; O2SAT 96
--- NOTE | 2024-08-07 16:01 | Cardiology Progress Note ---
Date of Service August 07, 2024 Assessment & Plan (1) Acute heart failure with preserved ejection fraction: (2) Pneumonia: (3) Acute hyponatremia: (4) Aortic stenosis: Plan * mild troponin elevation, flat trend, consistent with CHF * Proceed with another dose of furosemide 20 mg x 1 along with potassium supplementation * Agree with change of antibiotic to oral Augmentin * Stable from cardiac perspective for discharge after dose of IV furosemide. * Posthospitalization, will proceed with ongoing workup of aortic valve stenosis.Appointment to be arranged. Admission and Anticipated Discharge Date Admission Date: August 04, 2024 Subjective Patient seen in cardiology follow-up. Spouse at bedside. Patient feels improved. Telemetry reveals sinus rhythm with atrial pacing in the 60s. Review of Systems Review of Systems: All systems reviewed & are unremarkable except as noted in HPI & below Physical Exam Physical Exam: General: no acute distress and stated age Eyes: conjunctiva are pink and non-injected, sclera clear Neck: normal jugular venous pulse, no hepatojugular reflux Chest: normal shape and normal respiratory effort Lungs:Mildly reduced breath sounds in the bases Cardiac Exam: - regular heart sounds,1/6 systolic murmur Abdomen: abdomen soft, non-tender, no abnormal masses and no hepatosplenomegaly Musculoskeletal: no gait disturbance, no weakness Extremities: no edema and no cyanosis Neuro:awake, conversant, follows commands, no focal motor deficits Psych: appropriate affect and insight. Results & Data Vital Signs (Past 12 Hours) Vital Signs Temp Pulse Pulse Resp BP Pulse Ox O2 Del Method 08/07/24 14:52 36.5 C 61 16 136/80 96 Room Air 08/07/24 10:34 36.5 C 60 16 153/68 H 95 Room Air 08/07/24 07:46 36.6 C 62 18 132/75 93 Room Air 08/07/24 06:05 83
[2024-08-07 16:10] VITALS: BP 133/69
[2024-08-07] MEDS: FUROSEMIDE INJ 20 MG/2 ML VIAL IV ONE (16:22)
[2024-08-07] MEDS: POTASSIUM CHLORIDE CRTAB 20 MEQ TABCR PO STA (16:23)
[2024-08-07] MEDS ORDERED: AMOXICILLIN/CLAVULANATE 875 MG TAB PO SCH (17:00)
--- NOTE | 2024-08-08 09:07 | Discharge Summary ---
Date of Service August 08, 2024 Admission HPI Per Admitting Provider History obtained from patient, family, and records. Medical history significant for SSS status post PPM, valvular heart disease (moderate , trace AR ), hyperlipidemia, skin cancer left cheek status post surgery, essential tremors, anxiety/mood disorder, alcohol abuse, past tobacco abuse. Last confinement December 2021 under Cardiology service for SSS status post PPM. Iatrogenic left pneumothorax status post chest tube insertion. Patient has been ill the last couple of weeks prior to leaving for family holiday vacation in [place]. Junky cough symptoms and sore throat symptoms. Occasional coughing with meals/water intake if not careful. Achy headache symptoms. Watery stools without abdominal pain. Not sure about sick contacts. Outpatient viral swabs negative. Not sure about sick contacts. Worsening symptoms with SOB on exertion and weight gain upon return home a few days ago. Last EtOH intake was 3 days ago. No prior history of alcohol withdrawal seizures. Patient seen at outpatient provider's office today. Chest x-ray showed mild to moderate pulmonary edema. Prednisone and doxycycline course prescribed. Patient consulted ER for worsening symptoms. Patient noted to be tremulous at the ER. 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 Admission Exam Per Admitting Provider Physical Exam: GENERAL: uncomfortable, tremulous, no respiratory distress SKIN: Normal color, warm HEENT: Alopecia, pink palpebral conjunctivae, no ptosis, dry buccal mucosa NECK : Supple, no tenderness CHEST : Decreased breath sounds, no tenderness HEART : RRR, systolic murmur ABDOMEN: Some distention, nontender RECTAL : Intact sphincter, brown stool (FOBT negative) EXTREMITIES : Minimal LE swelling, without tenderness, no other conspicuous deformities noted NEUROLOGIC : Coherent, no facial asymmetry, tremulous, gait and stance not assessed Principal Diagnosis CAP, acute hyponatremia, borderline severe aortic stenosis Discharge Exam Lying in bed without any acute distress Constitutional well developed, well nourished, + ill appearing and average body habitus Eyes PERRL, conjunctivae normal, anicteric sclerae ENMT external ear and nose normal, oropharynx normal Neck trachea midline, no thyromegaly Respiratory + respiratory distress ( minimal distress at rest) Auscultation: + diminished lung sounds and + crackles ( Bibasilar crackles) Cardiovascular Rate/Rhythm: regular rate and regular rhythm; not tachycardic Heart Sounds: normal S1 and normal S2; no murmur Extremities: no edema Gastrointestinal (Abdomen) Inspection/Auscultation: normal bowel sounds; abdomen not distended Percussion/Palpation: abdomen soft; abdomen nontender Neurologic normal touch/pain/proprioception and moves all extremities; no focal motor deficits Psychiatric A+Ox3, euthymic affect Lymphatic no cervical or axillary lymphadenopathy Discharge Data Allergies Allergy/AdvReac Type Severity Reaction Status Date / Time No Known Allergies Allergy Unverified 08/04/24 20:09 Consultations 08/04/24 21:04 ED Decision to Admit Stat 08/05/24 03:46 Consult Cardiology Routine Ordered Studies 08/04/24 21:57 CT head/brain wo con Stat Hospital Course (1) SOB (shortness of breath): Shortness of breath Multifactorial: Subacute CHF Community-acquired pneumonia/possible aspiration, no sepsis for now Has been on intravenous Unasyn and Oral doxycycline Gram stain of the sputum showed rare epithelial cells and many gram-positive cocci and moderate gram-negative bacilli and the final culture is pending Blood cultures were not taken The patient is clinically much better and will continue with current antibiotic Has been feeling much better still has minimal cough and requiring 2 L to main tain saturation Denies any respiratory symptoms and has been saturating normally on room air without any evidence of shortness of breath with exertion He will be discharged home this afternoon Will finish the course of antibiotic with Augmentin and doxycycline for the next 6 days Acute heart failure with preserved EF History of borderline severe aortic valve stenosis SSS status post PPM Valvular heart disease (moderate , trace AR) ECHO of the Heart showed - concentric LVH, LV systolic function is normal with EF 55 to 60%, aortic valve is moderately calcified with borderline severe aortic stenosis Mild aortic regurgitation Appreciate cardiology input and recommendation Received intravenous furosemide 20 mg on admission and holding it for now in case sodium level is overcorrected Will decrease fluid intake to 1.5 L Denies any shortness of breath at rest or with minimal exertion Awaiting cardiology reevaluation Situational hypertension, possible chronic BP elevation given LVH on last echo Troponin elevation secondary to illness Doubt any ACS Blood pressure is controlled with current medication Blood pressure is controlled with current medications Acute hyponatremia Hypoosmolar hyponatremia secondary to diarrheal illness, pneumonia, alcohol abuse contributory Low sodium likely due to alcohol abuse and also contributed by recent diarrhea Could be secondary to pneumonia as well with component of SIADH Sodium level has not improved remains at 123 Will hold antidepressant medicine for now Will monitor PRP-sodium level has gone up to 129 Will continue to restrict fluid intake to 1.5 L and monitor PRP Sodium level is 133 today and is expected to improve further History of alcohol abuse Has been on gabapentin protocol for possible withdrawal Does not have any tremors or any other withdrawal symptoms at this time Has history of essential tremor No signs and or symptoms of acute withdrawal Will continue with folic acid and thiamine and does not have any symptoms of wit hdrawal New onset anemia, possibly dilutional, no overt source of bleeding for now, FOBT done at the ER was negative Will monitor CBC Anxiety/mood disorder Past tobacco abuse DVT prophylaxis. Lovenox subcu Full code Text document was generated using [employer] voice recognition software. It may contain grammatical or spelling errors. Kindly contact undersigned for clarification of any documentation item in question. Total Time Total Time Spent Total Time Spent (In Minutes): 35 minutes Discharge Plan Discharge Items Patient Disposition: Home - Self-Care Reason For Visit: HYPONATREMIA, POSS CHF Discharge Diagnosis: CAP, acute hyponatremia, borderline severe aortic stenosis Condition on Discharge: Fair Activity: Resume your previous activity Non-emergency contact: Primary Care Provider Call non-emergency contact if: you have any medication questions and your symptoms worsen Follow-up/Referrals: Raphael Garcias MD [Primary Care Provider] - (Date & Time 08/14/2024 2:20 PM Provider: Ping Albright MD Department: General Internal Medicine [facility] ) Diet: Heart Healthy Addtl Attending Provider Instructions: Please take precaution to avoid falls Finish the course of antibiotics You can try some [id number] cough medicine Please give appointments with your healthcare provider Pending Studies at Discharge: No Stand-Alone Forms: My [facility] [employer], Smoking Cessation Medications and DC Order Prescriptions: New folic acid 1 mg Tablet 1 mg PO QAM Qty: 30 0RF amoxicillin-pot clavulanate 875-125 mg Tablet 1 tab PO BIDM 6 Days Qty: 12 0RF multivitamin with folic acid [Daily-Sushant (with folic acid)] 400 mcg Tablet 1 tab PO QAM Qty: 30 0RF thiamine HCl (vitamin B1) 100 mg Tablet 100 mg PO QAM Qty: 30 0RF furosemide [Lasix] 20 mg tablet 20 mg PO DAILY Qty: 30 0RF potassium chloride 10 mEq tablet extended release 10 meq PO DAILY Qty: 30 0RF Continued cholecalciferol (vitamin D3) 25 mcg (1,000 unit) Tablet 25 mcg PO DAILY calcium citrate-vitamin D3 315 mg-6.25 mcg (250 unit) Tablet 1 tab PO DAILY doxycycline hyclate 100 mg capsule 100 mg PO [facility] Rx Instructions: start 08/04/24 end date 08/14/24 acetaminophen 500 mg Tablet 1,000 mg PO Q8 PRN (Reason: Pain) benzonatate 100 mg capsule 100 mg PO TID PRN (Reason: Cough) rosuvastatin 10 mg tablet 10 mg PO QAM sertraline 50 mg tablet 50 mg PO QAM Sabdiisptce-Lubkd-WOR Complex 744-280-03-0.5 mg Tablet 1 tab PO UD Men's 50 Plus Multivitamin 400-20-370 mcg Tablet 1 tab PO DAILY Discharge Orders: Discharge Order (Routine); Ordered 08/07/24 Ordered By: Raúl Mena Admission Data Admit Date/Time: 08/04/24 23:48 Attending Provider: Raúl Mena Admit Provider: Zain Estrella Primary Care Provider: Raphael Garcias Other Providers: Zain Estrella; Bjorn Rouse Other Interventions: Discharge Summary Assessment (RN) Last Done: 08/07/24 16:06
[2024-08-08] MEDS ORDERED: GABAPENTIN 600 MG TAB PO SCH ×2 (12:00→15:00)
== END 2024-08-07 16:50 | disposition home or self-care (01) | DRG 177 ==
LOC: ED 17:06 → 1E 23:48 → 2S 08-06 14:27